=== PATIENT | female | born 1935 | race Caucasian/White ===

== ENCOUNTER 2017-01-16 16:41 | Observation (INO) | payer BC, OTHER ==
[~2017-01-16] VITALS: Ht 154.9 cm; Wt 58.8 kg
[~2017-01-16 16:41] MED LIST: ALBU1AER9 INH; AMB5 PO; AMLO-110 PO; ASPI1TAB83 PO; CHOL100010 PO; FEXO1TAB46 PO; FLUO0.1S12 OPB; FSM70 PO; OMEP20CA9 PO; ZFR4 PO
[2017-01-16] MEDS ORDERED: ASCA500 PO (19:21)
[2017-01-16] MEDS ORDERED: ALBU18002 INH (19:21)
[2017-01-16 19:39] LABS: BASO % 0.5 %; BASO ABS # 0.04 K/uL (0-0.2); COMPLETE YES; EOS % 7.3 %; HEMATOCRIT 39.3 % (37-47); IG% 0.1 %; LYMPH % 30.6 %; LYMPH ABS # 2.51 K/uL (1.2-3.4); MEAN CELL VOLUME 88.5 fL (80-100); MEAN CORPUSCULAR HEMOGLOBIN 29.7 pg (25-34); MEAN CORPUSCULAR HGB CONC 33.6 g/dl (32-36); MEAN PLATELET VOLUME 9.8 fL (7.4-10.4); MONO % 7.9 %; NEUT % 53.6 %; PLATELET COUNT 241 K/uL (130-400); RED BLOOD COUNT 4.44 M/uL (4.2-5.4); WHITE BLOOD COUNT 8.21 K/uL (4.8-10.8)
[2017-01-16 19:52] LABS: INR 0.9 (0.9-1.1); PROTHROMBIN TIME (PATIENT) 9.9 SECONDS (9.0-12.0)
[2017-01-16 19:59] LABS: ALT/SGPT 15 U/L (12-78); BLOOD UREA NITROGEN 18 mg/dl (7-18); CALCIUM 9.2 mg/dl (8.5-10.1); CARBON DIOXIDE 26 mmol/L (21-32); CHLORIDE 107 mmol/L (98-107); CREATININE 0.75 mg/dl (0.60-1.20); GLUCOSE 92 mg/dl (70-99); POTASSIUM 3.3 mmol/L (3.5-5.1); SODIUM 142 mmol/L (136-145)
[2017-01-16 20:02] LABS: ALKALINE PHOSPHATASE 95 U/L (45-117); AST/SGOT 14 U/L (15-37)
[2017-01-16 22:49] LABS: URINE APPEARANCE CLEAR (CLEAR); URINE BILIRUBIN NEG (NEG); URINE COLOR YELLOW; URINE EPITHELIAL CELL AUTO >30 /lpf (0-5); URINE NITRITE NEG (NEG); URINE SPECIFIC GRAVITY 1.018 (1.000-1.030); UROBILINOGEN NEG (NEG)
[2017-01-16 22:50] LABS: MANUAL MICROSCOPIC REQUIRED? NO; REVIEW REQ? NO
[2017-01-16] MEDS ORDERED: ZOLPIDEM TARTRATE 5 MG TAB PO PRN (23:15)
[2017-01-16] MEDS ORDERED: ALBUTEROL HFA 8 GM INHALER INH PRN (23:15)
[2017-01-16] MEDS ORDERED: ACETAMINOPHEN 325 MG TAB PO PRN (23:15)
[2017-01-16 23:18] LABS: MAGNESIUM 2.1 mg/dl (1.8-2.4)
[2017-01-16 23:25] VITALS: O2SAT 96
[2017-01-16 23:45] VITALS: BP 156/81; PULSE 77; TEMP 36.7; Ht 154.9 cm; Wt 58.8 kg
[2017-01-17] MEDS ORDERED: IV FLUIDS COMPLETED PRN (00:15)
--- NOTE | 2017-01-17 00:20 | EMERGENCY ROOM VISIT NOTE ---
History Report prepared by Te: Shabana Li Under the Supervision of: Dr. Ivan Shannon M.D. First contact with patient: 18:44 Chief Complaint: RECTAL BLEEDING Stated Complaint: RECTAL BLEEDING Nursing Triage Summary: Patient c/o rectal bleeding since yesterday afternoon, hx of the same, rectal prolapse. "It's almost like a period, it can saturate a pad." (approx 2 hours) History of Present Illness The patient is a 81 year old female who presents to the Emergency Room with complaints of worsening rectal bleeding that started yesterday afternoon. The patient states that she has been experiencing intermittent light rectal bleeding over the last couple months, but ever since yesterday afternoon it has been heavy. The patient states that the bleeding is so heavy that it could saturate a pad. The patient states that the bleeding is not associated to bowel movements and it seems to occur at any time. She states that she experienced similar symptoms in the past when she was diagnosed with a rectal prolapse. She adds that she could see her rectum had prolapsed earlier today. The patient is also experiencing back pain, urinary symptoms, and some worsening lower extremity edema. Pt denies LOC, headache, fevers, chills, diaphoresis, visual changes, neck pain, chest pain, breathing difficulties, nausea, vomiting, abdominal pain, melena, hematochezia, numbness, weakness, lymphadenopathy, rash , or other complaints. Source of History: patient Onset: yesterday afternoon Position: other (rectum) Quality: other (rectal bleeding) Timing: worsening Associated Symptoms: + back pain, + urinary symptoms Note: worsening lower extremity edema Review of Systems See HPI for pertinent positives and negatives. A total of ten systems were reviewed and were otherwise negative. Past Medical & Surgical Medical Problems: (1) Anemia Nos (2) Asthma, Unspecified (3) Diverticulosis Colon (W/O Ment Of Hemorrhage) (4) Esophageal Reflux (5) Esophageal Stricture (6) Hypertension Nos (7) Rectal bleeding (8) Rectal prolapse Family History Cancer Heart disease Social History Smoking Status: Never Smoker Alcohol Use: none Drug Use: none Marital Status: Housing Status: lives with significant other Occupation Status: retired Current/Historical Medications Scheduled Alendronate Sodium (Alendronate Sodium), 70 MG PO WK Amlodipine (Norvasc), 5 MG PO DAILY Ascorbic Acid (Vitamin C), Unknown Dose PO DAILY Aspirin (Aspirin), PO DAILY Cholecalciferol (Vitamin D), Unknown Dose PO DAILY Fexofenadine Hcl (Kimberlee), 180 MG PO DAILY Fluorometholone (Ophth) (Fluorometholone), 1 DROP OPB MWF Omeprazole (Prilosec), 20 MG PO DAILY Scheduled PRN Albuterol Sulfate (Proair Respiclick), 2 PUFFS INH Q4H PRN for Shortness of Breath Allergies Coded Allergies: Morphine (Verified Allergy, Intermediate, RASH, 01/16/17) Terazosin (Verified Allergy, Mild, RASH, 01/16/17) Physical Exam Vital Signs Date Time Temp Pulse Resp B/P Pulse Ox O2 Delivery O2 Flow Rate FiO2 01/16/17 22:50 82 20 151/77 94 Room Air 01/16/17 20:57 74 20 141/71 93 Room Air 01/16/17 19:31 71 01/16/17 19:20 70 20 130/68 99 Room Air 01/16/17 19:15 96 Room Air 01/16/17 17:09 37.1 79 16 147/76 97 Room Air Physical Exam GENERAL: Awake, alert, well-appearing, in no distress HENT: Normocephalic, atraumatic. Oropharynx unremarkable. EYES: Normal conjunctiva. Sclera non-icteric. NECK: Supple. No nuchal rigidity. FROM. No JVD. RESPIRATORY: Clear to auscultation. CARDIAC: Regular rate, normal rhythm. Extremities warm and well perfused. Pulses equal. ABDOMEN: Soft, non-distended. No tenderness to palpation. No rebound or guarding. No masses. RECTAL: Heme positive. MUSCULOSKELETAL: Chest examination reveals no tenderness. The back is symmetrical on inspection without obvious abnormality. There is no CVA tenderness to palpation. No joint edema. LOWER EXTREMITIES: Calves are equal size bilaterally and non-tender. No edema. No discoloration. NEURO: Normal sensorium. No sensory or motor deficits noted. SKIN: No rash or jaundice noted. Medical Decision & Procedures Laboratory Results 01/16/17 19:20 Red Blood Count 4.44, Mean Corpuscular Volume 88.5, Mean Corpuscular Hemoglobin 29.7, Mean Corpuscular Hemoglobin Concent 33.6, Mean Platelet Volume 9.8, Neutrophils (%) (Auto) 53.6, Lymphocytes (%) (Auto) 30.6, Monocytes (%) (Auto) 7.9, Eosinophils (%) (Auto) 7.3, Basophils (%) (Auto) 0.5, Neutrophils # (Auto) 4.40, Lymphocytes # (Auto) 2.51, Monocytes # (Auto) 0.65, Eosinophils # (Auto) 0.60, Basophils # (Auto) 0.04 01/16/17 19:20 Test 01/16/17 19:20 01/16/17 22:29 White Blood Count 8.21 K/uL (4.8-10.8) Red Blood Count 4.44 M/uL (4.2-5.4) Hemoglobin 13.2 g/dL (12.0-16.0) Hematocrit 39.3 % (37-47) Mean Corpuscular Volume 88.5 fL (80-100) Mean Corpuscular Hemoglobin 29.7 pg (25-34) Mean Corpuscular Hemoglobin Concent 33.6 g/dl (32-36) Platelet Count 241 K/uL (130-400) Mean Platelet Volume 9.8 fL (7.4-10.4) Neutrophils (%) (Auto) 53.6 % Lymphocytes (%) (Auto) 30.6 % Monocytes (%) (Auto) 7.9 % Eosinophils (%) (Auto) 7.3 % Basophils (%) (Auto) 0.5 % Neutrophils # (Auto) 4.40 K/uL (1.4-6.5) Lymphocytes # (Auto) 2.51 K/uL (1.2-3.4) Monocytes # (Auto) 0.65 K/uL (0.11-0.59) Eosinophils # (Auto) 0.60 K/uL (0-0.5) Basophils # (Auto) 0.04 K/uL (0-0.2) RDW Standard Deviation 44.0 fL (36.4-46.3) RDW Coefficient of Variation 13.6 % (11.5-14.5) Immature Granulocyte % (Auto) 0.1 % Immature Granulocyte # (Auto) 0.01 K/uL (0.00-0.02) Prothrombin Time 9.9 SECONDS (9.0-12.0) Prothromb Time International Ratio 0.9 (0.9-1.1) Activated Partial Thromboplast Time 26.8 SECONDS (21.0-31.0) Partial Thromboplastin Ratio 1.0 Anion Gap 9.0 mmol/L (3-11) Est Creatinine Clear Calc Drug Dose 48.5 ml/min Estimated GFR () 86.6 Estimated GFR (Non- 74.8 BUN/Creatinine Ratio 24.0 (10-20) Calcium Level 9.2 mg/dl (8.5-10.1) Magnesium Level 2.1 mg/dl (1.8-2.4) Total Bilirubin 0.2 mg/dl (0.2-1) Direct Bilirubin < 0.1 mg/dl (0-0.2) Aspartate Amino Transf (AST/SGOT) 14 U/L (15-37) Alanine Aminotransferase (ALT/SGPT) 15 U/L (12-78) Alkaline Phosphatase 95 U/L (45-117) Total Protein 7.0 gm/dl (6.4-8.2) Albumin 3.7 gm/dl (3.4-5.0) Lipase 85 U/L (73-393) Urine Color YELLOW Urine Appearance CLEAR (CLEAR) Urine pH 6.0 (4.5-7.5) Urine Specific [place] 1.018 (1.000-1.030) Urine Protein NEG (NEG) Urine Glucose (UA) NEG (NEG) Urine Ketones NEG (NEG) Urine Occult Blood NEG (NEG) Urine Nitrite NEG (NEG) Urine Bilirubin NEG (NEG) Urine Urobilinogen NEG (NEG) Urine Leukocyte Esterase SMALL (NEG) Urine WBC (Auto) 1-5 /hpf (0-5) Urine RBC (Auto) 0-4 /hpf (0-4) Urine Hyaline Casts (Auto) 0 /lpf (0-5) Urine Epithelial Cells (Auto) >30 /lpf (0-5) Urine Bacteria (Auto) NEG (NEG) Laboratory results reviewed by me ECG Indication: back/shoulder pain Rate (beats per minute): 77 Rhythm: normal sinus Findings: no acute ischemic change, no ectopy ED Course 1901: The patient was evaluated in room C4. A complete history and physical exam was performed. 2155: Upon reexamination, the patient was resting comfortably. I discussed the test results and treatment plan with her. The patient will be evaluated for further management. 2211: Discussed the patient's case with Dr. Deyvi KELLOGG. The patient will be evaluated for further treatment and disposition. Medical Decision Triage Nursing notes reviewed. The patient's presentation and history were concerning for GI bleeding. Etiologies such as diverticulosis, AVM, coagulopathy, prolapse,Colitis, inflammatory bowel disease, malignancy,Beatriz-Patricia tear, esophagitis, peptic ulcer disease, variceal bleed, gastritis, epistaxis, fissure, hemorrhoids, as well as others were entertained. The patient was evaluated. She had no evidence of prolapse on examination. She notes that it does come and go. The patient does have heme positive stools. The patient's CBC, chemistry panel, coags, LFTs and lipase were unremarkable. She did describe a significant amount of bleeding from her rectum. No obvious source is seen at this time. Further evaluation and management is appropriate to elucidate the cause and prevent any serious issues. Consultation was made with internal medicine. The patient was evaluated in the Emergency Room for further treatment. The chart was completed utilizing [employer] Speech voice recognition software. Grammatical errors, random word insertions, pronoun errors, and incomplete sentences are an occasional consequence of this system due to software limitations, ambient noise, and hardware issues. Any formal questions or concerns about the content, text, or information contained within the body of this dictation should be directly addressed to the physician for clarification. Consults Time Called: -- Consulting Physician: Dr. Deyvi KELLOGG Returned Call: [phone] Discussed the patient's case with Dr. Deyvi KELLOGG. The patient will be evaluated for further treatment and disposition. Impression Primary Impression: Lower GI bleed Scribe Attestation The scribe's documentation has been prepared under my direction and personally reviewed by me in its entirety. I confirm that the note above accurately reflects all work, treatment, procedures, and medical decision making performed by me. Departure Information Dispostion Being Evaluated By Hospitalist Referrals Kailee Longoria M.D. (PCP) Patient Instructions My [facility]
--- NOTE | 2017-01-17 05:06 | History and Physical ---
History & Physical Date & Time of Service: Jan 17, 2017 at 04:54 Chief Complaint: Rectal Bleeding, Rectal Prolapse Primary Care Physician: Kailee Longoria M.D. History of Present Illness Source: patient The patient is an 81-year-old female who presents to the emergency department with report of intermittent light rectal bleeding over the past few months, that worsens yesterday afternoon and has become have enough to soak a pad per hour. She does have a history of a rectal prolapse, has recently had a bilateral mastectomy, and is due for surgery on January 30 at [place] for gynecologic surgery, rectal prolapse surgery and breast reconstruction. She did have these symptoms in the past, and the bleeding was attributed to rectal prolapse. She does take aspirin daily. Past Medical/Surgical History Medical Problems: (1) Anemia Nos Status: Chronic (2) Asthma, Unspecified Status: Chronic (3) Diverticulosis Colon (W/O Ment Of Hemorrhage) Status: Chronic (4) Esophageal Reflux Status: Chronic (5) Esophageal Stricture Status: Chronic (6) Hypertension Nos Status: Chronic Family History Cancer Heart disease Social History Smoking Status: Never Smoker Smokeless Tobacco Use: No Drug Use: none Marital Status: Housing status: lives with significant other Occupational Status: retired Multi-Drug Resistant Organisms History of MDRO: No Allergies Coded Allergies: Morphine (Verified Allergy, Intermediate, RASH, 01/16/17) Terazosin (Verified Allergy, Mild, RASH, 01/16/17) Home Medications Scheduled Alendronate Sodium (Alendronate Sodium), 70 MG PO WK Amlodipine (Norvasc), 5 MG PO DAILY Ascorbic Acid (Vitamin C), Unknown Dose PO DAILY Aspirin (Aspirin), PO DAILY Cholecalciferol (Vitamin D), Unknown Dose PO DAILY Fexofenadine Hcl (Kimberlee), 180 MG PO DAILY Fluorometholone (Ophth) (Fluorometholone), 1 DROP OPB MWF Omeprazole (Prilosec), 20 MG PO DAILY Scheduled PRN Albuterol Sulfate (Proair Respiclick), 2 PUFFS INH Q4H PRN for Shortness of Breath Review of Systems The patient denies chest pain, palpitations, shortness of breath, cough, lower extremity swelling, vision change, hearing change, sore throat, fevers, chills, sweats, weight change, fatigue, nausea, vomiting, abdominal pain, pelvic pain, blood in urine, dysuria, urinary frequency or urgency, lightheadedness, dizziness, headache, memory loss, rash, imbalance, focal or generalized weakness , numbness or tingling in arms or legs, arthralgias or myalgias, back or neck pain, night sweats, or allergy symptoms. The review of systems is otherwise negative other than for that already noted above, and at least 10 systems have been reviewed. Physical Exam Vital Signs Date Time Temp Pulse Resp B/P Pulse Ox O2 Delivery O2 Flow Rate FiO2 01/16/17 23:45 36.7 77 18 156/81 Room Air 01/16/17 23:25 78 18 151/77 96 01/16/17 22:50 82 20 151/77 94 Room Air 01/16/17 20:57 74 20 141/71 93 Room Air 01/16/17 19:31 71 01/16/17 19:20 70 20 130/68 99 Room Air 01/16/17 19:15 96 Room Air 01/16/17 17:09 37.1 79 16 147/76 97 Room Air The patient is awake, well-developed and adequately nourished, alert and oriented 3, normocephalic and atraumatic, lying in bed and in no acute distress. HEENT--PERRL, EOMI, mucous membranes and oropharynx normal. Neck--supple, no JVD or bruits, thyroid normal, trachea midline, no adenopathy. Heart--normal S1 and S2, no extra beats, no murmurs, rubs or gallops. Lungs--clear bilaterally with good air movement, no respiratory distress, no accessory muscle use. Abdomen--normal bowel sounds and soft, nontender and nondistended, no hernias or masses, no organomegaly. Extremities--no cyanosis, clubbing or edema. There are good distal pulses b/l. Dermatologic--normal skin turgor, normal color, warm and dry, no abnormal lymph nodes, no rash. Neurologic--cranial nerves II through XII grossly intact, motor and sensory examination normal. Rheumatologic--normal range of motion, nontender, muscles and joints. Psychiatric--normal affect. Diagnostics Laboratory Results Results Past 24 Hours Test 01/16/17 19:20 01/16/17 22:29 Range/Units White Blood Count 8.21 4.8-10.8 K/uL Red Blood Count 4.44 4.2-5.4 M/uL Hemoglobin 13.2 12.0-16.0 g/dL Hematocrit 39.3 37-47 % Mean Corpuscular Volume 88.5 80-100 fL Mean Corpuscular Hemoglobin 29.7 25-34 pg Mean Corpuscular Hemoglobin Concent 33.6 32-36 g/dl Platelet Count 241 130-400 K/uL Mean Platelet Volume 9.8 7.4-10.4 fL Neutrophils (%) (Auto) 53.6 % Lymphocytes (%) (Auto) 30.6 % Monocytes (%) (Auto) 7.9 % Eosinophils (%) (Auto) 7.3 % Basophils (%) (Auto) 0.5 % Neutrophils # (Auto) 4.40 1.4-6.5 K/uL Lymphocytes # (Auto) 2.51 1.2-3.4 K/uL Monocytes # (Auto) 0.65 0.11-0.59 K/uL Eosinophils # (Auto) 0.60 0-0.5 K/uL Basophils # (Auto) 0.04 0-0.2 K/uL RDW Standard Deviation 44.0 36.4-46.3 fL RDW Coefficient of Variation 13.6 11.5-14.5 % Immature Granulocyte % (Auto) 0.1 % Immature Granulocyte # (Auto) 0.01 0.00-0.02 K/uL Prothrombin Time 9.9 9.0-12.0 SECONDS Prothromb Time International Ratio 0.9 0.9-1.1 Activated Partial Thromboplast Time 26.8 21.0-31.0 SECONDS Partial Thromboplastin Ratio 1.0 Sodium Level 142 136-145 mmol/L Potassium Level 3.3 3.5-5.1 mmol/L Chloride Level 107 98-107 mmol/L Carbon Dioxide Level 26 21-32 mmol/L Anion Gap 9.0 3-11 mmol/L Blood Urea Nitrogen 18 7-18 mg/dl Creatinine 0.75 0.60-1.20 mg/dl Est Creatinine Clear Calc Drug Dose 48.5 ml/min Estimated GFR () 86.6 Estimated GFR (Non- 74.8 BUN/Creatinine Ratio 24.0 10-20 Random Glucose 92 70-99 mg/dl Calcium Level 9.2 8.5-10.1 mg/dl Magnesium Level 2.1 1.8-2.4 mg/dl Total Bilirubin 0.2 0.2-1 mg/dl Direct Bilirubin < 0.1 0-0.2 mg/dl Aspartate Amino Transf (AST/SGOT) 14 15-37 U/L Alanine Aminotransferase (ALT/SGPT) 15 12-78 U/L Alkaline Phosphatase 95 45-117 U/L Total Protein 7.0 6.4-8.2 gm/dl Albumin 3.7 3.4-5.0 gm/dl Lipase 85 73-393 U/L Urine Color YELLOW Urine Appearance CLEAR CLEAR Urine pH 6.0 4.5-7.5 Urine Specific [place] 1.018 1.000-1.030 Urine Protein NEG NEG Urine Glucose (UA) NEG NEG Urine Ketones NEG NEG Urine Occult Blood NEG NEG Urine Nitrite NEG NEG Urine Bilirubin NEG NEG Urine Urobilinogen NEG NEG Urine Leukocyte Esterase SMALL NEG Urine WBC (Auto) 1-5 0-5 /hpf Urine RBC (Auto) 0-4 0-4 /hpf Urine Hyaline Casts (Auto) 0 0-5 /lpf Urine Epithelial Cells (Auto) >30 0-5 /lpf Urine Bacteria (Auto) NEG NEG EKG EKG shows normal sinus rhythm at 77 bpm, there are no acute ST-T changes. Impression Assessment and Plan Rectal bleeding/rectal prolapse--the patient is due for surgery on January 30, and has been following with surgeons at [place]. Consult Dr. Wallace from gastroenterology, as it is unclear whether this bleeding is related to rectal prolapse, which was not noted to be present during the ED examination, but whether this is another form of colon bleeding. She'll be kept nothing by mouth after midnight until GI assessment was completed. Hemoglobin is normal at this time at 13.2. Follow serial laboratories. We will hold aspirin 81 mg by mouth daily. Hypertension--continue amlodipine 5 mg by mouth daily. GERD--change omeprazole 20 mg by mouth daily to pantoprazole 40 mg IV daily. Asthma--available Ventolin HFA usage puffs 4 times a day when necessary. Hypokalemia--we'll place on IV fluids and repeat laboratories. We will hold alendronate, ascorbic acid, cholecalciferol, fexofenadine. Continue fluorometholone ophthalmic solution 1 drop OPB Monday. Level of Care Med/Surg Advanced Directives Existing Advance Directive: No Existing Living Will: No Existing Power of Project Asst: No Resuscitation Status FULL RESUSCITATION VTE Prophylaxis VTE Risk Assessment Done? Y/N: Yes Risk Level: Moderate Given or contraindicated: SCD's
[2017-01-17 07:44] VITALS: BP 126/73; PULSE 74; TEMP 36.6; O2SAT 91
[2017-01-17] MEDS: FLUOROMETHOLONE~ORDER AWAITING ACTION SCH ×2 (08:00→16:00)
[2017-01-17] MEDS ORDERED: FEXOFENADINE HCL 180 MG TAB PO SCH (09:00)
[2017-01-17] MEDS ORDERED: AMLODIPINE BESYLATE 5 MG TAB PO SCH (09:00)
[2017-01-17 09:33] LABS: BASO % 1.9 %; COMPLETE YES; EOS % 13.9 %; HEMATOCRIT 38.9 % (37-47); LYMPH % 33.7 %; LYMPH ABS # 1.77 K/uL (1.2-3.4); MEAN CORPUSCULAR HEMOGLOBIN 29.2 pg (25-34); MEAN CORPUSCULAR HGB CONC 33.2 g/dl (32-36); MEAN PLATELET VOLUME 9.3 fL (7.4-10.4); MONO % 8.2 %; NEUT % 42.3 %; PLATELET COUNT 222 K/uL (130-400); RED BLOOD COUNT 4.42 M/uL (4.2-5.4); WHITE BLOOD COUNT 5.25 K/uL (4.8-10.8)
[2017-01-17] MEDS ORDERED: PANTOprazole INJ 40 MG in SYRINGE 0 ML IV SCH (11:00)
--- NOTE | 2017-01-17 13:01 | Discharge Instructions ---
Discharge Instructions Date of Service Jan 17, 2017. Admission Reason for Admission: Rectal Bleeding, Rectal Prolapse Discharge Discharge Diagnosis / Problem: Rectal Prolapse Discharge Goals Goal(s): Decrease discomfort, Improve function, Increase independence Activity Recommendations Activity Limitations: as noted below Lifting Limitations: gradually increase as tolerated Exercise/Sports Limitations: gradually increase as tolerated May Resume Sexual Activity: when tolerated Shower/Bathe: no limitations . Instructions / Follow-Up Instructions / Follow-Up Rectal Prolapse with Bleeding: - At this time discontinue your daily aspirin which will likely be held in anticipation of your upcoming surgery. - Your blood counts have remained good during admission - Please keep your appointment for pre-operative clearance on and your scheduled surgery on January 30, 2017 - Please see your family doctor in 7-10 days - they may want to repeat your blood counts to confirm they are stable Diet: - Recommend and easy to digest diet and to keep stool soft for easy bowel movements - Stay hydrated and avoid constipating foods. Getting adequate fiber in your diet will help soften stools Follow-Up: - Please follow-up with your family doctor - Dr. Longoria - on January 25, 2017 at 9: 50 AM Current Hospital Diet Patient's current hospital diet: Clear Liquid Diet Discharge Diet Recommended Diet: Regular Diet Pending Studies Studies pending at discharge: no Medical Emergencies . Who to Call and When: Medical Emergencies: If at any time you feel your situation is an emergency, please call 911 immediately. . Non-Emergent Contact Non-Emergency issues call your: Primary Care Provider Call Non-Emergent contact if: you have a fever, your pain is concerning you, you have any medication questions . . "Provider Documentation" section prepared by Nanette Flowers. VTE Core Measure Inpt VTE Proph given/why not?: SCD's
--- NOTE | 2017-01-17 14:33 | Discharge Summary ---
Discharge Summary Date of Service Jan 17, 2017. (Nanette Flowers PA-C) Discharge Summary Admission Date: Jan 16, 2017 at 23:03 Discharge Date: Jan 17, 2017 Discharge Disposition: Home Principal Diagnosis: Rectal Prolapse with Bleeding Problems/Secondary Diagnoses: 1. Breast CA S/P Mastectomy 2. HTN 3. GERD 4. Asthma Consultations: 1. Gastroenterology (Nanette Flowers PA-C) Medication Reconciliation Continued Medications: Albuterol Sulfate (Proair Respiclick) 108 Mcg/Act Aer 2 PUFFS INH Q4H PRN for Shortness of Breath Alendronate Sodium (Alendronate Sodium) 70 Mg Tab 70 MG PO WK TAKES ON MONDAY Amlodipine (Norvasc) 5 Mg Tab 5 MG PO DAILY, TAB Ascorbic Acid (Vitamin C) Unknown Strength Tab Unknown Dose PO DAILY Cholecalciferol (Vitamin D) Unknown Strength Tab Unknown Dose PO DAILY Fexofenadine Hcl (Kimberlee) 180 Mg Tab 180 MG PO DAILY, TAB Fluorometholone (Ophth) (Fluorometholone) 0.1 % Debbie 1 DROP OPB MWF Omeprazole (Prilosec) 20 Mg Cap 20 MG PO DAILY, CAP Discontinued Medications: Aspirin (Aspirin) 81 Mg Tab PO DAILY Discharge Exam Review of Systems: Constitutional: No chills, No fever Eyes: No worsening of vision ENT: No nasal symptoms, No sore throat, No trouble swallowing Respiratory: No cough, No shortness of breath Cardiovascular: No chest pain Abdomen: No GI bleeding, No constipation, No diarrhea, No nausea, No pain, No vomiting Musculoskeletal: No calf pain, No swelling Genitourinary - Female: No dysuria Integumentary: No rash Physical Exam: General Appearance: WD/WN, no apparent distress, + thin Eyes: sclerae normal ENT: hearing grossly normal Neck: supple, no JVD, trachea midline Respiratory/Chest: lungs clear, normal breath sounds, no respiratory distress, no accessory muscle use Cardiovascular: regular rate, rhythm, no gallop, no murmur Abdomen / GI: normal bowel sounds, non tender, soft Extremities: no calf tenderness, no pedal edema Neurologic/Psychiatric: alert, oriented x 3 Skin: normal color, warm/dry (Nanette Flowers PA-C) Hospital Course ADMISSION: The patient is an 81-year-old female who presents to the emergency department with report of intermittent light rectal bleeding over the past few months, that worsens yesterday afternoon and has become have enough to soak a pad per hour. She does have a history of a rectal prolapse, has recently had a bilateral mastectomy, and is due for surgery on January 30 at [place] for gynecologic surgery, rectal prolapse surgery and breast reconstruction. She did have these symptoms in the past, and the bleeding was attributed to rectal prolapse. She does take aspirin daily. HOSPITAL COURSE: Ms. Goldsmith was admitted for rectal bleeding likely secondary to rectal prolapse. Concerned placed for alternative etiology and gastroenterology was consulted. Patient states she has been dealing with this rectal prolapse for approximately 3 months and normally has scant bleeding. However yesterday she was able to soak one pad with bright red blood which is unusual for her. However, since admission no further rectal bleeding has occurred. Patient experiences rectal prolapse with ambulation but resolution with sitting. She denies pain with this rectal prolapse. Hemoglobin on admission was 13.2 and remained stable with repeat of 12.9. Due to increased rectal bleeding she was instructed to discontinue her ASA at this time. She has preoperative clearance on 01/19/2017 with planned repair of rectal prolapse, gynecological repair, and breast reconstruction on 01/30/2017. PCP follow-up established for 01/25/2017. Recommendations given to consume a diet that is easy to digest and avoid constipation. Patient is afebrile, hemodynamically stable, and optimal for discharge home with outpatient follow-up. DISPOSITION: Routine monitoring with CBC as outpatient Total Time Spent: Greater than 30 minutes This includes examination of the patient, discharge planning, medication reconciliation, and communication with other providers. (Nanette Flowers, PA-C) i personally examined pt and verified all johnson points w A Kristie PAC feeling better wants to go home, has outpt f/u already set up. no further bleeding. no acute blood loss anemia stable for home as above (Jose Muniz D.O.) Discharge Instructions Please refer to the electronic Patient Visit Report (Discharge Instructions) for additional information. (Nanette Flowers, FRAN-C) Additional Copies To Kailee Longoria M.D.
[2017-01-17 15:03] VITALS: BP 127/60; PULSE 67; TEMP 36.7; O2SAT 94
[2017-01-17 15:27] VITALS: BP 127/60; PULSE 67; TEMP 36.7; O2SAT 94
--- NOTE | 2017-01-17 17:22 | GASTROINTESTINAL CONSULTATION ---
DATE OF CONSULTATION: 01/17/2017 GASTROENTEROLOGY CONSULTATION CHIEF COMPLAINT: Rectal bleeding and rectal prolapse. HISTORY OF PRESENT ILLNESS: Mrs. Goldsmith is an 81-year-old white female with a history of bilateral breast cancer with mastectomy and underwent a round of chemotherapy with prolonged hospitalization due to poor tolerance. The patient had presented with several episodes of rectal bleeding over the last couple of months that seemed to intensify over the past 24 hours and had soaked her Depend's undergarment, more thoroughly than it had in past months. This was painless in nature. She did report that she had a colonoscopy done approximately 6-[address] Joyner at [facility] and unfortunately I do not have the report of this procedure, but she tells me that there was nothing abnormal found and no samples were taken. At the present time, the patient has not had any additional bleeding. She does use aspirin on a daily basis but does not use any anticoagulants. PAST MEDICAL HISTORY: Significant for asthma, anemia, colonic diverticulosis, reflux, stricture, hypertension as well as the breast cancer with bilateral mastectomy and plain breast reconstruction in January 30. The patient was also seen by Dr. Wetzel in colorectal surgery from [place] and plans to address the rectocele also in progress for January. SOCIAL HISTORY: The patient denies tobacco or alcohol use. She is , lives with her significant other and is retired. ALLERGIES: SHE IS ALLERGIC TO MORPHINE WHICH PRODUCED HIVES AND TERAZOSIN. HOME MEDICATIONS: Include alendronate, amlodipine, ascorbic acid, aspirin, vitamin D, fexofenadine, fluorometholone ophthalmic, and omeprazole 20 mg daily. REVIEW OF SYSTEMS: Otherwise noncontributory based on 14-point exam except for mentioned above. The patient denies any current odynophagia, dysphagia, hematemesis, coffee-ground emesis. The patient does not have any melena, bright red blood per rectum or significant straining and seems to control her stools reasonably well with prune juice. She denied any chest pain, shortness of breath during these events and had no syncopal or near syncopal episodes, described. FAMILY HISTORY: Noncontributory. There is family history of cancer, though type is not known. There is also heart disease. PHYSICAL EXAMINATION: GENERAL: The patient is awake, alert and oriented x3, at this time resting comfortably in bed. The patient is oriented to person, place and time. ADMISSION VITAL SIGNS: Blood pressure 147/76, heart rate 79, respirations 16, afebrile at 37.1. HEENT: Sclerae are anicteric, conjunctiva moist. Oral mucosa moist. HEART: Normal S1, S2. LUNGS: Clear to auscultation. ABDOMEN: Soft, nontender, nondistended, normal bowel sounds, no rebound or guarding. I do not appreciate hepatosplenomegaly. There are no abdominal bruits. EXTREMITIES: Without clubbing, cyanosis or edema. RECTAL: Inspection of the perianal region reveals a small tag externally, but there is no evidence currently of a prolapsed tissue with the patient does describe can be generally a golf ball sized and is more frequently present than not. At the present time, she said that it has been exposed over the last 12-24 hours. ADMISSION LABORATORY STUDIES: Include white count of 8.2, hemoglobin 13.2, MCV 88, platelets 241,000. INR is 0.9, PTT 26.8. Potassium is slightly low at 3.3, BUN and creatinine are 18 and 0.75. LFTs are normal with total bilirubin 0.2, direct 0.1, AST 14, ALT 15, alkaline phosphatase 95, albumin 3.7, lipase 85. Urinalysis unremarkable. REPEAT LABORATORY STUDIES: Include hemoglobin was 12.9 this morning, white count 5.25, and platelets 222,000. Urinalysis - leukocyte esterase small amounts. There is no blood in the urine. IMPRESSION AND PLAN: The patient with report of rectal prolapse with upcoming surgery. This led to an increased amount of rectal bleeding recently that was painless in nature. The patient did undergo a colonoscopy recently by Dr. Joyner several weeks ago, although I do not have the report of this as the patient describes there were no abnormal findings detected. I believe at this point with her stable hemoglobin and lack of ongoing rectal bleeding, it is reasonable for her to be discharged with continued workup for her eventual surgery to deal with the rectal prolapse as well as any gynecologic and breast reconstruction needed. She should follow her hemoglobins at least once weekly. Prune juice in order to promote a routine bowel movement without straining and to avoid overly loose or formed stools is recommended. All the patient's questions were answered. If she has any questions, she knows to contact the GI office. Thank you for allowing me to participate in this patient's care.
[2017-01-18] MEDS ORDERED: PANTOprazole SOD 40 MG TAB PO SCH (09:00)
== END 2017-01-17 18:30 | disposition home or self-care (01) ==
LOC: ENRESERVDT → ENRESERVTM → C.EDB 16:42 → C.MS2W 23:03
PROVIDERS: ADMIT Hospitalist; ATTEND Family Medicine
DX: K62.5 Hemorrhage of anus and rectum (principal); K62.3 Rectal prolapse; E87.6 Hypokalemia; J45.909 Unspecified asthma, uncomplicated; K57.91 Diverticulosis of intestine, part unspecified, without perforation or abscess with bleeding; I10 Essential (primary) hypertension; K21.9 Gastro-esophageal reflux disease without esophagitis; Z79.82 Long term (current) use of aspirin; Z85.3 Personal history of malignant neoplasm of breast; Z90.13 Acquired absence of bilateral breasts and nipples; Z83.3 Family history of diabetes mellitus

== ENCOUNTER → 2017-10-26 | Outpatient (CLI) | payer BC ==
[~2017-10-26] MED LIST changes: +ALBU18002 INH; -ALBU1AER9 INH; -AMB5 PO; +ASCA500 PO; -ASPI1TAB83 PO; -ZFR4 PO
--- NOTE | 2017-10-26 16:12 | DIAGNOSTIC IMAGING REPORT ---
L KNEE 1 OR 2 VIEWS ROUTINE CLINICAL HISTORY: L KNEE PAIN pain COMPARISON: None. DISCUSSION: Moderate degenerative change patellofemoral and medial joint compartments. Minimal degenerative changes lateral joint compartment. No evidence for fracture or dislocation. No significant joint effusion. There is no evidence for soft tissue swelling. IMPRESSION: Moderate degenerative change primarily of the medial and patellofemoral joint compartments. No acute process. The above report was generated using voice recognition software. It may contain grammatical, syntax or spelling errors. Electronically signed by: David Briscoe M.D. 10/26/2017 4:11 PM Dictated Date/Time: 10/26/2017 4:10 PM
== END | disposition home or self-care (01) ==
LOC: C.RAD1850 15:57
PROVIDERS: ATTEND Student in an Organized Health Care Education/Training Program
DX: M25.562 Pain in left knee (principal); M89.8X6 Other specified disorders of bone, lower leg

== ENCOUNTER → 2017-11-09 | Outpatient (CLI) | payer BC | END | disposition home or self-care (01) | LOC: C.PAPS 15:31 | PROVIDERS: ATTEND Obstetrics & Gynecology | DX: Z01.419 Encounter for gynecological examination (general) (routine) without abnormal findings (principal) ==

== ENCOUNTER 2024-06-09 06:25 | Inpatient (IN) ==
--- OUTSIDE RECORDS SUMMARY | 2024-06-09 06:29 | External Medical Summary | Continuity of Care Document ---
Author Name Unknown Organization [facility] [address] Address [address] [place], [place] [id number] Care Team Providers Care Research Statistician Name Role Phone Kailee Longoria Primary Care Physician [phone] [id number] Date(s): 03/27/24 - 03/27/24 [facility] [address] [facility] [address] [facility] [address] [place], [place] [phone] Encounter Diagnosis Chronic kidney disease, unspecified(Final) - Discharge Disposition: Home or Self Care Attending Physician: MD Longoria Amy L Referring Physician: MD Longoria Amy L Allergies, Adverse Reactions, Alerts Substance Criticality Severity Reaction Reaction Severity Status morphine rash Active Immunizations Given and Recorded Vaccine Date Status Refusal Reason SARS COVID Vaccine Unspecified 12/08/23 Recorded RSV Vaccine Unspecified 12/08/23 Recorded influenza virus vaccine, inactivated 07/18/23 Give n influenza virus vaccine, inactivated 07/04/22 Give n influenza virus vaccine, inactivated 1 07/14/21 Re corded influenza virus vaccine, inactivated 07/08/21 Give n influenza virus vaccine, inactivated 08/10/20 Give n influenza virus vaccine, inactivated 07/05/19 Give n influenza virus vaccine, inactivated 08/03/18 Give n influenza virus vaccine, inactivated 06/27/17 Give n influenza virus vaccine, inactivated 07/21/16 Give n influenza virus vaccine, inactivated 2 09/09/15 Re corded SARS-CoV-2 mRNA (Pfizer 12+) bivalent 3 07/13/22 R ecorded SARS-CoV-2 (COVID-19) mRNA-1273 vaccine 4 01/20/22 Recorded SARS-CoV-2 (COVID-19) mRNA-1273 vaccine 5 08/09/21 Recorded SARS-CoV-2 (COVID-19) mRNA-1273 vaccine 6 12/14/20 Recorded SARS-CoV-2 (COVID-19) mRNA-1273 vaccine 7 11/16/20 Recorded zoster vaccine live 12/12/18 Recorded zoster vaccine, inactivated 8 10/07/18 Recorded pneumococcal 23-valent vaccine 07/16/17 Recorded pneumococcal 13-valent vaccine 03/25/15 Given tetanus/diphtheria/pertuss, acel (Tdap) 9 08/19/14 Recorded influenza virus vaccine, H1N1 10 12/01/09 Recorded pneumococcal 7-valent vaccine 11 08/02/07 Recorded pneumococcal 7-valent vaccine 12 08/02/07 Recorded 1Result Comment: duplicate 2Result Comment: 2018-09-26: Historical information-source unspecified 3Result Comment: 2022-11-24: Historical information-source unspecified 4Result Comment: 2022-11-24: Historical information-source unspecified 5Result Comment: 2021-09-22: Historical information-source unspecified 6Result Comment: 2021-07-19: Historical information-source unspecified 7Result Comment: 2021-07-19: Historical information-source unspecified 8Location History: [facility] 9Result Comment: 2018-09-26: Historical information-source unspecified 10Result Comment: 2021-07-19: Historical information-source unspecified 11Result Comment: Mistaken entry. 12Result Comment: 2021-07-19: Historical information-source unspecified Medications Kimberlee 180 mg oral tablet Start: 01/31/17 2:09:00 PM EDT, 1 tab, PO, Daily Start Date: 01/31/17 Status: Ordered amLODIPine 10 mg oral tablet Start: 11/02/23 6:40:00 PM EST, 1 tab, PO, Daily, Disp# 30 tab, Refills: 6, Pharmacy: [id number] Start Date: 11/02/23 Status: Ordered fluorometholone 0.1% ophthalmic suspension Start: 04/21/14 3:57:00 PM EDT, 1 drop, both eyes, [id number] Start Date: 04/21/14 Status: Ordered omeprazole 40 mg oral delayed release capsule Start: 11/13/23 11:18:00 AM EST, 1 cap, PO, Daily, Disp# 90 cap, Refills: 1, Pharmacy: [id number] Start Date: 11/13/23 Status: Ordered PARoxetine 10 mg oral tablet Start: 03/18/24 9:40:00 AM EDT, 1 tab, PO, Daily, Disp# 90 tab, Refills: 3, Pharmacy: [id number] Start Date: 03/18/24 Status: Ordered Tylenol Extra Strength 500 mg/15 mL oral liquid Start: 02/01/17 2:50:00 PM EDT, 15 mL, PO, q6h, Disp# 240 mL, Refills: 1, PRN: as needed for pain Start Date: 02/01/17 Status: Ordered Viactiv Soft Calcium Chews Start: 07/19/21 1:25:00 PM EDT, 1 shoft chew, PO, Daily Start Date: 07/19/21 Status: Ordered Problem List Condition Confirmation Course Effective Dates Status H ealth Status Informant Abnormal weight loss Confirmed Active Acquired absence of both breasts Confirmed Active Adult idiopathic generalized osteoporosis Confirmed Active Ankle edema Confirmed Active Ankle edema Confirmed Active Asthma Confirmed Active Benign essential HTN Confirmed Active Grief reaction Confirmed Active Medial meniscus tear Confirmed Active CKD (chronic kidney disease) stage 3, GFR 30-59 ml/min Confirmed Active Rhus dermatitis Confirmed Active Rhus dermatitis Confirmed Active Generalized osteoarthritis of multiple sites Confirmed Active Disorder of eye region Confirmed 07/03/02 Active Dizziness Confirmed Active Dysphagia Confirmed Active MENDENHALL (dyspnea on exertion) Confirmed Active MENDENHALL (dyspnea on exertion) Confirmed Active Essential hypertension Confirmed Active Facial laceration Confirmed Active Fatigue Confirmed Active Fatigue Confirmed Active Esophageal reflux Confirmed Active GI bleed Confirmed Active Chronic generalized pain Confirmed Active H/O fracture of rib Confirmed Active History of hypercalcemia Confirmed Active History of breast cancer in female Confirmed Active Status post total knee replacement, left Confirmed Active S/P total knee arthroplasty Confirmed Active IFG (impaired fasting glucose) Confirmed Active Chronic insomnia Confirmed Active Insomnia Confirmed Active Iron deficiency anemia Confirmed Active [place] of both eyes Confirmed Active Localized edema Confirmed Active Breast cancer in female Confirmed Active Menopausal osteoporosis Confirmed Active Anxious depression Confirmed Active Chronic nausea Confirmed Active Chronic nausea Confirmed Active Mild nausea Confirmed Active Left knee DJD Confirmed Active Paresthesia Confirmed Active Raynaud's disease Confirmed Active Rectal prolapse Confirmed Active Right shoulder pain Confirmed Active Major depressive disorder with single episode, in full remission Confirmed Active Insomnia Confirmed Active Strain of rotator cuff Confirmed Active Episode of syncope Confirmed Active Tear of medial meniscus of left knee Confirmed Active De Quervain's tenosynovitis, left Confirmed Active Episodic memory loss Confirmed Active Female cystocele Confirmed Active Vertigo Confirmed Active Procedures Procedure Date Related Diagnosis Body Site Status Chest X-ray 1 07/18/23 Completed Bone density scan 2 12/22/20 Compl eted CXR - Chest X-ray 3 12/02/20 Compl eted Plain X-ray ribs abnormal 4 08/08/19 Completed History of left knee replacement 08/16/18 Completed Total knee arthroplasty 5 07/18/18 Completed MRI of knee 6 04/04/18 Completed Date of last PAP test 7 11/09/17 C ompleted Date of last PAP test 11/09/17 Com pleted X-ray of left knee 8 10/26/17 Comp leted Removal 9 01/30/17 Completed Removal of skin physician asst fro m subcutaneous tissue of breast 01/30/17 Co mpleted Colonoscopy 10, 11, 12 11/10/16 Co mpleted Bone density scan 10/04/16 Complet ed GI Bleeding Scan 13 09/24/16 Compl eted Sigmoidoscopy, flexible; portillo gnostic, including collection of specimen(s) by brushing or washing, when performed (separate procedure) 14, 15 09/22/16 Comp leted Chest x-ray 16 09/20/[address] of abdomen and pelvis 17 09/20/16 Completed Date of last PAP test 18 09/14/16 Completed Mastectomy 19 08/09/16 Completed Mammogram 20 06/30/16 Completed MRI of breast 21 06/30/16 Complete d Multiple ultrasound guided b iopsies left breast 22 06/15/16 Completed Ultrasound guided biopsy, Le ft Breast 23 06/15/16 Completed Unilateral left digital diag nostic mammogram 24 06/15/16 Completed Mammogram 25 06/14/16 Completed Mammogram 26 06/07/16 Completed Mammogram 27 06/04/14 Completed Chest x-ray 28 08/09/13 Completed Ventilation-perfusion scan 29 08/09/13 Completed Stress echocardiography test interpretation 30 07/11/13 Completed History of cornea transplant 07/25/92 Completed History of corneal transplant 10/16/89 Completed Blepharoplasty of both eyelids Completed Rectal prolapse care 31 C ompleted 11. Hyperinflation with probable trace pleural effusions. 2. No airspace consolidation typical for pneumonia. 2AP Spine L1-L4 T Score: -0.5. Femur Neck Left T score: -1.3 Femur Neck Right T score: -1.7 Femur total left: -0.8 Femur total right -1.0. Z score: 0.7 3No acute process. 41. Periosteal reaction along the lateral left sixth rib. The appearance raises concern for an underlying osseous lesion versus a subacute to chronic rib fx. Correlate with a hx of malignancy and timecourse of potential rib trauma as a metastatic lesion is not excluded. 2. No other evidence of acute cardiopulmonary diease. 5[facility] Left knee 61. Marked chondrosis of the medial joint compartment. 2. Medial extrusion of the medial meniscus with asociated degenerative tar. 3. No evidence of cruciate or collateral ligamnet disruption. 4. No evidence of metastatic disease. 5. Small joint effusion and popleteal cyst. 7normall 8Moderate degenerative change primarily of the medial and patellofemoral joint compartments. No acute process. 9bilateral breast implants 10COLONOSCOPY cecal polyp cold bx, polyp 50 cm cold bx, polyp at 40 cm snared, rectal edema/erythema/ersoions proximal to anal verger over 3 cm bx, left colon extensive diverticulosis 113 tubular adenomas, rectal inflammation 12path reviewed and adenomas as above, the rectum path c/w rectal prolapse per path report. 13[facility] Impression: 1. Normal study. No evidence for GI bleeding focus 14[facility] Impression: diverticulosis in the recto-sigmoid colon an din the sigmoid colon. altered vascular congested, erythematous, friable (with contact bleeding) and inflamed mucosa form 3 to 10 cm. proximal to the anus. Biopsied. Bx's for histology and CMV staining. 15Pathology results: Rectal erosion, biopsy: 1) Microscopic findings most consistent with ischemia. See comment. 2) Stain for CMV negative. Comment: The biopsy shows extensive loss of the crypts. The lamina priopria appears somewhat hemorrhagic and there is acute inflammation present, though no cryptitis or crypt abscess formation. A stain for CMV inclusions is negative. The appearance appears mostconsistent with ischemia. Please correlate clinically. This case was reviewed as an intradeptmentalconsultation. 16[facility] Impression: 1. Negative chest 171. No evidence of bowel obstruction. No evidence of free air. 2. No evidence of acute appendicitis. 3. Diverticulosis. No evidence of acute peridiverticular inflammatory change. 4. Cholelithiasis. 18normal 19bilateral 201. there are metallic biopsy marker is within the patient's biopsy proven cancer is in the left 12:00 and 2:00 posterior breast, which are located at least 5cm apart based on MRI. 2. There is another small 3mm enhancing focus with washout kinetics in the 12:00 and 1:00 posteriorleft breast that is also suspicious. If breast conservation therapy is being considered as a treatment ooption, then second look ultrasound and possible core needle biopsy is recommended. 3. No suspicious axillary, internal mammary or subpectoral lymphadenopty bilaterally. 4. No definite MRI evidence of malignancy within the right breast. 5. Multilobulated 4x5cm T2 hyperintense mass in the right breast, that is not fully evaluated basedon this exam given that is is not completely within the field of view. Further chracterization witha right upper quadrant ultrasound is recommended, if no prior ultrasound or CTs are available for comparison. 6. Probable linear atelectasis in the dependednt portion of the visualized right lung. The patient will receive written notification of the results. 21metal bx marker in cancer in L @12;00; 3mm enhancing focus w/washout kinetics 12:00-1:00 post L; multilobulated 4X5cm T2 hyperintense mass in R; linear atelectasis of R lung 22[facility] Impression: Ultrasound guided biopsy 1. Status post ultrasound guided core biopsy in the 12:00 and 2:30 axes of the left breast, with biopsy markers placed at each site 23Please refer to ther eport from left breast ultrasound guided core biopsy performed at the same time for full detail. 24[facility] Impression: Post procedure imaging for marker placement Please refer to the report from left breast ultrasound-guided core biopsy performed at the same time for full detail 251. Ultrasound guided core needle biopsy is recommended for an indeterminate sold 17mm mass in the 12:00 left breast, which correlates as palpated and also correlates with the mammographic asymmetry. 2. Ultrasound guided core needle biopsy is also recommended for a second smaller, 4mm hypoechoic solid mass in the 2:30 left breast. 26The 2cm focal asymmetry with possible associated architectural distortion near the new palpable lump in the upper outer left breast needs additional evaluation. 27WNL/REPEAT 1 YR 28No acute cardiopulmonary findings 29Low porbability of acute pulmonary embolus 30resting echo images: The left ventricle is normal in size and systolic function. There is mild concentric left ventricular hypertrophy. An estimated left ventricuar ejection fraction is 60%. the leftatrial size is normal. the right ventricle is normal in size and fuction. right atrial size is normal. ther aortic root is normal in size. the mitral valve is normal. there is mitral annular calcification noted. a normal appearing tri-leaflet aorti valve is present. Trace aortic valve insufficiency. The pulmonic vlave is not well seen, but is grossly normal. Trace pulmonic valvular regurgitation.The tircuspid vlave is normal. no evidence of a pericardial effusion, mass or throbus is present. No evidence of cardiac mass or throbus is present. Stress echo images: there was improvemtn in left ventricular systolic funciton and a reduction in left ventricular cavity size poss stress. There was normal augmentation of all left ventricular wall segments post exercise. 31repair of 02/17/17 Results Laboratory List Name Date Creatinine Level (CREAT W/GFR (EST.)) 10/08 Most recent to oldest [Reference Range]: 1 eGFR CKD-EPI [>60 mL/min/1.73 m2] 47 mL/ min/1.73 m2 1 *LOW* (03/27/24 11:47 AM) Estimated CrCl 27.47 mL/min (03/27/24 12:43 PM) Cret [0.60-1.00 mg/dL] 1.13 mg/dL *HI* (03/27/24 11:47 AM) 1Result Comment: Testing Performed By: Dept of Pathology [facility], [address] [place] [id number] Social History Social History Type Response Smoking Status Never smoked cigaret beto Sex Female Patient Care team information Care Team Personnel Name: SCOTT Xiong Tara Position: Nurse Pract - Family Med Member Role: Lifetime Relationship Address: Address: [address] [place] [id number] [place] Name: MD Longoria Amy L Position: Physician - Family Med Member Role: Primary Care Provider Address: Address: [address] [place] [id number] [place] Care Team Related Persons Name: MARLENY ELLSWORTH Address: [place] Address: home [address] [phone]
--- OUTSIDE RECORDS SUMMARY | 2024-06-09 06:29 | External Medical Summary | Continuity of Care Document ---
Author Name Unknown Organization [place] [address] [address] Address [address] [facility] [address] [place] [id number] Care Team Providers Care Roll Filler Name Role Phone Kailee Longoria Primary Care Physician [phone] [id number] Date(s): 03/22/24 - 03/22/[address] [place] [address] [facility] [address] [facility], [address], Entrance A [place] [address] [phone] Encounter Diagnosis Body mass index [BMI] 22.0-22.9, adult(Discharge Diagnosis) - 03/22/24 Breast cancer, left(Discharge Diagnosis) - 03/22/24 Discharge Disposition: Home or Self Care Attending Physician: MD Sow Kristine L Referring Physician: MD Longoria Amy L [...] Daily, Disp# 30 tab, Refills: 6, [id number] Start Date: 11/02/23 Status: Ordered fluorometholone 0.1% ophthalmic suspension Start: 04/21/14 3:57:00 PM EDT, 1 drop, both eyes, qMonWedFri Start Date: 04/21/14 Status: Ordered omeprazole 40 mg oral delayed release capsule Start: 11/13/23 11:18:00 AM EST, 1 cap, PO, Daily, Disp# 90 cap, Refills: 1, Pharmacy: [id number] Start Date: 11/13/23 Status: Ordered PARoxetine 10 mg oral tablet Start: 03/18/24 9:40:00 AM EDT, 1 tab, PO, Daily, Disp# 90 tab, Refills: 3, Pharmacy: [id number] Start Date: 03/18/24 Status: Ordered Tylenol Extra Strength 500 mg/15 mL oral liquid Start: 02/01/17 2:50:00 PM EDT, 15 mL, PO, q6h, Disp# 240 mL, Refills: 1, PRN: as needed for pain Start Date: 02/01/17 Status: Ordered Viactiv Soft Calcium Chews Start: 07/19/21 1:25:00 PM EDT, 1 shoft chew, PO, Daily Start Date: 07/19/21 Status: Ordered Mental Status 03/22/24 Barriers to Learning one year None evide nt Mandatory Health Literacy Documentation Yes Health Literacy Communication Barriers N ever Primary Language Libyan Problem List Condition Confirmation Course Effective Dates [...] Female cystocele Confirmed Active Vertigo Confirmed Active Diagnosis Diagnosis Type Effective Dates Health Status Cl inical Service Informant Breast cancer, left Discharge Diagnosis 03/22/24 Body mass index [BMI] 22.0-22.9, adult Discharge Diagnosis 03/22/24 Non-Specified Procedures Procedure Date Related Diagnosis Body Site [...] Removal 9 01/30/17 Completed Removal of skin director digital analytics fro m subcutaneous tissue of breast 01/30/17 [...] other evidence of acute cardiopulmonary diease. 5[facility] Left knee 61. Marked chondrosis of the [...] c/w rectal prolapse per path report. 13[facility] Impression: 1. Normal study. No evidence for GI bleeding focus 14[facility] Impression: diverticulosis in the recto-sigmoid colon an [...] case was reviewed as an intradeptmentalconsultation. 16[facility] Impression: 1. Negative chest 171. No evidence [...] R; linear atelectasis of R lung 22[facility] Impression: Ultrasound guided biopsy 1. Status post ultrasound guided core biopsy in the 12:00 and 2:30 axes of the left breast, with biopsy markers placed at each site 23Please refer to ther eport from left breast ultrasound guided core biopsy performed at the same time for full detail. 24[facility] Impression: Post procedure imaging for marker placement [...] wall segments post exercise. 31repair of 02/17/17 Vital Signs Most recent to oldest [Reference Range]: 1 Height 158 cm (03/22/24 7:53 AM) Patient Weight 56.5 kg (03/22/24 7:53 AM) Body Mass Index 22.63 kg/m2 (03/22/24 7:53 AM) Temperature [36.5-37.9 DegC] 36 DegC *LOW* (03/22/24 7:53 AM) Heart Rate 65 bpm (03/22/24 7:53 AM) Blood Pressure 163/69mmHg 1 (03/22/24 7:53 AM) Cuff Pulse Pressure 94 mmHg (03/22/24 7:53 AM) 1Result Comment: dr sow notified Social History Social History Type Response Smoking Status Never smoked cigaret beto Sex Female Patient Care team information Care Team Personnel Name: SCOTT Xiong Tara Position: Nurse Pract - Family Med Member Role: Lifetime Relationship Address: Address: [address] [place] [address], [place] [address] Name: MD Longoria Amy L Position: Physician - Family Med Member Role: Primary Care Provider Address: Address: [address] [place] [address], [place] [address] Care Team Related Persons Name: MARLENY ELLSWORTH Address: [place] Address: home [address] [place], [place] [id number]
--- OUTSIDE RECORDS SUMMARY | 2024-06-09 06:29 | External Medical Summary | Continuity of Care Document ---
Author Name Unknown Organization [place] [address] [place] [phone] Care Team Providers Care Hot Wound [place] Production Supervisor Name Role Phone Kailee Longoria Kameron Primary Care Physician [phone] [id number] Date(s): 05/10/24 - 05/10/24 [facility] [address] [place] [address], [address] [address] [phone] Encounter Diagnosis Body mass index [BMI] 22.0-22.9, adult(Discharge Diagnosis) - 05/10/24 Osteoporosis(Discharge Diagnosis) - 05/10/24 Discharge Disposition: Home or Self Care Attending Physician: AIRAM Remy Kimberly A Allergies, Adverse Reactions, Alerts Substance Criticality Severity Reaction Reaction Severity Status morphine rash Active Assessment and Plan Extracted from: Title:Office Visit Note Author:AIRAM Remy Kim berly A Date:05/10/24 1.Osteoporosis STATUS:Chronic condition exacerbated/progressive/side effects of treatment Has a history of osteoporosis that was previously treated with Prolia. Unfortunately, it appears that her last Prolia was over 1 year ago. Her DEXA is overdue, with her last in 12/2020. She has been having an increase in some of the smaller joints. Pain is fleeting and does not inhibit her activity. She has not had any recent falls or injuries. T-score was -1.3 on last DEXA scan. DATA:Labs reviewed. GOAL:Maintain stability. PLAN:Cont current monitoring. .DEXA scan ordered today Will order Prolia after test is completed/reviewed Patient is encouraged to stay active but always use great caution not to fall Continue Calcium and Vitamin Time spent on pre-visit plannin min Face to face time spent w/ patient: 16 min Time spent documenting pertinent clinical information into the EMR: 5 min Total time: 24 min Immunizations Given and Recorded Vaccine Date Status [...] Ordered amLODIPine 10 mg oral tablet Start: 05/08/24 7:50:00 AM EDT, 1 tab, PO, Daily, Disp# 30 tab, Refills: 6, Pharmacy: [id number] Start Date: 05/08/24 Status: Ordered fluorometholone 0.1% ophthalmic suspension Start: 04/21/14 3:57:00 PM EDT, 1 drop, both eyes, qMonWedFri Start Date: 04/21/14 Status: Ordered omeprazole 40 mg oral delayed release capsule Start: 11/13/23 11:18:00 AM EST, 1 cap, PO, Daily, Disp# 90 cap, Refills: 1, Pharmacy: [id number] Start Date: 11/13/23 Status: Ordered PARoxetine 10 mg oral tablet Start: 03/18/24 9:40:00 AM EDT, 1 tab, PO, Daily, Disp# 90 tab, Refills: 3, Pharmacy: [id number] Start Date: 03/18/24 Status: Ordered Tylenol Extra Strength 500 mg/15 mL oral liquid Start: 02/01/17 2:50:00 PM EDT, 15 mL, PO, q6h, Disp# 240 mL, Refills: 1, PRN: as needed for pain Start Date: 02/01/17 Status: Ordered Viactiv Soft Calcium Chews Start: 07/19/21 1:25:00 PM EDT, 1 shoft chew, PO, Daily Start Date: 07/19/21 Status: Ordered Mental Status 05/10/24 Barriers to Learning one year None evide nt Mandatory Health Literacy Documentation Yes Health Literacy Communication Barriers R jama Primary Language Irish Problem List Condition Confirmation Course Effective Dates [...] Diagnosis Diagnosis Type Effective Dates Health Status Clinical Service Informant Body mass index [BMI] 22.0-22.9, adult Discharge Diagnosis 05/10/24 Non-Specified Osteoporosis Discharge Diagnosis 05/10/24 Non-Specified Procedures Procedure Date Related Diagnosis Body [...] Removal 9 01/30/17 Completed Removal of skin small electric engine technician fro m subcutaneous tissue of breast 01/30/17 [...] other evidence of acute cardiopulmonary diease. 5[facility] Left knee 61. Marked chondrosis of [...] c/w rectal prolapse per path report. 13[facility] Impression: 1. Normal study. No evidence for GI bleeding focus 14[facility] Impression: diverticulosis in the recto-sigmoid colon an [...] case was reviewed as an intradeptmentalconsultation. 16[facility] Impression: 1. Negative chest 171. No evidence [...] R; linear atelectasis of R lung 22[facility] Impression: Ultrasound guided biopsy 1. Status post ultrasound guided core biopsy in the 12:00 and 2:30 axes of the left breast, with biopsy markers placed at each site 23Please refer to ther eport from left breast ultrasound guided core biopsy performed at the same time for full detail. 24[facility] Impression: Post procedure imaging for marker placement [...] oldest [Reference Range]: 1 Height 158 cm (05/10/24 3:16 PM) Patient Weight 55.3 kg (05/10/24 3:16 PM) Body Mass Index 22.15 kg/m2 (05/10/24 3:16 PM) Heart Rate 61 bpm (05/10/24 3:16 PM) Respiratory Rate 20 br/min (05/10/24 3:16 PM) Blood Pressure 122/68mmHg (05/10/24 3:16 PM) Cuff Pulse Pressure 54 mmHg (05/10/24 3:16 PM) Social History Social History Type Response Smoking Status Never smoked cigaret beto Sex Female Sex Representation Female (finding) [facility] Outpt Note * AIRAM Remy, Sussy Ha: PERFORM Event Display: [facility] Outpt Note Authored Date: [id number] Chief Complaint Bone/joint aches and pain History of Present Illness Patient is a 88yo female who presents today for acute visit. Has a history of osteoporosis that was previously treated with Prolia. Unfortunately, it appears that her last Prolia was over 1 year ago. Her DEXA is overdue, with her last in 12/2020. She has been having an increase in some of the smaller joints. Pain is fleeting and does not inhibit her activity. She has not had any recent falls or injuries. T-score was -1.3 on last DEXA scan. Review of Systems ROS per HPI Physical Exam Vitals & Measurements HR:61(Monitored) RR:20 BP:122/68 SpO2:94% HT:158cm WT:55.300kg(Dosing) WT:55.3kg BMI:22.15 PHQ2 Data(Data Documented on:05/10/2024 15:15) Emotional health assessment NEGATIVE Gen Appearance: Well developed, well nourishedNAD. A&O x 3. HEENT: NCAT. EOMI. Neck supple. No thyromegaly palpable. Lymph: No submandibular, posterior or anterior cervical adenopathy. CV: RRR. No rubs, or gallops. 2+/6 systolic murmur Lungs: CTAB. No wheezing, rales or rhonchi. Chest rises symmetrically. Abdomen: Scaphoid. No rashes.NABS x 4. Soft. Non-tender. No CVA tenderness bilaterally.No masses palpable. Ext: No LE edema. + 2 posterior tibial pulses. Skin: [place]. Supple. Good turgor. Assessment/Plan 1.Osteoporosis STATUS:Chronic condition exacerbated/progressive/side effects of treatment Has a history of osteoporosis that was previously treated with Prolia. Unfortunately, it appears that her last Prolia was over 1 year ago. Her DEXA is overdue, with her last in 12/2020. She has been having an increase in some of the smaller joints. Pain is fleeting and does not inhibit her activity. She has not had any recent falls or injuries. T-score was -1.3 on last DEXA scan. DATA:Labs reviewed. GOAL:Maintain stability. PLAN:Cont current monitoring. 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 Ankle edema Ankle edema Anxious depression Asthma Benign essential HTN Breast cancer in female Chronic generalized pain Chronic insomnia Chronic nausea Chronic nausea CKD (chronic kidney disease) stage 3, GFR 30-59 ml/min De Quervain's tenosynovitis, left Disorder of eye region Dizziness MENDENHALL (dyspnea on exertion) M[place]ALL (dyspnea on exertion) Dysphagia Episode of syncope Episodic memory loss Esophageal reflux Essential hypertension Facial laceration Fatigue Fatigue Female cystocele Generalized osteoarthritis of multiple sites GI bleed Grief reaction H/O fracture of rib History of breast cancer in female History of hypercalcemia IFG (impaired fasting glucose) Insomnia Insomnia Iron deficiency anemia 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 Localized edema Major depressive disorder with single episode, in full remission Medial meniscus tear Menopausal osteoporosis Mild nausea Paresthesia Raynaud's disease Rectal prolapse Rhus dermatitis Rhus dermatitis Right shoulder pain S/P total knee arthroplasty Status post total knee replacement, left Strain of rotator cuff Tear of medial meniscus of left knee Vertigo Resolved Abnormal loss of weight Acute cystitis Acute sinusitis Adult general medical exam Allergic rhinitis Anterior leg pain Arthralgia Bright red rectal bleeding Dysuria Leg swelling LOM (loss of memory) Medicare annual wellness visit, subsequent Medicare annual wellness visit, subsequent Mild nausea Osteoporosis Pre-op exam Preop examination Right foot pain Shortness of breath Wellness examination Procedure/Surgical History Chest X-ray| Service Date: 3Bone density scan| Service Date: 12/22/2020XR - Chest X-ray| Service Date: 1Plain X-ray ribs abnormal| Service Date: 08/08/2019History ofleft knee replacement| Service Date: 2018Total knee arthroplasty| Service Date: 07/18/2018MRI of knee| Service Date: 04/04/2018Date of last PAP test| Service Date: 11/09/2017Date oflast PAP test| Service Date: 11/09/2017X-ray of left knee| Service Date: 10/26/2017Removal| Service Date: 01/30/2017Removal of skin small electric engine technician from subcutaneous tissue of breast| Service Date: 01/30/2017Colonoscopy| Service Date: 11/10/2016Bone density scan| Service Date: 10/04/2016GI Bleeding Scan| Service Date: 09/24/2016Sigmoidoscopy, flexible; diagnostic, including collection of specimen(s) by brushing or washing, when performed (separate procedure)| Service Date: 09/22/2016CT of abdomen and pelvis| Service Date: 09/20/2016Chest x-ray| Service Date: 09/20/2016Date of last PAP test| Service Date: 09/14/2016Mastectomy| Service Date: 08/09/2016MRI of breast| Service Date: 06/30/2016Mammogram| Service Date: 06/30/2016Ultrasound guided biopsy, Left Breast| Service Date: 06/15/2016Unilateral left digital diagnostic mammogram| Service Date: 016Multiple ultrasound guided biopsies left breast| Service Date: 06/15/2016Mammogram| Service Date: 06/14/2016Mammogram| Service Date: 06/07/2016Mammogram| Service Date: 06/04/2014Ventilation-perfusion scan| Service Date: 08/09/2013Chest x-ray| Service Date: 08/09/2013Stress ec hocardiography test interpretation| Service Date: 07/11/2013History of cornea transplant| Service Date: 07/25/1992History of corneal transplant| Service Date: 10/16/1989Rectal prolapse careBlepharoplasty of both eyelids Medications acetaminophen(Tylenol Extra Strength 500 mg/15 mL oral liquid), 500 mg= 15 mL, PO, q6h, PRN, 1 refills amLODIPine(amLODIPine 10 mg oral tablet), 1 tab, PO, Daily fexofenadine(Kimberlee 180 mg oral tablet), 180 mg= 1 tab, PO, Daily fluorometholone ophthalmic(fluorometholone 0.1% ophthalmic suspension), 1 drop, both eyes, qMonWedFri multivitamin with minerals(Viactiv Soft Calcium Chews), 1 shoft chew, PO, Daily omeprazole(omeprazole 40 mg oral delayed release capsule), 40 mg= 1 cap, PO, Daily, 1 refills PARoxetine(PARoxetine 10 mg oral tablet), 1 tab, PO, Daily Allergies morphinerash Social History Smoking Status Never smoked cigarettes Alcohol - Denies Alcohol Use Employment/School Status:Retired 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 No tattoos and has not been incarcerated. Donated blood regularly until mastectomy in 2015. Sexual Sexually active:Yes Current partners:1 Self described orientation:Straight or heterosexual Substance Abuse - Denies Substance Abuse Tobacco - Denies Tobacco Use Use:Never smoker Family History Cancer: Father and PGF. Glioblastoma: Daughter. Heart disease: Mother. Heart failure: Mother. Malignant tumor of lung: Father. Health Status Family Member(s) Immunizations Vaccine Date Status SARS COVID Vaccine Unspecified 12/08/2023 Recorded RSV Vaccine Unspecified 12/08/2023 Recorded influenza virus vaccine, inactivated 07/18/2023 Given SARS-CoV-2 mRNA (Pfizer 12+) bivalent 07/13/2022 Recorded Comments : 2022-11-24: Historical information-source unspecified influenza virus vaccine, inactivated 07/04/2022 Given SARS-CoV-2 (COVID-19) mRNA-1273 vaccine 01/20/2022 Recorded Comments : 2022-11-24: Historical information-source unspecified SARS-CoV-2 (COVID-19) mRNA-1273 vaccine 08/09/2021 Recorded Comments : 2021-09-22: Historical information-source unspecified influenza virus vaccine, inactivated 07/08/2021 Given SARS-CoV-2 (COVID-19) mRNA-1273 vaccine 12/14/2020 Recorded Comments : 2021-07-19: Historical information-source unspecified SARS-CoV-2 (COVID-19) mRNA-1273 vaccine 11/16/2020 Recorded Comments : 2021-07-19: Historical information-source unspecified influenza virus vaccine, inactivated 08/10/2020 Given influenza virus vaccine, inactivated 07/05/2019 Given zoster vaccine live 12/12/2018 Recorded zoster vaccine, inactivated 10/07/2018 Recorded Comments : [facility] influenza virus vaccine, inactivated 08/03/2018 Given pneumococcal 23-valent vaccine 07/16/2017 Recorded influenza virus vaccine, inactivated 06/27/2017 Given influenza virus vaccine, inactivated 07/21/2016 Given influenza virus vaccine, inactivated 09/09/2015 Recorded Comments : 2018-09-26: Historical information-source unspecified pneumococcal 13-valent vaccine 03/25/2015 Given tetanus/diphtheria/pertuss, acel (Tdap) 08/19/2014 Recorded Comments : 2018-09-26: Historical information-source unspecified influenza virus vaccine, H1N1 12/01/2009 Recorded Comments : 2021-07-19: Historical information-source unspecified pneumococcal 7-valent vaccine 08/02/2007 Recorded Comments : 2021-07-19: Historical information-source unspecified Recommendations Health Maintenance Pending(in the next year) OverDue Medicare Annual Wellness Visit due08/09/23and every 1year Due Adult Influenza Vaccine due04/14/24and every 1year Adult Social Determinants of Health Screening due05/10/24Unknown Frequency Shingles Vaccine due05/10/24One-time only Satisfied(in the past 1 year) Satisfied Adult Influenza Vaccine on07/18/23.Satisfied by LEYDA Grant Kim Body Mass Index on05/10/24.Satisfied by FELICITA Jimenez [place] Electronic Signature on File Electronically Reviewed/Signed by: Sussy Remy PA-C Author Signature Dt/Tm:05/10/2024 04:14 PM Department of Family Medicine [facility] Patient Care team information Care Team Personnel Name: SCOTT Xiong Tara Position: Nurse Pract - Family Med Member Role: Lifetime Relationship Address: [address] [place] [address] [place] Name: MD Swati, Kailee Melo Position: Physician - Family Med Member Role: Primary Care Provider Address: [address] [facility] [address] [place] [address] [place] Name: MD Magi, Huong Melo Position: Physician - Surgery Oncology Member Role: Lifetime Relationship Address: [address] [facility] [address] [place] [address] Care Team Related Persons Name: MARLENY ELLSWORTH"
--- OUTSIDE RECORDS SUMMARY | 2024-06-09 06:30 | External Medical Summary | Continuity of Care Document ---
Author Name Unknown Organization [place] [id number] [place] [phone] Care Team Providers Care User Experience Architect Name Role Phone Kailee Longoria Primary Care Physician [phone] Encounter [facility] FINNBR [id number] Date(s): 12/12/23 - 12/12/23 [facility] [address] [address] [phone] Encounter Diagnosis Hypercalcemia(Final) - Chronic kidney disease, unspecified(Final) - Discharge Disposition: Home or Self Care Attending Physician: MD Longoria Amy L Allergies, Adverse Reactions, Alerts Substance Reaction Severity Status morphine rash Active Immunizations [...] Kimberlee 180 mg oral tablet Start: 01/31/17 14:09:00, 1 tab, PO, Daily Start Date: 01/31/17 Status: Ordered amLODIPine 10 mg oral tablet Start: 11/02/23 18:40:00 EST, 1 tab, PO, Daily, Disp# 30 tab, Refills: 6, Pharmacy: [id number] Start Date: 11/02/23 Status: Ordered Feosol 200 mg (65 mg elemental iron) oral tablet Start: 11/23/21 14:48:00 EST Start Date: 11/23/21 Status: Ordered fluorometholone 0.1% ophthalmic suspension Start: 04/21/14 15:57:00, 1 drop, both eyes, qMonWedFri Start Date: 04/21/14 Status: Ordered meclizine 12.5 mg oral tablet Start: 05/25/23 15:26:00 EDT, 1 tab, PO, tid, Disp# 21 tab, PRN: as needed for dizziness, Pharmacy:[id number] Start Date: 05/25/23 Status: Ordered omeprazole 40 mg oral delayed release capsule Start: 11/13/23 11:18:00 EST, 1 cap, PO, Daily, Disp# 90 cap, Refills: 1, Pharmacy: [facility] Start Date: 11/13/23 Status: Ordered ondansetron 4 mg oral tablet, disintegrating Start: 10/04/23 12:12:00 EST, See Instructions, Disp# 90 tab, Refills: 0, DISSOLVE 1 TABLET IN MOUTH ONCE DAILY NEEDED FOR NAUSEA AND VOMITING, Pharmacy: [facility] Start Date: 10/04/23 Status: Ordered PARoxetine 10 mg oral tablet Start: 05/28/23 18:36:00 EDT, See Instructions, Disp# 90 tab, Refills: 3, Take 1 tablet by mouth once daily, Pharmacy: [facility] Start Date: 05/28/23 Status: Ordered Tylenol Extra Strength 500 mg/15 mL oral liquid Start: 02/01/17 14:50:00, 15 mL, PO, q6h, Disp# 240 mL, Refills: 1, PRN: as needed for pain Start Date: 02/01/17 Status: Ordered Viactiv Soft Calcium Chews Start: 07/19/21 13:25:00 EDT, 1 shoft chew, PO, Daily Start Date: 07/19/21 Status: Ordered Problem List Condition Confirmation Course Effective Dates Status H ealth Status Informant Acquired absence of both breasts Confirmed Active [...] fracture of rib Confirmed Active History of breast cancer in [...] Removal 9 01/30/17 Completed Removal of skin rn complex care fro m subcutaneous tissue of breast 01/30/17 Co mpleted Colonoscopy 10, 11, 12 11/10/16 Co mpleted Bone density scan 10/04/16 Complet ed GI Bleeding Scan 13 09/24/16 Compl eted Sigmoidoscopy, flexible; oprtillo gnostic, including collection of specimen(s) by brushing [...] other evidence of acute cardiopulmonary diease. 5[facility] Left knee 61. Marked chondrosis of [...] 3 cm bx, left colon extensive diverticulosis 11path reviewed and adenomas as above, the rectum path c/w rectal prolapse per path report. 123 tubular adenomas, rectal inflammation 13[facility] Impression: 1. Normal study. No evidence for GI bleeding focus 14[facility] Impression: diverticulosis in the recto-sigmoid colon an [...] case was reviewed as an intradeptmentalconsultation. 16[facility] Impression: 1. Negative chest 171. No evidence [...] R; linear atelectasis of R lung 22[facility] Impression: Ultrasound guided biopsy 1. Status post ultrasound guided core biopsy in the 12:00 and 2:30 axes of the left breast, with biopsy markers placed at each site 23Please refer to ther eport from left breast ultrasound guided core biopsy performed at the same time for full detail. 24[facility] Impression: Post procedure imaging for [...] of 02/17/17 Results Laboratory List Name Date Calcium Level (CALCIUM) 12/12/23 Creatinine Level (CREAT W/GFR (EST.)) Parathyroid Hormone, Intact (PTH, INTACT ) 12/12/23 Most recent to oldest [Reference Range]: 1 eGFR CKD-EPI [>60 mL/min/1.73 m2] 41 mL/ min/1.73 m2 *LOW* (12/12/23 3:04 PM) Estimated CrCl 24.84 mL/min (12/12/23 8:19 PM) Ca [8.4-10.2 mg/dL] 10.4 mg/dL *HI* (12/12/23 3:04 PM) Cret [0.60-1.00 mg/dL] 1.25 mg/dL *HI* (12/12/23 3:04 PM) PTH Intact [15.0-65.0 pg/mL] 25.0 pg/mL (12/12/23 3:04 PM) Social History Social History Type Response Smoking Status Never smoked cigaret beto Sex Female Patient Care team information Care Team Personnel Name: SCOTT Xiong Tara Position: Nurse Pract - Family Med Member Role: Lifetime Relationship Address: Address: [address] [place] [id number] [place] Name: MD Swati, Kailee Melo Position: Physician - Family Med Member Role: Primary Care Provider Address: Address: [address] [place] [id number] Care Team Related Persons Name: MARLENY ELLSWORTH Address: [place] Address: home [address] [place], [place] [id number]
--- OUTSIDE RECORDS SUMMARY | 2024-06-09 06:30 | External Medical Summary | Continuity of Care Document ---
Author Name Unknown Organization [facility] Address [address] [place], [place] [id number] Care Team Providers Care Buncher Operator Name Role Phone Kailee Longoria Primary Care Physician [phone] Encounter [facility] [id number] Date(s): 03/13/24 - 03/13/24 [facility] [address] [place] [address] [phone] Encounter Diagnosis Abnormal weight loss(Discharge Diagnosis) - 03/13/24 IFG (impaired fasting glucose)(Discharge Diagnosis) - 03/13/24 Major depressive disorder with single episode, in full remission(Discharge Diagnosis) - 03/13/24 Essential hypertension(Discharge Diagnosis) - 03/13/24 MENDENHALL (dyspnea on exertion)(Discharge Diagnosis) - 03/12/24 History of hypercalcemia(Discharge Diagnosis) - 03/13/24 Chronic kidney disease (CKD)(Discharge Diagnosis) - 03/13/24 Discharge Disposition: Home or Self Care Attending Physician: MD Longoria Amy L Allergies, Adverse Reactions, Alerts Substance Criticality Severity Reaction Reaction Severity Status morphine rash Active Assessment and Plan Extracted from: Title:Office Visit Note Author:MD Longoria Amy L D ate:03/13/24 1.Abnormal weight loss STATUS: Chronic stable. DATA: weightsreviewed. GOAL: avoidfurtherweight loss. PLAN: we discussedthatone of ourgoals inusingPaxil, wastopromoteweightgain. However, on furtherdiscussion, she is clearthatwouldneverwantherweight togo anyhigher than 128, forunclearreasons. Will follow weightwithre-startingpaxil.Cont current monitoring. 2.MENDENHALL (dyspnea on exertion) Resolved. 3.IFG (impaired fasting glucose) Status : new finding, controlled. Data : dietreviewed. Goal : maintain normal blood sugars. Plan : recheck A1C, thoughwouldnot adviseoverlystrictcontrol, duetoweight loss. 4.Major depressive disorder with single episode, in full remission Status : chronic, worse. Data : hx reviewed. Goal : achieve& maintain remission. Plan : discussed rationaleforuseofPaxil &shedoes agreetorestartit.She willrestartatpreviousdose& will recheck in2 months. 5.Essential hypertension Status : chronic, controlled. Data : BP readings reviewed. Goal : maintain normal BP. Plan : continue current BP med. Recheckrenal function. 6.Chronic kidney disease (CKD) STATUS: Chronic, renal function fluctuates somewhat. DATA: hx & labs reviewed. GOAL: Maintain renal stability. PLAN: Cont to encourage drinking fluids, cesia water. Will have her repeat renal function, with drinking water before blood draw. Return [id number] Time:Total time spent with this patient on day of evaluation including chart review, ordering, education and coordination of care elements: 33_ minutes Immunizations Given and Recorded Vaccine Date Status [...] Daily, Disp# 30 tab, Refills: 6, Pharmacy: [id number] Start Date: 11/02/23 Status: Ordered fluorometholone 0.1% ophthalmic suspension Start: 04/21/14 3:57:00 PM EDT, 1 drop, both eyes, qMonWedFri Start Date: 04/21/14 Status: Ordered omeprazole 40 mg oral delayed release capsule Start: 11/13/23 11:18:00 AM EST, 1 cap, PO, Daily, Disp# 90 cap, Refills: 1, Pharmacy: [id number] Start Date: 11/13/23 Status: Ordered PARoxetine 10 mg oral tablet Start: 05/28/23 6:36:00 PM EDT, See Instructions, Disp# 90 tab, Refills: 3, Take 1 tablet by mouth once daily, Pharmacy: [id number] Start Date: 05/28/23 Status: Ordered Tylenol Extra Strength 500 mg/15 mL oral liquid Start: 02/01/17 2:50:00 PM EDT, 15 mL, PO, q6h, Disp# 240 mL, Refills: 1, PRN: as needed for pain Start Date: 02/01/17 Status: Ordered Viactiv Soft Calcium Chews Start: 07/19/21 1:25:00 PM EDT, 1 shoft chew, PO, Daily Start Date: 07/19/21 Status: Ordered Mental Status 03/13/24 Barriers to Learning one year None evide nt Mandatory Health Literacy Documentation Yes Health Literacy Communication Barriers N ever Primary Language Amharic Problem List Condition Confirmation Course Effective Dates [...] Effective Dates Health Status Clinical Service Informant IFG (impaired fasting glucose) Discharge Diagnosis 03/13/24 Non-Specified Major depressive disorder with single episode, in full remission Discharge Diagnosis 03/13/24 Non-Specified Essential hypertension Discharge Diagnosis 03/13/24 Non-Specified MENDENHALL (dyspnea on exertion) Discharge Diagnosis 03/12/24 Non-Specified Abnormal weight loss Discharge Diagnosis 03/13/24 Non-Specified History of hypercalcemia Discharge Diagnosis 03/13/24 Non-Specified Chronic kidney disease (CKD) Discharge Diagnosis 03/13/24 Non-Specified Procedures Procedure Date Related Diagnosis Body [...] Removal 9 01/30/17 Completed Removal of skin automatic clipper fro m subcutaneous tissue of breast 01/30/17 [...] other evidence of acute cardiopulmonary diease. 5[facility] Left knee 61. Marked chondrosis of the [...] c/w rectal prolapse per path report. 13[facility] Impression: 1. Normal study. No evidence for GI bleeding focus 14[facility] Impression: diverticulosis in the recto-sigmoid colon an [...] CMV inclusions is negative. The appearance appears most consistent with ischemia. Please correlate clinically. This case was reviewed as an intradeptmental consultation. 16[facility] Impression: 1. Negative chest 171. No evidence [...] R; linear atelectasis of R lung 22[facility] Impression: Ultrasound guided biopsy 1. Status post ultrasound guided core biopsy in the 12:00 and 2:30 axes of the left breast, with biopsy markers placed at each site 23Please refer to ther eport from left breast ultrasound guided core biopsy performed at the same time for full detail. 24[facility] Impression: Post procedure imaging for marker placement [...] Most recent to oldest [Reference Range]: 1 Patient Weight 55.3 kg (03/13/24 1:49 PM) Heart Rate 70 bpm (03/13/24 1:49 PM) Respiratory Rate 16 br/min (03/13/24 1:49 PM) Blood Pressure 110/60mmHg (03/13/24 1:49 PM) Cuff Pulse Pressure 50 mmHg (03/13/24 1:49 PM) BP Location # 1 Right Arm (03/13/24 1:49 PM) Social History Social History Type Response Smoking Status Never smoked cigaret beto Sex Female FCM Outpt Note * MD Swati, Kailee Melo: PERFORM Event Display: FCM Outpt Note Authored Date: [id number] Chief Complaint follow up, feeling nauseated all the time History of Present Illness * This patient is being followed longitudinally for chronic serious medical problems by Dr. Kailee Longoria. Their most recent visitwith Dr. Longoria:11/13/23 Here for recheckoffollowing concerns : 1) Weight loss - she is nauseated every am,did not realize that she had Zofran, or what it was for. She has very little appetite & then gets full quickly. 2) MENDENHALL - she feels that this is resolved, unless she she goes up several flights of stairs. 3) Fatigue - she is always tired, but often can't get to sleep until 2 or 3 in am. Then she sleeps too late & is tired all day. She quit taking her paxilabout 2 weeks ago & has felt worse since then. 4) Depression - she has felt worse recently. Review of Systems Review of Systems- Constitutional: +fatigue, +weight loss. HEENT: no vision changes, or sinus congestion. Respiratory: no cough, improvedSOB, nowheezing. Cardiac: no chest pain, palpitations or pedal edema. GI: no abdominal pain, + nausea,novomiting or change in bowel habits. : no dysuria. Neurologic: no headaches. Musculoskeletal: No joint pains. Physical Exam Vitals & Measurements HR:70(Monitored) RR:16 BP:110/60 SpO2:96% WT:55.300kg(Dosing) WT:55.3kg PHQ2 Data(Data Documented on:03/13/2024 13:49) Emotional health assessment NEGATIVE PE : Alert, in NAD. HEENT - PERRL. TM's - normal. Nares - clear. Oropharynx - normal. Neck - supple, without thyromegaly or lymphadenopathy. Lungs - clear, with good breath sounds bilaterally. Heart - RRR without murmur. No pedal edema. Abdomen - +BS, soft, NT without HSM or mass. Neuro - alert & oriented, speech & cognition normal. Skin - warm & dry. Psych - affect appropriate. Assessment/Plan 1.Abnormal weight loss STATUS: Chronic stable. DATA: weightsreviewed. GOAL: avoidfurtherweight loss. PLAN: we discussedthatone of ourgoals inusingPaxil, wastopromoteweightgain. However, on furtherdiscussion, she is clearthatwouldneverwantherweight togo anyhigherthan 128, forunclearreasons. Will follow weightwithre-startingpaxil.Cont current monitoring. 2.MENDENHALL (dyspnea on exertion) Resolved. 3.IFG (impaired fasting glucose) Status : new finding, controlled. Data : dietreviewed. Goal : maintain normal blood sugars. Plan : recheck A1C, thoughwouldnot adviseoverlystrictcontrol, duetoweight loss. 4.Major depressive disorder with single episode, in full remission Status : chronic, worse. Data : hx reviewed. Goal : achieve& maintain remission. Plan : discussed rationaleforuseofPaxil &shedoes agreetorestartit.She willrestartatpreviousdose& will recheck in2 months. 5.Essential hypertension Status : chronic, controlled. Data : BP readings reviewed. Goal : maintain normal BP. Plan : continue current BP med. Recheckrenal function. 6.Chronic kidney disease (CKD) STATUS: Chronic, renal function fluctuates somewhat. DATA: hx & labs reviewed. GOAL: Maintain renal stability. PLAN: Cont to encourage drinking fluids, cesia water. Will have her repeat renal function, with drinking water before blood draw. Return [id number] Time:Total time spent with this patient on day of evaluation including chart review, ordering, education and coordination of care elements: 33_ minutes Problem List/Past Medical History Ongoing Abnormal weight [...] examination Procedure/Surgical History Chest X-ray| Service Date: 07/18/2023one density scan| Service Date: 12/22/2020XR - Chest X-ray| Service Date: 1Plain X-ray ribs abnormal| Service Date: 08/08/2019History ofleft knee replacement| Service Date: 2018Total knee arthroplasty| Service Date: 07/18/2018MRI of knee| Service Date: 04/04/2018Date of last PAP test| Service Date: 11/09/2017Date oflast PAP test| Service Date: 11/09/2017X-ray of left knee| Service Date: 10/26/2017Removal| Service Date: 01/30/2017Removal of skin automatic clipper from subcutaneous tissue of breast| Service Date: [...] 1 refills PARoxetine(PARoxetine 10 mg oral tablet), See Instructions Allergies morphinerash Social History Smoking Status Never smoked cigarettes Alcohol - Denies Alcohol Use Employment/School Status:Retired 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 No tattoos and has not been incarcerated. Donated blood regularly until mastectomy in 2016. Sexual Sexually active:Yes Current partners:1 Self described [...] Recorded Comments : 2021-07-19: Historical information-source unspecified Electronic Signature on File Electronically Reviewed/Signed by: Kailee Longoria MD Author Signature Dt/Tm:03/13/2024 08:27 PM [employer] [facility] [address], [address] [place], [place]. [address] [facility] Patient Care team information Care Team Personnel Name: SCOTT Xiong Tara Position: Nurse Pract - Family Med Member Role: Lifetime Relationship Address: Address: [address] [place] [address] [place] Name: MD Longoria Amy L Position: Physician - Family Med Member Role: Primary Care Provider Address: Address: [address] [place] [address], [place] [address] Care Team Related Persons Name: MARLENY ELLSWORTH Address: [place] Address: home [address] [facility], [place] [id number]"
[2024-06-09 06:37] VITALS: TEMP 97.3
--- NOTE | 2024-06-09 07:35 | Emergency Department Note ---
History of Present Illness General Chief complaint: Fall Stated complaint: FALL, HIT HEAD,NAUSEA Time Seen by Provider: 06/09/24 07:20 Source: patient, family ( who is at the bedside), RN notes reviewed and old records reviewed (12/02/22-[employer] office visit for follow-up) Mode of arrival: ambulatory Limitations: no limitations History of Present Illness This patient comes in after having some jaw and neck pain and nausea. She fell on Monday night when she reached over in the kitchen she just says she did not lose consciousness she hit her left face and head on the floor. She says she had a padded stool for she felt fine at the time and again there was no loss of consciousness she tells me. She was fine for couple days until last night still having jaw pain. She has pain in her posterior head/neck. She was nauseated and maybe a little sweaty. No fever she feels a lot better right now she has a slight headache. She denies any numbness or weakness she did have a hard time walking initially from the car as she felt dizzy but denies dizzy now. No chest pain or shortness of breath she has had some epigastric discomfort .she denies that she had any chest or abdominal trauma. she is on no blood thinners. Home Medications Medication Instructions Recorded Confirmed Type denosumab 60 mg/mL subcutaneous 60 mg subcut UD 04/11/19 06/09/24 History syringe (Prolia) fluorometholone 0.1 % eye 1 drp OPB [id number] 04/11/19 06/09/24 History drops,suspension amlodipine 10 mg tablet 10 mg PO QAM 11/25/22 06/09/24 History ondansetron 4 mg disintegrating 4 mg translingual DAILY PRN Nausea 11/25/22 06/09/24 History tablet paroxetine HCl 10 mg tablet 10 mg PO DAILY 11/25/22 06/09/24 History omeprazole 40 mg capsule,delayed 40 mg PO DAILY 06/09/24 06/09/24 History release Allergies Allergy/AdvReac Type Severity Reaction Status Date / Time morphine Allergy Unknown RASH Verified 06/09/24 09:47 terazosin Allergy Verified 06/09/24 09:55 Past Med/Surg History Problem List Elevated troponin (Acute) Non-STEMI (non-ST elevated myocardial infarction) (Acute) Jaw pain (Acute) Headache (Acute) Fall (Acute) Tick bite (Acute) Rectal bleeding Rectal prolapse (Chronic) Encounter for pre-operative examination Hypertension Osteoarthritis GERD (gastroesophageal reflux disease) controlled Cancer L BREAST, DOUBLE MASTECTOMY - CHEMO (2016) Hx of mastectomy BILATERAL Hx of cornea transplant BL Medical History Limb alert care status LUE Osteoporosis Surgical History Hx of colonoscopy History of left knee replacement H/O cataract removal with insertion of prosthetic lens bilateral Family History Other Family history of diabetes mellitus Denies family history of Ovarian cancer Breast cancer Colorectal cancer Social History Smoking Status: Never smoker Second Hand Exposure: Yes ( USED TO SMOKE); Do You Dip or Chew Tobacco: No; Hx Alcohol Use: No Hx Substance Use: No Preferred Language: Hungarian Communication Ability: Effective Visual Impairment: No Limitations Machine Woodworking Sander Required: No Beliefs That Will Affect Care: None Current Living Situation: Spouse Feels Safe at Home: Yes Assistive Devices: Contacts, Denture - Upper and Denture - Lower Immunizations: Past medical historyhypertension. Denies cardiac disease or diabetes or blood thinner use. She had a mastectomy for breast cancer 8 years ago for which has been in remission Social she does not smoke or drink or use drugs. She is followed by Dr. Krause she is and lives with her who is at the bedside Review of Systems A total of 10 systems reviewed and were otherwise negative Physical Exam Vital Signs Vital Signs - 24 hr 06/09/24 06:30 06/09/24 08:14 06/09/24 08:15 Temperature 36.3 C L Temperature Source Temporal Artery Scan Pulse Rate 124 H 64 Pulse Rate [Right Finger] Pulse Rate from SpO2 Sensor Pulse Rhythm Regular Respiratory Rate 16 Respiratory Effort / Characteristics Non-Labored Respiratory Depth Normal Respiratory Pattern Blood Pressure 101/67 Blood Pressure [Right Arm] Blood Pressure Mean 78 Blood Pressure Mean [Right Arm] Pulse Oximetry 95 98 Oxygen Delivery Method Room Air Room Air Oxygen Flow Rate Sepsis Recent Fever Within 48 Hours No Sepsis New/Unexplained Change in Mental Status No Sepsis Action Taken by Nursing No Action Required Oxygen Flow Rate - Titration Pulse Oximetry Post Tiitration 06/09/24 08:22 06/09/24 08:23 06/09/24 09:22 Temperature Temperature Source Pulse Rate 61 Pulse Rate [Right Finger] 69 Pulse Rate from SpO2 Sensor 61 Pulse Rhythm Respiratory Rate 18 15 Respiratory Effort / Characteristics Non-Labored Respiratory Depth Normal Respiratory Pattern Regular Blood Pressure 142/69 H 139/63 Blood Pressure [Right Arm] 142/69 H Blood Pressure Mean 93 93 Blood Pressure Mean [Right Arm] 93 Pulse Oximetry 94 92 Oxygen Delivery Method Room Air Room Air Oxygen Flow Rate Sepsis Recent Fever Within 48 Hours Sepsis New/Unexplained Change in Mental Status Sepsis Action Taken by Nursing Oxygen Flow Rate - Titration Pulse Oximetry Post Tiitration 06/09/24 10:00 06/09/24 10:23 06/09/24 11:45 Temperature Temperature Source Pulse Rate 65 Pulse Rate [Right Finger] 64 63 Pulse Rate from SpO2 Sensor 65 Pulse Rhythm Respiratory Rate 18 23 15 Respiratory Effort / Characteristics Non-Labored Respiratory Depth Normal Respiratory Pattern Blood Pressure Blood Pressure [Right Arm] 141/75 H Blood Pressure Mean Blood Pressure Mean [Right Arm] 97 Pulse Oximetry 95 94 92 Oxygen Delivery Method Room Air Room Air Room Air Oxygen Flow Rate Sepsis Recent Fever Within 48 Hours Sepsis New/Unexplained Change in Mental Status Sepsis Action Taken by Nursing Oxygen Flow Rate - Titration Pulse Oximetry Post Tiitration 06/09/24 11:47 Temperature Temperature Source Pulse Rate Pulse Rate [Right Finger] Pulse Rate from SpO2 Sensor Pulse Rhythm Respiratory Rate Respiratory Effort / Characteristics Respiratory Depth Respiratory Pattern Blood Pressure Blood Pressure [Right Arm] Blood Pressure Mean Blood Pressure Mean [Right Arm] Pulse Oximetry 88 L Oxygen Delivery Method Nasal Cannula Oxygen Flow Rate 0 Sepsis Recent Fever Within 48 Hours Sepsis New/Unexplained Change in Mental Status Sepsis Action Taken by Nursing Oxygen Flow Rate - Titration 2 Pulse Oximetry Post Tiitration 94 General: Well developed well nourished older female who appears in no acute distress, breathing comfortably on room air. Normal speech HEENT: Normal cephalic atraumatic. Pupils are equal round and reactive to light. Sclera anicteric. Extraocular movements are intact. Oropharynx is pink with moist mucous membranes. No swelling of the mouth lips or tongue. She is able to open and close her jaw without difficulty but the TMJ on both sides feels some crepitus. Neck: Supple with a midline trachea. No meningeal signs or stiffness, no JVD or bruits. No Stridor. Chest: Clear to auscultation bilaterally. No wheezes or rhonchi. No increased work of breathing. Heart: Regular rate and rhythm without murmurs or gallops. Abdomen: Soft nontender, nondistended without rebound guarding or rigidity. Extremities: No cyanosis clubbing trace bilateral lower extremity. No calf tenderness or assymetry Spine/Back. Non tender to palpation. No CVA tenderness Skin: Good turgor without rashes. Neurologic exam: Cranial nerves two through 12 are intact. Motor and sensation are intact and symmetrical throughout. Course Administered Medications Discontinued Medications Aspirin (Aspirin 81 Mg Chew) 324 mg PO NOW STA Stop: 06/09/24 09:10 Last Admin: 06/09/24 09:20 Dose: 324 mg Documented By: TAISHA Medical Decision Making Differential Diagnosis Traumatic injuries, head injury, cervical spine injury, facial trauma, acute coronary syndrome, arrhythmia, electrolyte or metabolic abnormality, anemia Medical Records Attestation: I reviewed the patient's medical records. Home Medications Current Medication List: was personally reviewed by me Laboratory Data Attestation: I reviewed the patient's lab results. 06/09/24 08:00 06/09/24 08:00 Lab Results 06/09/24 06/09/24 Range/Units 08:00 09:49 WBC 6.54 (4.8-10.8) K/ul RBC 3.94 L (4.20-5.40) M/uL Hgb 11.7 L (12.0-16.0) g/dl Hct 36.4 L (37.0-47.0) % MCV 92.4 (80.0-100.0) fL MCH 29.7 (25.0-34.0) pg MCHC 32.1 (32.0-36.0) g/dL RDW Std Deviation 44.2 (36.4-46.3) fL RDW Coeff of Manfred 13.1 (11.5-14.5) % Plt Count 234 (130-400) K/uL MPV 10.1 (9.4-12.4) fL Immature Gran % (Auto) 0.5 % Neut % (Auto) 62.5 % Lymph % (Auto) 23.4 % [place] % (Auto) 8.6 % Eos % (Auto) 4.1 % Baso % (Auto) 0.9 % Neut # (Auto) 4.09 (1.40-6.50) K/uL Lymph # (Auto) 1.53 (1.20-3.40) K/uL [place] # (Auto) 0.56 (0.11-0.59) K/uL Eos # (Auto) 0.27 (0.00-0.50) K/uL Baso # (Auto) 0.06 (0.00-0.20) K/uL Immature Gran # (Auto) 0.03 (0.01-0.20) K/uL APTT 26 (21-31) Seconds PTT Ratio 1.0 Sodium 139 (136-145) mmol/L Potassium 4.0 (3.5-5.1) mmol/L Chloride 103 (98-107) mmol/L Carbon Dioxide 27 (21-32) mmol/L Anion Gap 9 (3-11) BUN 29 H (6-23) mg/dl Creatinine 1.41 H (0.6-1.2) mg/dl Est Cr Clr Drug Dosing 20.8 ml/min Est GFR ( Amer) 38.5 ml/min Est GFR (Non-Af Amer) 33.2 ml/min BUN/Creatinine Ratio 20.6 H (10-20) Glucose 96 (70-99(Fasting)) mg/dl Calcium 9.7 (8.6-10.3) mg/dl Total Bilirubin 0.4 (0.2-1.0) mg/dl AST 16 (13-39) U/L ALT 9 (7-52) U/L Alkaline Phosphatase 80 (34-104) U/L Troponin I High Sens 169.1 H* 409.1 H* D (0-14) pg/ml Total Protein 6.8 (6.0-8.3) gm/dl Albumin 4.1 (3.4-5.0) gm/dl Globulin 2.7 (2.5-4.0) gm/dl Albumin/Globulin Ratio 1.5 (0.9-2) Lipase 7 L (11-82) U/L Imaging Data Attestation: I personally reviewed and interpreted this imaging study as follows: My Impression: Chest x-rayno acute infiltrate, failure, pneumothorax seen Head CTno hemorrhage or mass effect seen Radiologist's Impression: Cervical Spine CT 06/09/24 07:[address] DOSE: 1262.87 mGy.cm HISTORY: fall TECHNIQUE: Multiaxial CT images of the cervical spine were performed and reformatted in the sagittal and coronal plane without the use of contrast. A dose lowering technique was utilized adhering to the principles of ALARA. COMPARISON: None. FINDINGS: No fractures. No subluxation. Prevertebral soft tissues and the C1-C2 interval are intact. No pneumothorax. Moderate to severe facet degenerative changes are noted. Mild disc space narrowing at C6-C7. IMPRESSION: No fractures within the cervical spine. ACT 112: Negative or not required by law. Electronically signed by: Julian Santiago M.D. 06/09/2024 9:02 AM Chest X-Ray 06/09/24 07:30 XR chest 1V portable HISTORY: Chest pain, nonspecific COMPARISON: Chest 07/18/2023. FINDINGS: No pneumothorax. No pleural effusions. The heart is mildly enlarged. No focal lung consolidations to suggest a pneumonia. No evidence for pulmonary edema. Surgical clips within the right chest wall again noted. No acute fractures. A few bibasilar linear densities favor subsegmental atelectasis are scarring. IMPRESSION: No acute process. ACT 112: Negative or not required by law. Electronically signed by: Julian Santiago M.D. 06/09/2024 8:[address] 06/09/24 07:[address] DOSE: HISTORY: fall TECHNIQUE: Multiaxial CT images of the maxillofacial region were performed and reformatted in the coronal plane without the use of contrast. A dose lowering technique was utilized adhering to the principles of ALARA. COMPARISON: None. FINDINGS: The visualized cervical spine, skull base, pterygoid plates, nasal bones, lamina papyracea, orbital floors, mandible, and zygomatic arches are intact. No fractures. The orbits are unremarkable. IMPRESSION: No fractures within the maxillofacial region. ACT 112: Negative or not required by law. Electronically signed by: Julian Santiago M.D. 06/09/2024 9:[address] 06/09/24 07:[address] DOSE: HISTORY: fall TECHNIQUE: Multiaxial CT images of the head were performed without the use of intravenous contrast. Automated exposure control was utilized for this study. A dose lowering technique was utilized adhering to the principles of ALARA. Comparison: Head CT 11/25/2022. Findings: The paranasal sinuses and mastoid air cells are clear. The calvarium and skull base are intact. There is no mass, hematoma, midline shift, acute infarct. White matter hypodensity is nonspecific but suggestive of microvascular ischemic change. The ventricles and sulci demonstrate mild age-related involutional changes. Impression: No acute intracranial abnormality. Atrophy and microvascular ischemic changes. ACT 112: Negative or not required by law. Electronically signed by: Julian Santiago M.D. 06/09/2024 8:57 AM ECG Data Attestation: I personally reviewed and interpreted this ECG as follows: Indication: + abdominal pain and + weakness Rate (beats per minute): 60 Rhythm: + normal sinus ECG Intervals/blocks: + Normal QRS and + Normal ND ECG Syl[place]: + Normal ECG ST segments: + Normal ST segments ECG Findings: no PACs or no PVCs Comparison ECG Date: from (11/25/22) Change: the following changes noted (Questionable hyperacute T waves in V2 compared to old. No reciprocal changes.) Additional Comments: EKG #2: Normal sinus rhythm rate of 65 no acute ischemic changes or ectopy. No change compared to EKG #1. T waves in V2 look the same. MDM Narrative This patient comes in described above she fell about 3 days ago. She had no loss of consciousness at the time. She had jaw pain tonight and nausea and a mild headache/neck pain. She is on no blood thinners I did order CAT scans of the head face and neck to evaluate for trauma however given her history and age, I often also concern this could be unrelated to the fall and potentially cardiac disease so I did order cardiac workup as well. She was placed on a monitoring coordinator room B5. IV access was established. EKG and chest x-ray were obtained. She was reassessed frequently. EKG does not show any definite ischemic changes the T wave in V2 may look slightly hyperacute compared to old I did a second EKG while she was in the ER there is no change compared to the first. Her troponin was significantly elevated and is trending upward on a second troponin as well. She denies any chest pain and is asymptomatic at present. She has no evidence to suggest STEMI at this point. CAT scans of her head neck and face were unremarkable. Chest x-ray does not show congestive heart failure, pneumonia, pneumothorax. She was given aspirin 324 mg chewable she will need to be admitted for further treatment and evaluation and cardiac evaluation of concern she has had a non-STEMI at this point. I did consult and discussed the case with the [facility] hospitalist who saw him in the ER for these measures. Continuous monitoring coordinator: Orders placed in EMR for continuous cardiac monitoring call upon my evaluation she was noted to be in normal sinus rhythm rate of 65 Impression & Plan Non-STEMI (non-ST elevated myocardial infarction), Fall, Headache, Jaw pain, Elevated troponin Discharge Plan Visit Data Chief Complaint: Fall Stated Complaint: FALL, HIT HEAD,NAUSEA ED Provider: Hesham Magdaleno Discharge Problem: Non-STEMI (non-ST elevated myocardial infarction), Fall, Headache, Jaw pain, Elevated troponin Patient Disposition: Admitted As Inpatient Discharge Instructions Interventions: ED Discharge Assessment Last Done: 06/09/24 13:26 Discharge Problem: Fall Qualifiers: Encounter type: initial encounter Qualified Code(s): W19.XXXA - Unspecified fall, initial encounter Headache Qualifiers: Headache type: unspecified Headache chronicity pattern: acute headache I ntractability: not intractable Qualified Code(s): R51.9 - Headache, unspecified
--- NOTE | 2024-06-09 08:09 | XRay Report ---
XR chest 1V portable HISTORY: Chest pain, nonspecific COMPARISON: Chest 07/18/2023. FINDINGS: No pneumothorax. No pleural effusions. The heart is mildly enlarged. No focal lung consolid ations to suggest a pneumonia. No evidence for pulmonary edema. Surgical clips within the right chest wall again noted. No acute fractures. A few bibasilar linear densities favor subsegmental atelectasi s are scarring. IMPRESSION: No acute process. ACT 112: Negative or not required by law. Electronically signed by: Julian Santiago M.D. 06/09/2024 8:08 AM
[2024-06-09 08:20] LABS: Basophils # (auto) 0.06 K/uL (0.00-0.20); Basophils % (auto) 0.9 %; Eosinophils # (auto) 0.27 K/uL (0.00-0.50); Eosinophils % (auto) 4.1 %; Hematocrit (blood only) 36.4 % (37.0-47.0); Hemoglobin 11.7 g/dl (12.0-16.0); Immature Granulocytes # (auto) 0.03 K/uL (0.01-0.20); Immature Granulocytes % (auto) 0.5 %; Lymphocytes # (auto) 1.53 K/uL (1.20-3.40); Lymphocytes % (auto) 23.4 %; Mean Corpuscular Hemoglobin 29.7 pg (25.0-34.0); Mean Corpuscular Hgb Conc 32.1 g/dL (32.0-36.0); Mean Corpuscular Volume 92.4 fL (80.0-100.0); Mean Platelet Volume 10.1 fL (9.4-12.4); Monocytes # (auto) 0.56 K/uL (0.11-0.59); Monocytes % (auto) 8.6 %; Neutrophils # (auto) 4.09 K/uL (1.40-6.50); Neutrophils % (auto) 62.5 %; Platelet Count 234 K/uL (130-400); RDW Coefficient of Variation 13.1 % (11.5-14.5); RDW Standard Deviation 44.2 fL (36.4-46.3); Red Blood Count 3.94 M/uL (4.20-5.40); White Blood Count 6.54 K/ul (4.8-10.8)
[2024-06-09 08:33] LABS: Partial Thromboplastin Time 26 Seconds (21-31)
[2024-06-09 08:41] LABS: Albumin Globulin Ratio 1.5 (0.9-2); Albumin Level 4.1 gm/dl (3.4-5.0); BUN Creatinine Ratio 20.6 (10-20); Bilirubin,Total 0.4 mg/dl (0.2-1.0); Calcium 9.7 mg/dl (8.6-10.3); Creatinine Clr Calc Pharmacy 20.8 ml/min; Est GFR (African American) 38.5 ml/min; Est GFR (Non-African American) 33.2 ml/min; Globulin 2.7 gm/dl (2.5-4.0); Total Protein 6.8 gm/dl (6.0-8.3)
[2024-06-09 08:58] LABS: Troponin I High Sensitivity 169.1 pg/ml (0-14)
--- NOTE | 2024-06-09 08:59 | CT Scan Report ---
HEAD CT NONCONTRAST CT DOSE: HISTORY: fall TECHNIQUE: Multiaxial CT images of the head were performed without the use of intravenous contrast. A utomated exposure control was utilized for this study. A dose lowering technique was utilized adheri ng to the principles of ALARA. Comparison: Head CT 11/25/2022. Findings: The paranasal sinuses and mastoid air cells are clear. The calvarium and skull base are int act. There is no mass, hematoma, midline shift, acute infarct. White matter hypodensity is nonspecifi c but suggestive of microvascular ischemic change. The ventricles and sulci demonstrate mild age-rela sadie involutional changes. Impression: No acute intracranial abnormality. Atrophy and microvascular ischemic changes. ACT 112: Negative or not required by law. Electronically signed by: Julian Santiago M.D. 06/09/2024 8:57 AM
--- NOTE | 2024-06-09 09:05 | CT Scan Report ---
CERVICAL SPINE CT CT DOSE: 1262.87 mGy.cm HISTORY: fall TECHNIQUE: Multiaxial CT images of the cervical spine were performed and reformatted in the sagittal and coronal plane without the use of contrast. A dose lowering technique was utilized adhering to th e principles of ALARA. COMPARISON: None. FINDINGS: No fractures. No subluxation. Prevertebral soft tissues and the C1-C2 interval are intact. No pneumothorax. Moderate to severe facet degenerative changes are noted. Mild disc space narrowing a t C6-C7. IMPRESSION: No fractures within the cervical spine. ACT 112: Negative or not required by law. Electronically signed by: Julian Santiago M.D. 06/09/2024 9:02 AM
--- NOTE | 2024-06-09 09:06 | CT Scan Report ---
MAXILLOFACIAL CT CT DOSE: HISTORY: fall TECHNIQUE: Multiaxial CT images of the maxillofacial region were performed and reformatted in the cor onal plane without the use of contrast. A dose lowering technique was utilized adhering to the princ iples of FELICIA. COMPARISON: None. FINDINGS: The visualized cervical spine, skull base, pterygoid plates, nasal bones, lamina papyracea, orbital floors, mandible, and zygomatic arches are intact. No fractures. The orbits are unremarkable . IMPRESSION: No fractures within the maxillofacial region. ACT 112: Negative or not required by law. Electronically signed by: Julian Santiago M.D. 06/09/2024 9:05 AM
[2024-06-09] MEDS: ASPIRIN 81 MG CHEW PO STA (09:20)
--- NOTE | 2024-06-09 10:15 | History & Physical Report ---
Date of Service June 09, 2024 Assessment & Plan (1) Elevated troponin: (2) Jaw pain: (3) Fall: (4) GERALD (acute kidney injury): Plan Patient is a 88 yo F w/ a PMHx of HTN, osteoarthritis, GERD, Hx of breast cancer (s/p double mastectomy), rectal prolapse, who presents today 4 days after a fall with jaw pain, tachycardia, palpitations, and subsequently found to have elevated troponins. 1) Elevated troponins/Jaw pain - HSTrop, 698 <-- 409 <-- 169; Serial HSTrops ordered, starting 13:00, x3, q6hrs - EKG: NSR, normal EKG x 2 (1.5 hrs apart), patient not endorsing chest pain, does endorse b/l jaw pain - consider another EKG, heparin drip if patient begins to feel increased chest pain 2) Hypoxia/Fatigue - O2Sat, 96 on 2L O2, nasal cannula (no O2 requirement at baseline) deconditioning vs. CHF vs. cardiac valvular disease - Last Echo (Nov, 2022): 1) Severely calcified mitral valve annulus extending submitral apparatus w/ mild mitral valve stenosis 2) Mild pulmonary regurgitation 3) Kcqu-ri-rtsofsll tricuspid regurgitation 4) EF > 75%, Grade I diastolic dysfunction of LV 3) Fall/Jaw pain patient fell when reaching to get something out of cupboard, hitting face/left jaw on padded chair, then again on floor on way down; not chronically falling/no recurrent falls cervical facet syndrome vs. progressive valvular disease vs. - CT-Head impression: No acute intracranial abnormality. Atrophy and microvascular ischemic changes - CT-Face impression: No fractures within the maxillofacial region. - Cervical spine CT: Moderate to severe facet degenerative changes are noted. Mild disc space narrowing at C6-C7. No fractures w/in cervical spine. 4) GERALD - Cr, 1.4 (on admission) (baseline, 0.95 - 1.2) - BUN/Cr, 20.6; likely pre-renal Code status: Full code DVT Prophylaxis: SCD's (to the knee) Disposition: Med-Surg Tele FENGI: Reg Diet History of Present Illness Chief Complaint: elevated troponins, jaw pain (w/out CP), palpitations Primary Care Provider: Kailee Longoria MD The patient was reaching up to get something in a cupboard and then fell and hit a padded stool on her way down on her left side and then hit the ground again with her left side. The patient went to bed that night (it was Mon). She was concerned on Monday night because she felt like her pulse was elevated. The patient does not endorse a headache at all, no residual jaw pain, no shortness of breath, no chest pain. Patient says that shes' never really fallen before, no recent Hx of recurrent falls. Although she doesn't remember hitting her l. ankle during the fall she has noticed some pain w/ palpation over the medial malleolus during her hospital stay. Patient has noticed that recently she has needed to use the furniture to help her walk, especially on turns, when walking around the house but hasn't necessarily felt more fatigued than normal, although she does not get regular exercise when with her . Allergies Allergy/AdvReac Type Severity Reaction Status Date / Time morphine Allergy Unknown RASH Verified 06/09/24 09:47 terazosin Allergy Verified 06/09/24 09:55 Home Medications Medication Instructions Recorded Confirmed Type denosumab 60 mg/mL subcutaneous 60 mg subcut UD 04/11/19 06/09/24 History syringe (Prolia) fluorometholone 0.1 % eye 1 drp OPB 3XWK 04/11/19 06/09/24 History drops,suspension amlodipine 10 mg tablet 10 mg PO QAM 11/25/22 06/09/24 History ondansetron 4 mg disintegrating 4 mg translingual DAILY PRN Nausea 11/25/22 06/09/24 History tablet paroxetine HCl 10 mg tablet 10 mg PO DAILY 11/25/22 06/09/24 History omeprazole 40 mg capsule,delayed 40 mg PO DAILY 06/09/24 06/09/24 History release Past Med/Surg History Problem List GERALD (acute kidney injury) Elevated troponin (Acute) Non-STEMI (non-ST elevated myocardial infarction) (Acute) Jaw pain (Acute) Headache (Acute) Fall (Acute) Tick bite (Acute) Rectal bleeding Rectal prolapse (Chronic) Encounter for pre-operative examination Hypertension Osteoarthritis GERD (gastroesophageal reflux disease) controlled Cancer L BREAST, DOUBLE MASTECTOMY - CHEMO (2015) Hx of mastectomy BILATERAL Hx of cornea transplant BL Medical History Limb alert care status LUE Osteoporosis Surgical History Hx of colonoscopy History of left knee replacement H/O cataract removal with insertion of prosthetic lens bilateral Family History Other Family history of diabetes mellitus Denies family history of Ovarian cancer Breast cancer Colorectal cancer Social History Smoking Status: Never smoker Second Hand Exposure: Yes ( USED TO SMOKE); Do You Dip or Chew Tobacco: No; Hx Alcohol Use: No Hx Substance Use: No Preferred Language: [place]an Communication Ability: Effective Visual Impairment: No Limitations Bit Shaver Required: No Beliefs That Will Affect Care: None Current Living Situation: Spouse Feels Safe at Home: Yes Assistive Devices: Contacts, Denture - Upper and Denture - Lower Review of Systems Constitutional: no fever, no body aches and no weakness Eyes: no worsening vision Respiratory: + cough (intermittent productive cough); no chest congestion, no dyspnea and no hemoptysis Cardiovascular: + palpitations (irregular pulse (radial pulse on Sat night)) and + lightheadedness; no chest pain Gastrointestinal: + nausea and + constipation (may some [address] pellets over last 2 wks); no abdominal pain and no vomiting Genitourinary: no dysuria and no urinary frequency Neurologic: + unsteadiness and + dizziness; no tingl ing, no numbness and no headache(s) Physical Exam Constitutional: WD/WN, vitals as above Respiratory: normal respiratory effort, lungs clear to auscultation Cardiovascular: Rate/Rhythm: regular rate and regular rhythm Heart Sounds: + murmur (murmur hear over the left and right sternal border) Vessels: pos terior tibial pulses present and dorsalis pedis pulses present (bilaterally) Extremities: no calf tenderness Musculoskeletal: Ankle: + joint line tenderness (ankle) (medial aspect of l. ankle); ankle normal to inspection Neurologic: dorsiflexion and plantarflexion strength +5/5 both sides, b/l Psychiatric: A+Ox3, euthymic affect Results & Data Results & Data Vital Signs (Past 12 Hours) Vital Signs Temp Pulse Pulse Resp BP BP Pulse Ox 06/09/24 08:23 61 15 142/69 H 92 06/09/24 08:22 69 18 142/69 H 94 06/09/24 08:15 64 06/09/24 08:14 98 06/09/24 06:30 36.3 C L 124 H 16 101/67 95 O2 Del Method 06/09/24 08:23 Room Air 06/09/24 08:22 Room Air 06/09/24 08:15 06/09/24 08:14 Room Air 06/09/24 06:30 Room Air Diagnostic Findings Cervical Spine CT 06/09/24 07:[address] DOSE: 1262.87 mGy.cm HISTORY: Fall TECHNIQUE: Multiaxial CT images of the cervical spine were performed and reformatted in the sagittal and coronal plane without the use of contrast. A dose lowering technique was utilized adhering to the principles of ALARA. COMPARISON: None. FINDINGS: No fractures. No subluxation. Prevertebral soft tissues and the C1-C2 interval are intact. No pneumothorax. Moderate to severe facet degenerative changes are noted. Mild disc space narrowing at C6-C7. IMPRESSION: No fractures within the cervical spine. ACT 112: Negative or not required by law. Electronically signed by: Julian Santiago M.D. 06/09/2024 9:02 AM Chest X-Ray 06/09/24 07:30 XR chest 1V portable HISTORY: Chest pain, nonspecific COMPARISON: Chest 07/18/2023. FINDINGS: No pneumothorax. No pleural effusions. The heart is mildly enlarged. No focal lung consolidations to suggest a pneumonia. No evidence for pulmonary edema. Surgical clips within the right chest wall again noted. No acute fractures. A few bibasilar linear densities favor subsegmental atelectasis are scarring. IMPRESSION: No acute process. ACT 112: Negative or not required by law. Electronically signed by: Julian Santiago M.D. 06/09/2024 8:[address] 06/09/24 07:[address] DOSE: HISTORY: fall TECHNIQUE: Multiaxial CT images of the maxillofacial region were performed and reformatted in the coronal plane without the use of contrast. A dose lowering technique was utilized adhering to the principles of ALARA. COMPARISON: None. FINDINGS: The visualized cervical spine, skull base, pterygoid plates, nasal bones, lamina papyracea, orbital floors, mandible, and zygomatic arches are intact. No fractures. The orbits are unremarkable. IMPRESSION: No fractures within the maxillofacial region. ACT 112: Negative or not required by law. Electronically signed by: Julian Santiago M.D. 06/09/2024 9:[address] 06/09/24 07:[address] DOSE: HISTORY: fall TECHNIQUE: Multiaxial CT images of the head were performed without the use of intravenous contrast. Automated exposure control was utilized for this study. A dose lowering technique was utilized adhering to the principles of ALARA. Comparison: Head CT 11/25/2022. Findings: The paranasal sinuses and mastoid air cells are clear. The calvarium and skull base are intact. There is no mass, hematoma, midline shift, acute infarct. White matter hypodensity is nonspecific but suggestive of microvascular ischemic change. The ventricles and sulci demonstrate mild age-related involutional changes. Impression: No acute intracranial abnormality. Atrophy and microvascular ischemic changes. ACT 112: Negative or not required by law. Electronically signed by: Julian Santiago M.D. 06/09/2024 8:57 AM Supervising Physician Co-Signing Physician Notes I personally examined the patient and verified all johnson points of history and exam, discussed case, and agree with decision making with Dr Gary Feeling okay now. Notes that she did have a little bit of jaw pain that woke her from sleep, followed by some indigestion and some chills. Again feels fine now. No exertional intolerance that she relates, resident physician reviewed office notes she does note fatigue and several office visits. Does not remember ever having a heart cath. Vitals noted, in general she is awake and alert pleasant no distress. HEENT normocephalic atraumatic mucous membranes moist. Breathing unlabored no accessory muscle use good effort. Skin without rashes pallor or icterus. Neuro without focal deficits. EKG without acute changes. Troponins noted. 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 no ongoing symptoms; no acute EKG changes - no need for acute intervention currently. trend troponin, await echo. doubt fall had anything to do with current presentation given troponin trend. asa. consider escalated med management after further w/u. elevated cr - ?recent baseline. could easily be GERALD from dehydration, however. DVT proph - ambulation for now, add pharmacologic if stay becomes prolonged (3) Fall Encounter type: initial encounter Qualified Code(s): W19.XXXA - Unspecified fall, initial encounter
[2024-06-09] MEDS ORDERED: ACETAMINOPHEN 325 MG TAB PO PRN (13:26)
[2024-06-09] MEDS ORDERED: MELATONIN 3 MG TAB PO PRN (13:26)
[2024-06-09] MEDS ORDERED: POLYETHYLENE (MIRALAX) 17 GM PACK PO PRN (13:26)
--- NOTE | 2024-06-09 17:28 | Billing Data ---
Date of Service June 09, 2024 Coding Level of Care Code 54490 INT INP/OBS CARE
[2024-06-10] MEDS: ONDANSETRON 4 MG OD TAB PO PRN (06:16)
[2024-06-10 07:50] LABS: Troponin I High Sensitivity 424.3 pg/ml (0-14)
--- NOTE | 2024-06-10 08:20 | Discharge Summary ---
Date of Service June 10, 2024 Admission HPI Per Admitting Provider The patient was reaching up to get something in a cupboard and then fell and hit a padded stool on her way down on her left side and then hit the ground again with her left side. The patient went to bed that night (it was Mon). She was concerned on Monday night because she felt like her pulse was elevated. The patient does not endorse a headache at all, no residual jaw pain, no shortness of breath, no chest pain. Patient says that shes' never really fallen before, no recent Hx of recurrent falls. Although she doesn't remember hitting her l. ankle during the fall she has noticed some pain w/ palpation over the medial malleolus during her hospital stay. Patient has noticed that recently she has needed to use the furniture to help her walk, especially on turns, when walking around the house but hasn't necessarily felt more fatigued than normal, although she does not get regular exercise when with her . This morning the patient had recurrent nausea but did not vomit. Still doesn't describe any of her pain as chest pain. Admission Exam Per Admitting Provider Constitutional: WD/WN, vitals as above Respiratory: normal respiratory effort, lungs clear to auscultation Cardiovascular: Rate/Rhythm: regular rate and regular rhythm Heart Sounds: + murmur (murmur hear over the left and right sternal border) Vessels: posterior tibial pulses present and dorsalis pedis pulses present (bilaterally) Extremities: no calf tenderness Musculoskeletal: Ankle: + joint line tenderness (ankle) (medial aspect of l. ankle); ankle normal to inspection Neurologic: dorsiflexion and plantarflexion strength +5/5 both sides, b/l Psychiatric: A+Ox3, euthymic affect Principal Diagnosis Elevated troponins, valvular heart disease Discharge Exam Constitutional WD/WN, vitals as above Respiratory normal respiratory effort, lungs clear to auscultation Cardiovascular Rate/Rhythm: regular rate and regular rhythm Heart Sounds: + murmur (murmur hear over the left and right sternal border) Vessels: posterior tibial pulses present and dorsalis pedis pulses present (bilaterally) Extremities: no calf tenderness Musculoskeletal Ankle: + joint line tenderness (ankle) (medial aspect of l. ankle); ankle normal to inspection Psychiatric A+Ox3, euthymic affect Discharge Data Allergies Allergy/AdvReac Type Severity Reaction Status Date / Time morphine Allergy Unknown RASH Verified 06/09/24 09:47 terazosin Allergy Verified 06/09/24 09:55 Ordered Studies 06/09/24 07:30 CT cervical spine wo con Stat CT facial bones wo con Stat CT head/brain wo con Stat Hospital Course (1) Elevated troponin: (2) Jaw pain: (3) Fall: (4) GERALD (acute kidney injury): Plan Patient is a 88 yo F w/ a PMHx of HTN, osteoarthritis, GERD, Hx of breast cancer (s/p double mastectomy), rectal prolapse, who presents today 4 days after a fall with jaw pain, tachycardia, palpitations, and subsequently found to have elevated troponins. 1) Elevated troponins/Jaw pain/Angina/(minor)NSTEMI - HSTrop, 424 <-- 698 <-- 409 <-- 169; Serial HSTrops ordered, downtrended eventually - EKG: NSR, normal EKG x 2 (1.5 hrs apart), patient not endorsing chest pain, does endorse b/l jaw pain - episode concerning for acute coronary syndrome, angina - lipid panel ordered: LDL, 121 TChol, 183 HDL, 52 TG, 50 - patient discharged on: aspirin, 81 mg, PO, daily atorvastatin, 40 mg, PO, QHS lisinopril, 10 mg, PO, daily 2) Hypoxia/Fatigue - O2Sat, 96 on 2L O2, nasal cannula (no O2 requirement at baseline) deconditioning vs. CHF vs. cardiac valvular disease - Last Echo (Nov, 2022): 1) Severely calcified mitral valve annulus extending submitral apparatus w/ mild mitral valve stenosis 2) Mild pulmonary regurgitation 3) Trry-ga-dwtihlca tricuspid regurgitation 4) EF > 75%, Grade I diastolic dysfunction of LV - Repeat Echo (06/10): Similar findings as above w/ EF > 70%, mtwiisxo-uc-jmhrlj mitral annular calcification. 3) Fall/Jaw pain patient fell when reaching to get something out of cupboard, hitting face/left jaw on padded chair, then again on floor on way down; not chronically falling/no recurrent falls cervical facet syndrome vs. progressive valvular disease vs. deconditioning - CT-Head impression: No acute intracranial abnormality. Atrophy and microvascular ischemic changes - CT-Face impression: No fractures within the maxillofacial region. - Cervical spine CT: Moderate to severe facet degenerative changes are noted. Mild disc space narrowing at C6-C7. No fractures w/in cervical spine. 4) GERALD - Cr, 1.4 (on admission) (baseline, 0.95 - 1.2) - BUN/Cr, 20.6; likely pre-renal - F/U w/ BMP as outpatient to monitor resolution of GERALD and Cr after starting lisinopril Total Time Total Time Spent Total Time Spent (In Minutes): <30 Discharge Plan Discharge Items Patient Disposition: Home - Self-Care Reason For Visit: FALL Discharge Diagnosis: NSTEMI, acute coronary syndrome Activity: Resume your previous activity Non-emergency contact: Primary Care Provider Call non-emergency contact if: you have any medication questions and your pain is concerning for you Follow-up/Referrals: Kailee Longoria MD [Primary Care Provider] - Diet: Heart Healthy Addtl Attending Provider Instructions: You were admitted to the hospital for bilateral jaw pain and nausea consistent with acute coronary syndrome. You were treated with aspirin. A discharge summary will be sent to your primary care physician to ensure continuity of care. Please bring this discharge summary with you to your next office appointment so that your provider can review it at that time. Follow-up appointments: We have requested a follow-up appointment with your primary care physician within one week of discharge. Please call their office if you do not hear from them. Keep all your follow-up appointments as already scheduled. If you cannot make an appointment, notify your provider. Medications: Your medication list has been reviewed and reconciled upon discharge to ensure accuracy and continuity of care. An updated list of all your medications is included with your hospital discharge paperwork. Please review this list closely, and make note of any changes. We sent a new medication called atorvastatin to your pharmacy. Take atorvastatin, 40mg/one tablet, daily, regularly. We sent a new medication called aspirin to your pharmacy. Take aspirin, 81 mg/one tablet, daily, regularly. We sent a new medication called lisinopril to your pharmacy. Take lisinopril, 10 mg/one tablet, daily, regularly.. Take your medications as instructed; do not skip a dose of your medicines. Make sure all of your doctors know every medicine you are taking (including ihch-gie-dgvvqff medicines, vitamins, and supplements). Call your primary care provider before taking any new medicines (including mleb-sjr-gzhstyk medicines, vitamins, and supplements), because some of these may interact with your current medications, or may make your symptoms worse. Tell your primary care provider if you cannot afford your medications. CONTACT YOUR PRIMARY CARE PROVIDER if you experience any of the following: chest pain, jaw pain, nausea, vomiting Difficulty following your treatment plan, or difficulty taking medications CALL 911 OR GO TO THE EMERGENCY DEPARTMENT if you experience any of the following: Sudden, severe abdominal pain or nausea/vomiting Severe chest pain, or chest pain that radiates (moves) to your jaw or arm Sudden, severe shortness of breath or difficulty breathing Thank you for allowing us to participate in your care. Pending Studies at Discharge: No Stand-Alone Forms: My [facility] Sold, Smoking Cessation Medications and DC Order Prescriptions: New atorvastatin 40 mg tablet 40 mg PO HS Qty: 30 0RF lisinopril 10 mg tablet 10 mg PO DAILY Qty: 30 0RF aspirin [Adult Low Dose Aspirin] 81 mg tablet,delayed release (DR/EC) 81 mg PO DAILY Qty: 30 0RF Continued fluorometholone 0.1 % Drops,Suspension 1 drp OPB 3XWK Rx Instructions: mon/wed/fri Prolia 60 mg/mL Syringe 60 mg SUBCUT UD Rx Instructions: every 6 months, but pt has forgotten to get it for the past 1.5 years amlodipine 10 mg tablet 10 mg PO QAM paroxetine HCl 10 mg tablet 10 mg PO DAILY ondansetron 4 mg tablet,disintegrating 4 mg translingual DAILY PRN (Reason: Nausea) omeprazole 40 mg capsule,delayed release(DR/EC) 40 mg PO DAILY Discharge Orders: Discharge Order (Routine); Ordered 06/10/24 Ordered By: Eben Gary Admission Data Admit Date/Time: 06/09/24 11:50 Attending Provider: Jose Muniz Admit Provider: Eben Gary Primary Care Provider: Kailee Longoria Other Interventions: Discharge Summary Assessment (RN) Last Done: 06/10/24 17:21 Supervising Physician Co-Signing Physician Notes I personally examined the patient and verified all johnson points of history and exam, discussed case, and agree with decision making with Dr Gary Feeling okay, feels up to going home. Extensive discussion with patient, and then and son arrivedreiterated discussions with themanswered all questions the best my ability and to her satisfaction and then again to hus band/son's satisfaction. Vitals noted, in general she is awake and alert pleasant no distress. HEENT normocephalic atraumatic mucous membranes moist breathing unlabored no accessory muscle use good effort skin without rashes pallor or icterus. jaw pain/nauseaelevated troponintime course and troponin pattern would fit with NSTEMIfortunately overall peak troponin and lack of changes on echoca rdiogram/lack of regional wall motion abnormalities makes it seem like it was extremely small. Extensive discussion with patient and familydiscussed that aggressive care would involve a left heart cath to evaluate coronary anatomy, and then possibly intervention; at the same time given fairly minor symptoms and a very small troponin bump with no wall motion abnormalities, this would imply likely a very small area at riskand given her age and possible CKD, the chances of complications from a heart cath (while still overall fairly small) would be bigger in her than someone younger. Discussed med management and following symptoms. she would prefer this approach, and I wholeheartedly agree. Will initiate aspirin, atorvastatin 40 mg, lisinopril 5 mg (check basic metabolic panel in 1-2 weeks). Follow symptoms If she is feeling fine with no exertional symptoms and no recurrence of jaw pain/nausea, then continue medication management; if she has recurrence of jaw pain/nausea type symptoms, or if she does start to notice easy fatigability/dyspnea on exertion/jaw pain/nausea on exertion/etc.then the risk of undergoing a left heart cath would potentially be more worth her while. if the situation is vague and it is hard to tell if she is having much symptoms, but it is clear that she is not feeling greatthen stress testing to look for a large territory at risk might be reasonable. She expressed a good understanding of this. Safe/stable for home, close and ongoing PCP follow-up. Basic metabolic panel 1-2 weeks. Creatinine of 1.4 currentlyunclear baseline, possibly does have baseline stage III4 CKD, but this will obviously be better discerned by follow-up by her PCP given that most of her labs on record would be in their system.
[2024-06-10] MEDS: PARoxetine HCL 10 MG TAB PO SCH (08:25)
[2024-06-10] MEDS: ASPIRIN 81 MG ECTAB PO SCH (08:25)
[2024-06-10] MEDS: PANTOprazole 40 MG TAB PO SCH (08:25)
[2024-06-10] MEDS: amLODIPine BESYLATE 5 MG TAB PO SCH (08:25)
[2024-06-10 09:09] VITALS: RESP 18
[2024-06-10 09:28] LABS: Chol HDL Ratio 3.5 (0-5)
[2024-06-10 15:39] VITALS: O2SAT 94
--- NOTE | 2024-06-10 15:40 | XCELERA ---
[id number]
[2024-06-10 17:23] VITALS: BP 140/72; PULSE 58
--- NOTE | 2024-06-10 17:50 | Billing Data ---
Date of Service June 10, 2024 Coding Level of Care Code 81580 IN/OBS DISCH 30 MIN/LESS
--- NOTE | 2024-06-12 15:41 | Electrocardiogram Report ---
Test Reason : Blood Pressure : */* mmHG Vent. Rate : 65 BPM Atrial Rate : 65 BPM P-R Int : 168 ms QRS Dur : 80 ms QT Int : 440 ms P-R-T Axes : 59 37 51 degrees QTcB Int : 457 ms Normal sinus rhythm Normal ECG When compared with ECG of 09-Jun-2024 07:43, (unconfirmed) No significant change was found Confirmed by Kay Mckenzie (Paz) on 06/09/2024 7:28:49 PM Referred By: REFERRED SELF Confirmed By: Kay Mckenzie
--- NOTE | 2024-06-12 15:41 | Electrocardiogram Report ---
Test Reason : Blood Pressure : */* mmHG Vent. Rate : 60 BPM Atrial Rate : 60 BPM P-R Int : 180 ms QRS Dur : 80 ms QT Int : 442 ms P-R-T Axes : 54 44 52 degrees QTcB Int : 442 ms Normal sinus rhythm Normal ECG When compared with ECG of 25-Nov-2022 19:08, T wave amplitude has decreased in Anterolateral leads Confirmed by Kay Mckenzie (Paz) on 06/09/2024 7:06:59 PM Referred By: REFERRED SELF Confirmed By: Kay Mckenzie
== END 2024-06-10 17:30 | disposition home or self-care (01) | DRG 281 ==
LOC: ED 06:25 → EDINP 11:50

== ENCOUNTER 2024-08-15 21:05 | Observation (INO) ==
--- NOTE | 2024-08-15 21:08 | Emergency Department Note ---
Impression & Plan Dizziness, GERALD (acute kidney injury), Bradycardia, Pre-syncope, Acute dehydration ED Provider Note NAME: ROSALVA ELLSWORTH AGE: 88 SEX: F : 1935 ARRIVES VIA: Ambulance INFORMANT: Patient, , EMS/nursing report ED PROVIDER(S): Jus Fan MD CHIEF COMPLAINT: Dizziness MEDICAL DECISION MAKING: Patient presents due to concern for presyncopal symptoms. IV was established and blood work was obtained. EKG shows a sinus bradycardia. Patient with a normal white count hemoglobin virtually normal at 11.6 with a normal platelet count. Kidney function with a creatinine 1.97. This has increased. Patient has received a total of 750 upon arrival to the emergency department which was initially started by EMS. Patient did have a full liter given. Given the patient's associated lightheadedness recent beta-laureen administration and GERALD I did speak with the on-call hospitalist service and the patient was admitted to the medicine service. Discussion w/ other healthcare providers: Dr. Garces inpatient medicine service Prior /Outside records reviewed: I reviewed part of a discharge summary from [facility] from June 10, 2024. Patient was admitted at that time due to concern for NSTEMI and GERALD. Also with associated hypoxia. Differential diagnosis: Infection, dehydration, metabolic abnormality, hypo/hyperglycemia, electrolyte imbalance, anemia, UTI, pneumonia, thyroid dysfunction among others were considered. Diagnostics, as interpreted by me: ECG: Sinus bradycardia with PACs, rate of 53, normal QRS duration, normal axis no ST elevations. Cardiac monitoring: An order was placed for continuous cardiac monitoring. The monitor shows a rate of 48 with sinus rhythm. Patient was placed on pulse oximetry Medical decision rules: None Imaging studies: I informally interpreted the patient's chest x-ray does not show obvious pneumonia or pneumothorax with formal report to follow. HPI: Patient presents due to concern for presyncope. The patient states that she was getting lightheaded and dizzy while talking to a neighbor. The patient states that she went and sat down and subsequently called the ambulance. Patient did receive 4 Zofran around as the patient was feeling nauseous. The patient does complain of some dizziness. The patient states that she has had poor p.o. intake not eating as much but has been try to drink. Patient believes that she is lost about 7 or 8 pounds in the last 3 weeks. She also does report that she was started on a beta-laureen yesterday by Dr. Capellan and is taken 2 doses. Patient also did have a recent admission earlier in the month. Patient denies any abdominal pain no nausea vomiting or diarrhea. Patient denies any known sick contacts or recent travel. Patient denies any dark stools or bloody stools. PAST MEDICAL HISTORY: See Below PAST SURGICAL HISTORY: See Below SOCIAL HISTORY: See Below HOME MEDICATIONS: See Below ALLERGIES: See Below VITALS: See Below PHYSICAL EXAMINATION: GENERAL: Fatigable but nontoxic in appearance. EYE EXAM: Normal conjunctiva. PERRL, no anisocoria and EOM's grossly intact w/o pain. OROPHARYNX: Dry mucus membranes, edentulous. NECK: Trachea midline, no stridor. Supple, no nuchal rigidity, no adenopathy, non-tender. No signs of meningismus. FROM of the neck with good chin to chest and neck extension. LUNGS: Clear to auscultation. Normal chest wall mechanics. HEART: NSR, no MRG. ABDOMEN: Abdomen soft, non-tender, no masses, no rebound or guarding. BACK: No CVA TTP. SKIN: No rashes and no bruising. UPPER EXTREMITIES: Upper extremities are grossly normal. LOWER EXTREMITIES: Grossly normal, no edema. NEURO EXAM: A&O x3, cranial nerves II-XII grossly intact, normal speech, moves all 4 extremities. Past Med/Surg History Problem List Acute dehydration (Acute) Pre-syncope (Acute) Bradycardia (Acute) GERALD (acute kidney injury) (Acute) Dizziness (Acute) Abnormal urinalysis CKD stage 3b, GFR 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 Drug reaction Pre-syncope Bradycardia GERALD (acute kidney injury) Elevated troponin (Acute) Non-STEMI (non-ST elevated myocardial infarction) (Acute) Jaw pain (Acute) Headache (Acute) Fall (Acute) Tick bite (Acute) Rectal bleeding Rectal prolapse (Chronic) Encounter for pre-operative examination Hypertension Osteoarthritis GERD (gastroesophageal reflux disease) controlled Cancer L BREAST, DOUBLE MASTECTOMY - CHEMO (2016) Hx of mastectomy BILATERAL Hx of cornea transplant BL Medical History Limb alert care status LUE Osteoporosis Surgical History Hx of colonoscopy History of left knee replacement H/O cataract removal with insertion of prosthetic lens bilateral Family History Other Family history of diabetes mellitus Denies family history of Ovarian cancer Breast cancer Colorectal cancer Social History Smoking Status: Never smoker Second Hand Exposure: No; Do You Dip or Chew Tobacco: No; Hx Alcohol Use: No Hx Substance Use: No Preferred Language: Nepali Communication Ability: Effective Visual Impairment: No Limitations Rat Exterminator Required: No Beliefs That Will Affect Care: None Current Living Situation: Spouse Feels Safe at Home: Yes Assistive Devices: None Allergies Allergies Allergy/AdvReac Type Severity Reaction Status Date / Time morphine Allergy Unknown RASH Verified 06/09/24 09:47 terazosin Allergy Verified 06/09/24 09:55 Home Meds Home Medications Medication Instructions Recorded Confirmed denosumab 60 mg/mL subcutaneous 60 mg subcut .EVERY 6 MONTHS 04/11/19 08/15/24 syringe (Prolia) fluorometholone 0.1 % eye 1 drp OPB [id number] 04/11/19 08/15/24 drops,suspension ondansetron 4 mg disintegrating 4 mg translingual DAILY PRN Nausea 11/25/22 08/15/24 tablet paroxetine HCl 10 mg tablet 10 mg PO DAILY 11/25/22 08/15/24 omeprazole 40 mg capsule,delayed 40 mg PO DAILY 06/09/24 08/15/24 release atorvastatin 40 mg tablet 40 mg PO HS 08/15/24 08/15/24 metoprolol succinate 25 mg 25 mg PO HS 08/15/24 08/15/24 tablet,extended release 24 hr Previous Rx's Medication Instructions Recorded aspirin 81 mg tablet,delayed 81 mg PO DAILY #30 tabs 06/10/24 release (Adult Low Dose Aspirin) lisinopril 10 mg tablet 10 mg PO DAILY #30 tabs 06/10/24 amlodipine 2.5 mg tablet 2.5 mg PO DAILY #30 tabs 08/17/24 Results & Data (ED) Vital Signs Vital Signs - 24 hr 08/15/24 21:10 08/15/24 21:10 08/15/24 21:12 Temperature 36.5 C Temperature Source Oral Pulse Rate 48 L 46 L Pulse Rate [Apical] Pulse Rhythm Regular Pulse Rhythm [Apical] Pulse Strength [Apical] Respiratory Rate 18 Respiratory Effort / Characteristics Non-Labored Respiratory Depth Normal Respiratory Pattern Regular Blood Pressure 127/52 L Blood Pressure [Right Arm] Blood Pressure Mean 77 Blood Pressure Mean [Right Arm] Pulse Oximetry 94 Oxygen Delivery Method Room Air Room Air Sepsis Recent Fever Within 48 Hours No Sepsis New/Unexplained Change in Mental Status N/A Sepsis Action Taken by Nursing No Action Required 08/15/24 21:20 08/15/24 22:00 Temperature Temperature Source Pulse Rate Pulse Rate [Apical] 56 L Pulse Rhythm Pulse Rhythm [Apical] Regular Pulse Strength [Apical] Normal Respiratory Rate 16 Respiratory Effort / Characteristics Non-Labored Respiratory Depth Normal Respiratory Pattern Regular Blood Pressure Blood Pressure [Right Arm] 121/59 L Blood Pressure Mean Blood Pressure Mean [Right Arm] 79 Pulse Oximetry 96 Oxygen Delivery Method Room Air Room Air Sepsis Recent Fever Within 48 Hours Sepsis New/Unexplained Change in Mental Status Sepsis Action Taken by Custodial Medications Current Medication List: was personally reviewed by me Laboratory Data Attestation: I reviewed the patient's lab results. 08/15/24 21:14 08/17/24 07:26 Lab Results 08/15/24 08/15/24 Range/Units 21:14 22:45 WBC 8.52 (4.8-10.8) K/ul RBC 3.86 L (4.20-5.40) M/uL Hgb 11.6 L (12.0-16.0) g/dl Hct 35.2 L (37.0-47.0) % MCV 91.2 (80.0-100.0) fL MCH 30.1 (25.0-34.0) pg MCHC 33.0 (32.0-36.0) g/dL RDW Std Deviation 46.5 H (36.4-46.3) fL RDW Coeff of Manfred 13.8 (11.5-14.5) % Plt Count 224 (130-400) K/uL MPV 11.0 (9.4-12.4) fL Immature Gran % (Auto) 1.4 % Neut % (Auto) 51.2 % Lymph % (Auto) 30.5 % [place] % (Auto) 7.7 % Eos % (Auto) 7.7 % Baso % (Auto) 1.5 % Neut # (Auto) 4.35 (1.40-6.50) K/uL Lymph # (Auto) 2.60 (1.20-3.40) K/uL Charlotte # (Auto) 0.66 H (0.11-0.59) K/uL Eos # (Auto) 0.66 H (0.00-0.50) K/uL Baso # (Auto) 0.13 (0.00-0.20) K/uL Immature Gran # (Auto) 0.12 (0.01-0.20) K/uL Echinocytes 1+ PT Cancelled 10.5 INR Cancelled 1.0 APTT Cancelled 21 PTT Ratio Cancelled 0.8 Sodium 137 (136-145) mmol/L Potassium 4.3 (3.5-5.1) mmol/L Chloride 104 (98-107) mmol/L Carbon Dioxide 24 (21-32) mmol/L Anion Gap 9 (3-11) BUN 31 H (6-23) mg/dl Creatinine 1.97 H (0.6-1.2) mg/dl Est Cr Clr Drug Dosing 14.9 ml/min eGFR 24.02 BUN/Creatinine Ratio 15.7 (10-20) Glucose 120 H (70-99(Fasting)) mg/dl Calcium 9.7 (8.6-10.3) mg/dl Magnesium 1.9 (1.7-2.4) mg/dl Total Bilirubin 0.3 (0.2-1.0) mg/dl AST 19 (13-39) U/L ALT 14 (7-52) U/L Alkaline Phosphatase 89 (34-104) U/L Troponin I High Sens 12.5 (0-14) pg/ml Total Protein 6.8 (6.0-8.3) gm/dl Albumin 4.3 (3.4-5.0) gm/dl Globulin 2.5 (2.5-4.0) gm/dl Albumin/Globulin Ratio 1.7 (0.9-2) TSH 7.164 H (0.300-4.500) uIu/ml Free T4 0.98 (0.61-1.60) ng/dl Administered Medications Discontinued Medications Amlodipine Besylate (Amlodipine Besylate 5 Mg Tab) 5 mg PO DAILY YO Stop: 09/15/24 08:59 Last Admin: 08/16/24 08:27 Dose: 5 mg Documented By: Amlodipine Besylate (Amlodipine Besylate 5 Mg Tab) 2.5 mg PO DAILY YO Stop: 09/16/24 08:59 Last Admin: 08/17/24 08:36 Dose: 2.5 mg Documented By: Aspirin (Aspirin 81 Mg Ectab) 81 mg PO DAILY YO Stop: 09/15/24 08:59 Last Admin: 08/17/24 08:35 Dose: 81 mg Documented By: Admin: 08/16/24 08:27 Dose: 81 mg Documented By: Atorvastatin Calcium (Atorvastatin 40 Mg Tab) 40 mg PO HS YO Stop: 09/15/24 20:59 Last Admin: 08/16/24 20:30 Dose: 40 mg Documented By: GLEN Famotidine (Pepcid 20mg Iv Push) 20 mg in 5 mls @ 2.5 mls/min IV NOW STA Stop: 08/15/24 21:53 Last Admin: 08/15/24 21:55 Dose: 2.5 mls/min Documented By: HB Sodium Chloride (Nss) 250 mls @ 999 mls/hr IV .Q16M ONE Stop: 08/15/24 23:45 Last Infusion: 08/16/24 00:27 Dose: Infused Documented By: Admin: 08/15/24 23:40 Dose: 999 mls/hr Documented By: JASVIR Melatonin (Melatonin 3 Mg Tab) 3 mg PO HS PRN PRN Reason: Insomnia Stop: 09/14/24 23:03 Last Admin: 08/16/24 22:31 Dose: 3 mg Documented By: Admin: 08/16/24 01:43 Dose: 3 mg Documented By: GLEN Miscellaneous (Order Awaiting Action: Fluorometholone 0.1 % Drops,Suspension) 1 each N/A QS [facility] Stop: 09/15/24 07:59 Last Admin: 08/17/24 07:37 Dose: Not Given Documented By: Admin: 08/16/24 23:24 Dose: Not Given Documented By: Admin: 08/16/24 15:28 Dose: Not Given Documented By: Admin: 08/16/24 07:35 Dose: Not Given Documented By: Pantoprazole Sodium (Pantoprazole 40 Mg Tab) 40 mg PO DAILY YO Stop: 09/15/24 08:59 Last Admin: 08/17/24 08:36 Dose: 40 mg Documented By: Admin: 08/16/24 08:27 Dose: 40 mg Documented By: Paroxetine HCl (Paroxetine Hcl 10 Mg Tab) 10 mg PO DAILY YO Stop: 09/15/24 08:59 Last Admin: 08/17/24 08:36 Dose: 10 mg Documented By: Admin: 08/16/24 08:27 Dose: 10 mg Documented By: Imaging Data Radiologist's Impression: Chest X-Ray 08/15/24 22:05 SINGLE VIEW CHEST CLINICAL HISTORY: Dizziness. FINDINGS: An AP, portable, upright chest radiograph is compared to study dated 07/05/2024. A hiatal hernia is noted. The heart is enlarged noting atherosclerotic calcification of the thoracic aorta. The pulmonary vasculature is noncongested. Chronic interstitial thickening is similar to previous. There is mild bibasilar scarring/atelectasis. No airspace consolidation or large pleural effusion is identified. No pneumothorax is seen. The skeletal structures are osteopenic. The bony thorax is grossly intact. Surgical clip is projected over the bilateral chest wall/axillae. IMPRESSION: Cardiomegaly with no active disease in the chest. ACT 112: Negative or not required by law. Electronically signed by: Shawn Barnes M.D. 08/15/2024 10:26 PM Discharge Plan Visit Data Chief Complaint: Syncope Stated Complaint: Syncope, Headache, Dizziness ED Provider: Jus Fan Discharge Problem: Dizziness, GERALD (acute kidney injury), Bradycardia, Pre-syncope, Acute dehydration Patient Disposition: Admitted As Inpatient Discharge Instructions Interventions: ED Discharge Assessment Last Done: 08/16/24 00:38
[2024-08-15 21:52] LABS: Hematocrit (blood only) 35.2 % (37.0-47.0); Hemoglobin 11.6 g/dl (12.0-16.0); Mean Corpuscular Hemoglobin 30.1 pg (25.0-34.0); Mean Corpuscular Volume 91.2 fL (80.0-100.0); RDW Coefficient of Variation 13.8 % (11.5-14.5); RDW Standard Deviation 46.5 fL (36.4-46.3); Red Blood Count 3.86 M/uL (4.20-5.40); White Blood Count 8.52 K/ul (4.8-10.8)
[2024-08-15 21:53] LABS: Albumin Globulin Ratio 1.7 (0.9-2); Albumin Level 4.3 gm/dl (3.4-5.0); BUN Creatinine Ratio 15.7 (10-20); Bilirubin,Total 0.3 mg/dl (0.2-1.0); Calcium 9.7 mg/dl (8.6-10.3); Creatinine Clr Calc Pharmacy 14.9 ml/min; Globulin 2.5 gm/dl (2.5-4.0); Magnesium 1.9 mg/dl (1.7-2.4); Potassium 4.3 mmol/L (3.5-5.1); Total Protein 6.8 gm/dl (6.0-8.3)
[2024-08-15] MEDS: FAMOTIDINE 20MG IV PUSH 20 MG/5 ML SYR IV STA (21:55)
[2024-08-15 22:00] LABS: Troponin I High Sensitivity 12.5 pg/ml (0-14)
[2024-08-15 22:10] LABS: Thyroid Stimulating Hormone 7.164 uIu/ml (0.300-4.500)
--- NOTE | 2024-08-15 22:27 | XRay Report ---
SINGLE VIEW CHEST CLINICAL HISTORY: Dizziness. FINDINGS: An AP, portable, upright chest radiograph is compared to study dated 07/05/2024. A hiatal he rnia is noted. The heart is enlarged noting atherosclerotic calcification of the thoracic aorta. The pulmonary vasculature is noncongested. Chronic interstitial thickening is similar to previous. There is mild bibasilar scarring/atelectasis. No airspace consolidation or large pleural effusion is identi fied. No pneumothorax is seen. The skeletal structures are osteopenic. The bony thorax is grossly int act. Surgical clip is projected over the bilateral chest wall/axillae. IMPRESSION: Cardiomegaly with no active disease in the chest. ACT 112: Negative or not required by law. Electronically signed by: Shawn Barnes M.D. 08/15/2024 10:26 PM
[2024-08-15 22:29] LABS: Basophils # (auto) 0.13 K/uL (0.00-0.20); Basophils % (auto) 1.5 %; Echinocytes 1+; Eosinophils # (auto) 0.66 K/uL (0.00-0.50); Eosinophils % (auto) 7.7 %; Immature Granulocytes # (auto) 0.12 K/uL (0.01-0.20); Immature Granulocytes % (auto) 1.4 %; Lymphocytes % (auto) 30.5 %; Monocytes # (auto) 0.66 K/uL (0.11-0.59); Monocytes % (auto) 7.7 %; Neutrophils # (auto) 4.35 K/uL (1.40-6.50); Neutrophils % (auto) 51.2 %; Platelet Count 224 K/uL (130-400)
[2024-08-15 22:46] LABS: T4 Free Thyroxine 0.98 ng/dl (0.61-1.60)
[2024-08-15] MEDS ORDERED: ACETAMINOPHEN 325 MG TAB PO PRN (23:04)
[2024-08-15] MEDS ORDERED: POLYETHYLENE (MIRALAX) 17 GM PACK PO PRN (23:04)
[2024-08-15] MEDS ORDERED: ONDANSETRON INJ 2 MG/ML 2 ML VIAL IV PRN (23:04)
[2024-08-15 23:30] LABS: Partial Thromboplastin Ratio 0.8; Partial Thromboplastin Time 21 Seconds (21-31); Prothrombin Time 10.5 Seconds (9.0-12.0)
[2024-08-15] MEDS: SODIUM CHLORIDE 0.9% 250 ML IV ONE (23:40)
--- NOTE | 2024-08-15 23:49 | History & Physical Report ---
Date of Service August 15, 2024 Assessment & Plan (1) Pre-syncope: (2) GERALD (acute kidney injury): (3) Bradycardia: (4) Drug reaction: Plan Presyncope Pt report presyncopal event at home after standing for approx 15 minutes. She lowered herself to the floor and denies loss of consciousness or fall. Pt's vitals show relatively stable BP and bradycardia. Pt has symptoms of dehydration vs drug reaction to beta laureen vs UTI - Complete IVF that was started by EMS - Ordered UA, awaiting results - Ordered PT/OT eval for 08/16 GERALD In setting of CKD. Creatinine found to be 1.97, Baseline is 1.2. Pt also admits to limited hydration at home. - Hold lisinopril Bradycardia Pt appears to have baseline HR in the mid to low 60's. Echocardiogram on 06/10 with EF 70% and left atrial dilatation. She started on beta laureen on 08/14 for treatment of NVT found on event monitor with cardiology. - Hold Metoprolol Drug reaction Presyncope and bradycardia possibly due to recently initiation of metoprolol. - Hold metoprolol, consider consult with cardiology if Bradycardia and symptoms continue Other Chronic Conditions: GERD- Continue omeprazole 40mg PO qd HLD- Continue atorvastatin 40 mg PO qhs HTN- amlodipine 10mg PO qd Dispo- PCU Diet: Forced PO liquids DVT prophylaxis: Aspirin 81mg Code: Full History of Present Illness Chief Complaint: Pre syncope Primary Care Provider: Kailee Longoria MD Pt is an 88 yo female with PHM of breast CA, GERD, NSTEMI, HTN, and OA who presented to the ED due to dizziness and presyncope. Pt reports she was standing and talking for about 15 minutes this evening when she became dizzy. She felt as though she would pass out so she sat her self down on the floor. She denies falling. Pt's neighbor reports pt vomited a small amount at that time as well. Pt had been on an event monitor and found to have NVT. She was prescribed metoprolol last week, but started the new prescription on 08/14 She denies having presyncopal symptoms on first day of new medication. She also admits to drinking approx 16 oz of water and 1 cup of decaf coffee today. No other medication changes recently. Pt denies CP or palpitations, SOB. cough, congestion, nausea, diarrhea, dysuria, fever, chills, or headache. Pt received a total on 750mL of IVF with EMS and in ED. Allergies Allergy/AdvReac Type Severity Reaction Status Date / Time morphine Allergy Unknown RASH Verified 06/09/24 09:47 terazosin Allergy Verified 06/09/24 09:55 Home Medications Medication Instructions Recorded Confirmed Type denosumab 60 mg/mL subcutaneous 60 mg subcut .EVERY 6 MONTHS 04/11/19 08/15/24 History syringe (Prolia) fluorometholone 0.1 % eye 1 drp OPB [id number] 04/11/19 08/15/24 History drops,suspension ondansetron 4 mg disintegrating 4 mg translingual DAILY PRN Nausea 11/25/22 08/15/24 History tablet paroxetine HCl 10 mg tablet 10 mg PO DAILY 11/25/22 08/15/24 History omeprazole 40 mg capsule,delayed 40 mg PO DAILY 06/09/24 08/15/24 History release aspirin 81 mg tablet,delayed 81 mg PO DAILY #30 tabs 06/10/24 08/15/24 Rx release (Adult Low Dose Aspirin) lisinopril 10 mg tablet 10 mg PO DAILY #30 tabs 06/10/24 08/15/24 Rx amlodipine 10 mg tablet 10 mg PO DAILY 08/15/24 08/15/24 History atorvastatin 40 mg tablet 40 mg PO HS 08/15/24 08/15/24 History metoprolol succinate 25 mg 25 mg PO HS 08/15/24 08/15/24 History tablet,extended release 24 hr Past Med/Surg History Problem List Drug reaction Pre-syncope Bradycardia GERALD (acute kidney injury) Elevated troponin (Acute) Non-STEMI (non-ST elevated myocardial infarction) (Acute) Jaw pain (Acute) Headache (Acute) Fall (Acute) Tick bite (Acute) Rectal bleeding Rectal prolapse (Chronic) Encounter for pre-operative examination Hypertension Osteoarthritis GERD (gastroesophageal reflux disease) controlled Cancer L BREAST, DOUBLE MASTECTOMY - CHEMO (2015) Hx of mastectomy BILATERAL Hx of cornea transplant BL Medical History Limb alert care status LUE Osteoporosis Surgical History Hx of colonoscopy History of left knee replacement H/O cataract removal with insertion of prosthetic lens bilateral Family History Other Family history of diabetes mellitus Denies family history of Ovarian cancer Breast cancer Colorectal cancer Social History Smoking Status: Never smoker Second Hand Exposure: No; Do You Dip or Chew Tobacco: No; Hx Alcohol Use: No Hx Substance Use: No Preferred Language: Syriac Communication Ability: Effective Visual Impairment: No Limitations Electronics System Mechanic Required: No Beliefs That Will Affect Care: None Current Living Situation: Spouse Other Information That Helps Us Care for You: No Feels Safe at Home: Yes Safety Concerns: Feels Safe At This Time Assistive Devices: Contacts, Denture - Upper and Denture - Lower Review of Systems Review of Systems: As per HPI Physical Exam Constitutional: + thin; no acute distress Eyes: PERRL, conjunctivae normal, anicteric sclerae Neck: trachea midline, no thyromegaly Respiratory: normal respiratory effort, lungs clear to auscultation Cardiovascular: Rate/Rhythm: regular rate, regular rhythm and + bradycardic Heart Sounds: no gallop and no murmur Extremities: + pedal edema (trace) Gastrointestinal (Abdomen): normal bowel sounds, soft, nontender, no hepatosplenomegaly Musculoskeletal: no cyanosis or clubbing, extremities motor strength 5/5 Skin: no rashes, warm and dry Psychiatric: A+Ox3, euthymic affect Results & Data Results & Data Vital Signs (Past 12 Hours) Vital Signs Temp Pulse Pulse Resp BP BP Pulse Ox 08/15/24 22:00 56 L 16 121/59 L 96 08/15/24 21:20 08/15/24 21:12 46 L 08/15/24 21:10 08/15/24 21:10 36.5 C 48 L 18 127/52 L 94 O2 Del Method 08/15/24 22:00 Room Air 08/15/24 21:20 Room Air 08/15/24 21:12 08/15/24 21:10 Room Air 08/15/24 21:10 Room Air Supervising Physician Co-Signing Physician Notes Attending addendum: I have physically seen this patient, have supervised the medical residents activities, and agree with the H&P unless as otherwise noted. Assessment and Plan: Near syncope- Contributing factors including but not limited to: Dehydration, acute kidney injury, bradycardia due to beta-laureen, decreased oral intake in general, and progressive debilitation Sinus bradycardia/hypertension- Heart rate in the ED on monitor dropped to as low as 46, but rebounded to the upper 50s to lower 60s Patient had recently been started on metoprolol succinate 25 mg at bedtime due to heart monitor revealing increased heart rate, and had just taken her second dose before coming to the ED this evening Hold metoprolol for now Echocardiogram on 06/10/2024 with ejection fraction greater than 70% Continue amlodipine, but decrease dosing from 10 to 5 mg daily, until intake returns to normal Acute kidney injury superimposed on CKD/dehydration- Creatinine 1.97 on admission, with base 1.23 Patient admittedly does not like to drink water, drinking an average of 32 ounces a day, however, she only drank 16 ounces today. Complete a full liter normal saline bolus from administration EMS and remainder in the ED Encourage oral intake of fluids Repeat laboratories in the a.m. Resident Activity Tracking Resident Involvement: Resident Care Provided Care Provided: Adult [facility] Medicine
[2024-08-16] MEDS: MELATONIN 3 MG TAB PO PRN (01:43)
--- NOTE | 2024-08-16 06:02 | Billing Data ---
Date of Service August 16, 2024 Coding Level of Care Code 38225 INT INP/OBS CARE
[2024-08-16 06:54] LABS: Potassium 4.4 mmol/L (3.5-5.1)
[2024-08-16 06:58] LABS: BUN Creatinine Ratio 20.3 (10-20); Creatinine Clr Calc Pharmacy 19.4 ml/min
[2024-08-16] MEDS: [UNRECOGNIZED DRUG - OTHER] SCH (07:35)
[2024-08-16] MEDS: amLODIPine BESYLATE 5 MG TAB PO SCH (08:27)
[2024-08-16] MEDS: ASPIRIN 81 MG ECTAB PO SCH (08:27)
[2024-08-16] MEDS: PANTOprazole 40 MG TAB PO SCH (08:27)
[2024-08-16] MEDS: PARoxetine HCL 10 MG TAB PO SCH (08:27)
--- NOTE | 2024-08-16 08:29 | Electrocardiogram Report ---
Test Reason : Blood Pressure : */* mmHG Vent. Rate : 53 BPM Atrial Rate : 53 BPM P-R Int : 200 ms QRS Dur : 80 ms QT Int : 486 ms P-R-T Axes : 72 19 34 degrees QTcB Int : 456 ms Sinus bradycardia with Premature atrial complexes Minimal voltage criteria for LVH, may be normal variant Borderline ECG When compared with ECG of 09-Jun-2024 09:10, Premature atrial complexes are now Present Nonspecific T wave abnormality no longer evident in Lateral leads Confirmed by Eben Coffey ([id number]) on 08/16/2024 8:29:39 AM Referred By: REFERRED SELF Confirmed By: Eben Coffey
[2024-08-16] MEDS ORDERED: amLODIPine BESYLATE 5 MG TAB PO SCH (09:00)
[2024-08-16 09:19] LABS: Appearance Urine Clear (Clear); Bacteria Urine Automated None Seen (None Seen); Bilirubin Urine Negative (Negative); Blood Urine Negative (Negative); Color Urine Yellow; Glucose Urine UA Negative (Negative); Ketones Urine Negative (Negative); Leukocyte Esterase Urine 2+ (Negative); Nitrite Urine Negative (Negative); Protein Urine Negative (Negative); RBC Urine Automated 0-2 /hpf (0-2); Specific Gravity Urine 1.012 (1.000-1.030); Urobilinogen Urine Negative (Negative); pH Urine 5.5 (4.5-7.5)
--- NOTE | 2024-08-16 14:44 | Hospitalist Progress Note ---
Date of Service August 16, 2024 Assessment & Plan (1) Pre-syncope: (2) Bradycardia: (3) CKD stage 3b, GFR 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: (4) GERALD (acute kidney injury): (5) Abnormal urinalysis: (6) Hypertension: Plan Presyncope/ Bradycardia - Patient presyncopal event 08/15, lightheaded, dizzy, nausea - Started on metoprolol succinate 08/14, have discontinued - No dizziness, syncopal symptoms today - HR:48 in ED improved to 63 now off B-laureen - Will likely d/c without B-laureen therapy due to low HR - PT/OT consults completed no additional therapy required prior to d/c CKD3b/GERALD - eGFR: 33.2 - Creatinine improving 1.48 today - Encouraged proper oral hydration - CMP QAM Abnormal Urinalysis - 11-20 urinary WBCs with 2+ leukocyte esterase - Patient asymptomatic, no dysuria, burning, confusion - Urine culture pending Hypertension - BP 115/61 this am - Patient taking amlodipine for BP management, reduced in hospital but pressures remain low - Will reduce dosage of amlodipine from 5mg to 2.5mg Admission and Anticipated Discharge Date Admission Date: August 15, 2024 Supervising Physician Co-Signing Physician Notes Attending attestation Pt seen and examined in concert with Dr. Retana. In agreement with the documented findings as noted in the resident documentation with any exceptions or additions as noted here. No acute complaints at time of evaluation. Celebrating her birthday with her spouse on arrival of medical team. On examination, S1/S2 nl RRR. CTAB. Abd NT/ND BS+ve Bradycardia in the setting of recent NSTEMI - HR low normal range off metoprolol. Following discussion with cardiology, will discontinue metoprolol and monitor. GERALD on CKDIIIb - improving with hydration - trend creatinine daily and avoid nephrotoxic medications Hypertension - on amlodipine 10mg at home, reduced to 5mg here and still b orderline low. Reduce to 2.5mg starting tomorrow and monitor. Abnormal UA - aside from presyncope, patient reports no symptoms at present. Will follow urine culture but no need for empiric therapy unless symptoms arise. Check WBC in AM. Else see resident documentation as noted. Subjective Alem Goldsmith is a 89 y/o F with a past medical hx of NSTEMI, malignant neoplasm of breast s/p double mastectomy, CKD IIIb arriving in the ED due to presyncopal episode. Explains that she was speaking to a friend when she became lightheaded and had to sit down as she felt like she was going to pass out. Patient recently was started on metoprolol succinate 25mg 08/14 and also endorses that she has not been able to drink fluids as consistently as she s hould because she gets full quickly. Patient was educated on appropriate oral hydration and food intake, and will make an effort to stay more consistent with her nutrition. Patient is in no acute distress and denies dizziness, nausea, vomiting, abdominal pain, diarrhea, constipation, chest pain, palpitations, pressure, SOB cough wheeze, fevers or chills. Physical Exam Physical Exam: General: patient resting comfortably, NAD, non-toxic in appearance, answers questions appropriately. Skin: warm, dry, intact HEENT: NC/AT, anicteric sclera, conjunctiva without injection, moist mucus membranes. Heart: +S1/S2, regular, no m/r/g Lungs: equal air entry bilaterally, no rales/rhonchi/wheezes Abd: +BS, soft, NT/ND Ext: warm, no clubbing/cyanosis or edema, Lara's neg. Neuro: nonfocal, speech intact, no facial droop, moving all extremities. Results & Data Results & Data Vital Signs (Past 12 Hours) Vital Signs Temp Pulse Pulse Resp BP Pulse Ox Pulse Ox 08/16/24 11:02 97 08/16/24 10:53 36.8 C 62 18 115/61 94 08/16/24 07:21 56 L 08/16/24 07:03 36.6 C 61 18 129/66 90 08/16/24 03:20 36.9 C 64 16 122/68 91 O2 Del Method O2 Flow Rate 08/16/24 11:02 0 08/16/24 10:53 Room Air 08/16/24 07:21 08/16/24 07:03 Room Air 08/16/24 03:20 Room Air
[2024-08-16] MEDS: ATORVASTATIN 40 MG TAB PO SCH (20:30)
[2024-08-17 07:13] VITALS: RESP 18
[2024-08-17 08:12] LABS: Albumin Globulin Ratio 1.6 (0.9-2); Albumin Level 4.1 gm/dl (3.4-5.0); BUN Creatinine Ratio 20.4 (10-20); Bilirubin,Total 0.5 mg/dl (0.2-1.0); Calcium 9.8 mg/dl (8.6-10.3); Creatinine Clr Calc Pharmacy 27.9 ml/min; Globulin 2.6 gm/dl (2.5-4.0); Potassium 4.1 mmol/L (3.5-5.1); Total Protein 6.7 gm/dl (6.0-8.3)
[2024-08-17] MEDS: amLODIPine BESYLATE 5 MG TAB PO SCH (08:36)
[2024-08-17 11:13] VITALS: BP 150/67; PULSE 62; TEMP 98.1; O2SAT 95
--- NOTE | 2024-08-17 12:26 | Discharge Summary ---
Date of Service August 17, 2024 Admission HPI Per Admitting Provider Pt is an 88 yo female with PHM of breast CA, GERD, NSTEMI, HTN, and OA who presented to the ED due to dizziness and presyncope. Pt reports she was standing and talking for about 15 minutes this evening when she became dizzy. She felt as though she would pass out so she sat her self down on the floor. She denies falling. Pt's neighbor reports pt vomited a small amount at that time as well. Pt had been on an event monitor and found to have NVT. She was prescribed metoprolol last week, but started the new prescription on 08/14 She denies having presyncopal symptoms on first day of new medication. She also admits to drinking approx 16 oz of water and 1 cup of decaf coffee today. No other medication changes recently. Pt denies CP or palpitations, SOB. cough, congestion, nausea, diarrhea, dysuria, fever, chills, or headache. Pt received a total on 750mL of IVF with EMS and in ED. Principal Diagnosis Presyncope Discharge Exam General: patient resting comfortably, NAD, non-toxic in appearance, answers questions appropriately. Skin: warm, dry, intact HEENT: NC/AT, anicteric sclera, conjunctiva without injection, moist mucus membranes. Heart: +S1/S2, regular, no m/r/g Lungs: equal air entry bilaterally, no rales/rhonchi/wheezes Abd: +BS, soft, NT/ND Ext: warm, no clubbing/cyanosis or edema, Lara's neg. Neuro: nonfocal, speech intact, no facial droop, moving all extremities. Discharge Data Allergies Allergy/AdvReac Type Severity Reaction Status Date / Time morphine Allergy Unknown RASH Verified 06/09/24 09:47 terazosin Allergy Verified 06/09/24 09:55 Consultations 08/15/24 22:21 ED Decision to Admit Stat Ordered Studies Laboratory Results WBC 8.52 K/ul (4.8-10.8) 08/15/24 21:14 RBC 3.86 M/uL (4.20-5.40) L 08/15/24 21:14 Hgb 11.6 g/dl (12.0-16.0) L 08/15/24 21:14 Hct 35.2 % (37.0-47.0) L 08/15/24 21:14 MCV 91.2 fL (80.0-100.0) 08/15/24 21:14 MCH 30.1 pg (25.0-34.0) 08/15/24 21:14 MCHC 33.0 g/dL (32.0-36.0) 08/15/24 21:14 RDW Std Deviation 46.5 fL (36.4-46.3) H 08/15/24 21:14 RDW Coeff of Manfred 13.8 % (11.5-14.5) 08/15/24 21:14 Plt Count 224 K/uL (130-400) 08/15/24 21:14 MPV 11.0 fL (9.4-12.4) 08/15/24 21:14 Immature Gran % (Auto) 1.4 % 08/15/24 21:14 Neut % (Auto) 51.2 % 08/15/24 21:14 Lymph % (Auto) 30.5 % 08/15/24 21:14 [place] % (Auto) 7.7 % 08/15/24 21:14 Eos % (Auto) 7.7 % 08/15/24 21:14 Baso % (Auto) 1.5 % 08/15/24 21:14 Neut # (Auto) 4.35 K/uL (1.40-6.50) 08/15/24 21:14 Lymph # (Auto) 2.60 K/uL (1.20-3.40) 08/15/24 21:14 [place] # (Auto) 0.66 K/uL (0.11-0.59) H 08/15/24 21:14 Eos # (Auto) 0.66 K/uL (0.00-0.50) H 08/15/24 21:14 Baso # (Auto) 0.13 K/uL (0.00-0.20) 08/15/24 21:14 Immature Gran # (Auto) 0.12 K/uL (0.01-0.20) 08/15/24 21:14 Echinocytes 1+ 08/15/24 21:14 PT 10.5 Seconds (9.0-12.0) 08/15/24 22:45 INR 1.0 (0.9-1.1) 08/15/24 22:45 APTT 21 Seconds (21-31) 08/15/24 22:45 PTT Ratio 0.8 08/15/24 22:45 Sodium 141 mmol/L (136-145) 08/17/24 07:26 Potassium 4.1 mmol/L (3.5-5.1) 08/17/24 07:26 Chloride 109 mmol/L (98-107) H 08/17/24 07:26 Carbon Dioxide 25 mmol/L (21-32) 08/17/24 07:26 Anion Gap 7 (3-11) 08/17/24 07:26 BUN 21 mg/dl (6-23) 08/17/24 07:26 Creatinine 1.03 mg/dl (0.6-1.2) D 08/17/24 07:26 Est Cr Clr Drug Dosing 27.9 ml/min 08/17/24 07:26 eGFR 51.97 08/17/24 07:26 BUN/Creatinine Ratio 20.4 (10-20) H 08/17/24 07:26 Glucose 92 mg/dl (70-99(Fasting)) 08/17/24 07:26 Calcium 9.8 mg/dl (8.6-10.3) 08/17/24 07:26 Magnesium 1.9 mg/dl (1.7-2.4) 08/15/24 21:14 Total Bilirubin 0.5 mg/dl (0.2-1.0) 08/17/24 07:26 AST 18 U/L (13-39) 08/17/24 07:26 ALT 12 U/L (7-52) 08/17/24 07:26 Alkaline Phosphatase 85 U/L (34-104) 08/17/24 07:26 Troponin I High Sens 12.5 pg/ml (0-14) 08/15/24 21:14 Total Protein 6.7 gm/dl (6.0-8.3) 08/17/24 07:26 Albumin 4.1 gm/dl (3.4-5.0) 08/17/24 07:26 Globulin 2.6 gm/dl (2.5-4.0) 08/17/24 07:26 Albumin/Globulin Ratio 1.6 (0.9-2) 08/17/24 07:26 TSH 7.164 uIu/ml (0.300-4.500) H 08/15/24 21:14 Free T4 0.98 ng/dl (0.61-1.60) 08/15/24 21:14 Urine Color Yellow 08/16/24 09:05 Urine Appearance Clear (Clear) 08/16/24 09:05 Urine pH 5.5 (4.5-7.5) 08/16/24 09:05 Ur Specific [place] 1.012 (1.000-1.030) 08/16/24 09:05 Urine Protein Negative (Negative) 08/16/24 09:05 Urine Glucose (UA) Negative (Negative) 08/16/24 09:05 Urine Ketones Negative (Negative) 08/16/24 09:05 Urine Blood Negative (Negative) 08/16/24 09:05 Urine Nitrite Negative (Negative) 08/16/24 09:05 Urine Bilirubin Negative (Negative) 08/16/24 09:05 Urine Urobilinogen Negative (Negative) 08/16/24 09:05 Ur Leukocyte Esterase 2+ (Negative) H 08/16/24 09:05 Urine WBC (Auto) 11-20 /hpf (0-5) H 08/16/24 09:05 Urine RBC (Auto) 0-2 /hpf (0-2) 08/16/24 09:05 U Hyaline Cast (Auto) 3-5 /lpf (0-2) H 08/16/24 09:05 U Epithel Cells (Auto) 3-5 /hpf (0-2) H 08/16/24 09:05 Urine Bacteria (Auto) None Seen (None Seen) 08/16/24 09:05 Impressions Chest X-Ray 08/15/24 22:05 SINGLE VIEW CHEST CLINICAL HISTORY: Dizziness. FINDINGS: An AP, portable, upright chest radiograph is compared to study dated 07/05/2024. A hiatal hernia is noted. The heart is enlarged noting atherosclerotic calcification of the thoracic aorta. The pulmonary vasculature is noncongested. Chronic interstitial thickening is similar to previous. There is mild bibasilar scarring/atelectasis. No airspace consolidation or large pleural effusion is identified. No pneumothorax is seen. The skeletal structures are osteopenic. The bony thorax is grossly intact. Surgical clip is projected over the bilateral chest wall/axillae. IMPRESSION: Cardiomegaly with no active disease in the chest. ACT 112: Negative or not required by law. Electronically signed by: Shawn Barnes M.D. 08/15/2024 10:26 PM Hospital Course (1) Pre-syncope: (2) Bradycardia: (3) CKD stage 3b, GFR 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: (4) GERALD (acute kidney injury): (5) Abnormal urinalysis: (6) Hypertension: Plan Presyncope/ Bradycardia - Patient presyncopal event 08/15, lightheaded, dizzy, nausea - Started on metoprolol succinate 08/14, have discontinued after discussion with cardiology - No dizziness, syncopal symptoms day of discharge - HR:48 in ED improved to 63 now off B-laureen - PT/OT consults completed no additional therapy required prior to d/c CKD3b/GERALD - Encouraged proper oral hydration - Creatinine wnl limits this AM, GERALD resolved Abnormal Urinalysis - 11-20 urinary WBCs with 2+ leukocyte esterase - Patient asymptomatic, no dysuria, burning, confusion - Urine culture negative, culture results indicated normal kylah bacteria Hypertension - hypotension may have contributed to presyncope - dosage of amlodipine reduced from 10mg to 2.5mg - Pressures have increased to 150/67, however will allow for some permissive HTN and keep dosage the same - Requested that patient take home BP readings and bring to PCP to adjust medication dosage if necessary Total Time Total Time Spent Total Time Spent (In Minutes): See attending attestation Discharge Plan Discharge Items Patient Disposition: Home - Self-Care Reason For Visit: BRADYCARDIA, GERALD Discharge Diagnosis: Presyncope Activity: Per Instructions section Non-emergency contact: Primary Care Provider Call non-emergency contact if: your symptoms worsen and your pain is not controlled Follow-up/Referrals: Kailee Longoria MD [Primary Care Provider] - Diet: Regular Addtl Attending Provider Instructions: You were admitted to the hospital for Presyncope/bradycardia. You were treated with discontinuation of your B-laureen medication, and oral hydration. You quickly improved via these measures, and have not had any symptoms of dizziness, loss of balance, or loss of consciousness while in the hospital. We recommend that you continue improving your fluid intake and try to consume approximately 64 oz of water per day. You endorse that you normally struggle to consume 32 oz daily but we have spoken about methods to increase your hydration including different electrolyte OTC packets to mix within your water to add more flavor so that you may hydrate more consistently. It is also important that you take BP readings at home and bring them in to your physician so that they may adjust your BP medication after your recent hospital stay. You were originally on amlodipine 10mg, but we reduced this to amlodipine 5mg and most recently amlodipine 2.5mg because your blood pressures were initially low in the hospital. Upon discharge your BP is slightly elevated, but within reason as we would like to control your systolic pressures between the 120-140 range. After you see your primary care physician in approximately 1 week with your BP readings, your medication can be adjusted or kept the same depending on the results. A discharge summary will be sent to your primary care physician to ensure continuity of care. Please bring this discharge summary with you to your next office appointment so that your provider can review it at that time. Follow-up appointments: Make a follow-up appointment with your PCP within the next week. It is very important that you follow up with them shortly after discharge from the hospital. Medications: Your medication list has been reviewed and reconciled upon discharge to ensure accuracy and continuity of care. An updated list of all your medications is included with your hospital discharge paperwork. Please review this list closely, and make note of any changes. We sent a medication called Amlodipine to your pharmacy. Take Amlodipine 2.5mg one tablet daily. If you have any issues filling these prescriptions, please call [phone] and ask to leave a message for Dr. Deyvi Retana. Take your medications as instructed; do not skip a dose of your medicines. Make sure all of your doctors know every medicine you are taking (including gait-ddk-murloeo medicines, vitamins, and supplements). Call your primary care provider before taking any new medicines (including hlqx-sen-qrlqlfy medicines, vitamins, and supplements), because some of these may interact with your current medications, or may make your symptoms worse. Tell your primary care provider if you cannot afford your medications. CONTACT YOUR PRIMARY CARE PROVIDER if you experience any of the following: Difficulty following your treatment plan, or difficulty taking medications CALL 911 OR GO TO THE EMERGENCY DEPARTMENT if you experience any of the following: Sudden, severe abdominal pain or nausea/vomiting Severe chest pain, or chest pain that radiates (moves) to your jaw or arm Sudden, severe shortness of breath or difficulty breathing Thank you for allowing us to participate in your care. Pending Studies at Discharge: No Stand-Alone Forms: My [facility] [employer], Smoking Cessation Medications and DC Order Prescriptions: New amlodipine 2.5 mg tablet 2.5 mg PO DAILY Qty: 30 0RF Rx Instructions: Please take 1 amlodipine 2.5 mg tablet per day Continued fluorometholone 0.1 % Drops,Suspension 1 drp OPB [id number] Rx Instructions: mon/mon/fri Prolia 60 mg/mL Syringe 60 mg SUBCUT .EVERY 6 MONTHS Rx Instructions: UNABLE TO VERIFY paroxetine HCl 10 mg tablet 10 mg PO DAILY ondansetron 4 mg tablet,disintegrating 4 mg translingual DAILY PRN (Reason: Nausea) omeprazole 40 mg capsule,delayed release(DR/EC) 40 mg PO DAILY lisinopril 10 mg tablet 10 mg PO DAILY Qty: 30 0RF aspirin [Adult Low Dose Aspirin] 81 mg tablet,delayed release (DR/EC) 81 mg PO DAILY Qty: 30 0RF atorvastatin 40 mg tablet 40 mg PO HS metoprolol succinate 25 mg tablet extended release 24 hr 25 mg PO HS Discontinued amlodipine 10 mg tablet 10 mg PO DAILY Discharge Orders: Discharge Order (Routine); Ordered 08/17/24 Ordered By: Deyvi Tucker/Other Patient Handouts: Healthy Kidneys, Dizziness Fainting Causes, Understanding Bradycardia Admission Data Admit Date/Time: 08/15/24 23:07 Attending Provider: bEen Alvarez Admit Provider: Racquel Alvarado Primary Care Provider: Kailee Longoria Other Providers: Hola Carnes Other Interventions: Discharge Summary Assessment (RN) Last Done: 08/17/24 13:12 Supervising Physician Co-Signing Physician Notes Attending attestation Pt seen and examined in concert with Dr. Retana. In agreement with the documented findings as noted in the resident documentation with any exceptions or additions as noted here. No acute complaints at time of evaluation. Presyncope has resolved with mild independent activity as well as while working with PT in hospital. On examination, S1/S2 nl RRR. CTAB. Abd NT/ND BS+ve Bradycardia in the setting of recent NSTEMI - HR low normal range off metoprolol. Following discussion with cardiology, will discontinue metoprolol and monitor as outpatient. Hypertension - amlodipine reduced to 2.5mg. BP has been 140s-150s/70s since, without return of sx. Encouraged home BP monitoring and follow up with PCP for consideration of escalation to 5mg vs. addition of low dose additional agent based on non-hospitalized measures. Abnormal UA - Asymptomatic, urine cultures negative GERALD on CKDIIIb - resolved following hydration Else see resident documentation as noted. Total attending physician time spent with this patient's care on the day of discharge: 36 minutes. Resident Activity Tracking Resident Involvement: Resident Care Provided Care Provided: Adult Hospital Medicine
== END 2024-08-17 14:12 | disposition home or self-care (01) ==
LOC: 2S 21:05 → ED 21:05 → SUATTDRO 23:07 → 2S 08-16 00:38

== ENCOUNTER 2025-02-23 12:30 | Inpatient (IN) ==
[2025-02-23 13:24] LABS: Basophils # (auto) 0.08 K/uL (0.00-0.20); Eosinophils # (auto) 0.47 K/uL (0.00-0.50); Hematocrit (blood only) 35.5 % (37.0-47.0); Hemoglobin 11.8 g/dl (12.0-16.0); Immature Granulocytes # (auto) 0.06 K/uL (0.01-0.20); Immature Granulocytes % (auto) 0.8 %; Lymphocytes # (auto) 1.04 K/uL (1.20-3.40); Lymphocytes % (auto) 13.2 %; Mean Corpuscular Hgb Conc 33.2 g/dL (32.0-36.0); Mean Corpuscular Volume 90.3 fL (80.0-100.0); Mean Platelet Volume 10.1 fL (9.4-12.4); Monocytes # (auto) 0.44 K/uL (0.11-0.59); Monocytes % (auto) 5.6 %; Neutrophils # (auto) 5.76 K/uL (1.40-6.50); Neutrophils % (auto) 73.4 %; Platelet Count 217 K/uL (130-400); RDW Standard Deviation 46.7 fL (36.4-46.3); Red Blood Count 3.93 M/uL (4.20-5.40); White Blood Count 7.85 K/ul (4.8-10.8)
[2025-02-23 13:40] LABS: Albumin Globulin Ratio 1.8 (0.9-2); Albumin Level 4.4 gm/dl (3.4-5.0); BUN Creatinine Ratio 12.4 (10-20); Bilirubin,Total 0.5 mg/dl (0.2-1.0); Calcium 9.5 mg/dl (8.6-10.3); Creatinine Clr Calc Pharmacy 18.8 ml/min; Globulin 2.4 gm/dl (2.5-4.0); Potassium 4.9 mmol/L (3.5-5.1); Total Protein 6.8 gm/dl (6.0-8.3)
[2025-02-23 13:46] LABS: Troponin I High Sensitivity 9.8 pg/ml (0-14)
[2025-02-23 13:49] LABS: Partial Thromboplastin Time 27 Seconds (21-31); Prothrombin Time 10.6 Seconds (9.0-12.0)
--- NOTE | 2025-02-23 14:02 | XRay Report ---
XR forearm RT 2V, XR wrist RT min 3V routine CLINICAL HISTORY: fall, pain COMPARISON: None FINDINGS: There is an acute nondisplaced fracture at the midshaft of the ulna. No other acute fractu re or dislocation seen at the right forearm or right wrist. There are moderate degenerative changes a t the right wrist. IMPRESSION: Acute fracture midshaft right ulna. ACT 112: Negative or not required by law. Electronically signed by: Darrion Jolly M.D. 02/23/2025 2:00 PM
--- NOTE | 2025-02-23 14:02 | XRay Report ---
XR hip RT 2V w pelvis CLINICAL HISTORY: fall, pain COMPARISON: None FINDINGS: There are degenerative changes at the hips, moderate on the right and severe on the left. There are acute minimally displaced fractures at the right pubis extending into the medial aspect of the right superior and inferior pubic rami. No other acute fracture or dislocation seen. IMPRESSION: Acute fractures at the right pubis and adjacent rami. ACT 112: Negative or not required by law. Electronically signed by: Darrion Jolly M.D. 02/23/2025 2:01 PM
--- NOTE | 2025-02-23 14:04 | XRay Report ---
XR chest 1V portable CLINICAL HISTORY: fall COMPARISON STUDY: 08/15/2024 FINDINGS: There is a likely small hiatal hernia. There is mild cardiomegaly without pulmonary vascula r congestion. Skinfold artifact overlies the left chest. No effusion, consolidation, or pneumothorax seen. IMPRESSION: No acute findings seen. ACT 112: Negative or not required by law. Electronically signed by: Darrion Jolly M.D. 02/23/2025 2:02 PM
--- NOTE | 2025-02-23 14:35 | CT Scan Report ---
EXAM: CT head without contrast PROVIDED HISTORY: Patient fell this a.m. hitting head and right side. No loss of consciousness. COMPARISON: 06/09/2024 TECHNIQUE: Axial CT imaging of the head was performed without the use of IV contrast. Images are presented in axial, sagittal, and coronal reformats. FINDINGS: Diffuse atrophy and moderate symmetric lucencies again seen in the deep white matter tracks, similar to the previous study. No mass, hemorrhage or edema is seen. No midline shift or extra-axial blood/fluid collection is noted. Mastoid and visualized sinuses remain well aerated. No acute abnormality of the bony calvarium is noted. IMPRESSION: 1. Negative for acute intracranial process. 2. 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 Electronically signed by Darrion Liang 02-23-2025 2:35 PM
--- NOTE | 2025-02-23 14:41 | CT Scan Report ---
EXAM: CT cervical spine without contrast PROVIDED HISTORY: Fell this morning hitting head and right side.. COMPARISON: 06/09/2024 TECHNIQUE: Helical CT imaging of the cervical spine was acquired without the use of IV contrast. Images are presented in axial, sagittal, and coronal reformats. FINDINGS: No acute fracture, dislocation or destructive bony process is evident at this time. Moderate degenerative facet arthropathy present from the C3 through the C7 levels with some mild bony neural foraminal encroachments. Desiccation mild diffuse bulging of the C5-6 and C6-7 intervertebral discs are present. There are fairly extensive cervical carotid artery calcifications are present. IMPRESSION: 1. Negative for acute bony trauma. 2. Moderate degenerative spondylosis throughout the mid and lower cervical spine with disc narrowing of the C5-6 and C6-7. Electronically signed by Darrion Liang 02-23-2025 2:41 PM
--- NOTE | 2025-02-23 14:52 | CT Scan Report ---
EXAM: CT chest diagnostic without contrast PROVIDED HISTORY: Patient fell. Hitting head and right side COMPARISON: None TECHNIQUE: Helical CT imaging of the chest was performed without IV contrast. Images are presented in axial, sagittal, and coronal reformats. Axial MIP reconstructions are also provided. FINDINGS: LUNGS:No focal consolidation. There is a groundglass 4 mm nodule centrally in the right middle lobe (axial image #31 of series 3).. No pneumothorax or pleural effusion. Central tracheobronchial tree is patent. HEART/MEDIASTINUM:The heart is normal in size without pericardial effusion. The thoracic aorta and main pulmonary artery are normal in caliber. Extensive atherosclerotic vascular calcifications are present. Thoracic esophagus is unremarkable. Included thyroid gland is unremarkable. No enlarged axillary lymph nodes. UPPER ABDOMEN/SOFT TISSUES: Moderately large hiatal hernia is present.. Soft tissues of the chest wall are unremarkable. BONES:Old right rib fractures identified. No definite acute fracture noted. Moderate degenerative changes in the thoracic spine. IMPRESSION: 1. Negative for acute traumatic abnormality. 2. Extensive calcific atherosclerotic calcifications. 3. 4 mm groundglass nodule in the right middle lobe. Follow-up as per Fleischner Society guidelines Electronically signed by Darrion Liang 02-23-2025 2:52 PM
--- NOTE | 2025-02-23 15:01 | CT Scan Report ---
Exam: CT abdomen/pelvis without contrast. COMPARISON: 09/20/2016. HISTORY: Patient fell. Pain on right side. TECHNIQUE: Standard departmental protocols were used. FINDINGS: Lower Thorax: Large hiatal hernia. Hepatobiliary: Unremarkable on unenhanced images all the sensitivity limited due to lack of contrast. Pancreas: Unremarkable Spleen: Unremarkable Adrenals: Unremarkable Kidneys/Ureters/Bladder: Unremarkable on unenhanced only images. Pelvic Organs: Moderately distended urinary bladder. Calcified uterine fibroids in the nonenlarged uterus Peritoneum/Retroperitoneum: Unremarkable Lymph nodes: Unremarkable Vessels: 3.1 cm infrarenal abdominal aortic aneurysm. GI tract: Increased colon. Diverticulosis. Bones and soft tissue: Negative for acute bony trauma. DJD. IMPRESSION: 1. Negative for acute traumatic abnormality. 2. Large hiatal hernia. 3. Calcified uterine fibroid. 4. Diverticulosis. 5. 3.1 cm abdominal aortic aneurysm. 6. Moderately distended urinary bladder. . Electronically signed by Darrion Liang 02-23-2025 3:01 PM
--- NOTE | 2025-02-23 15:34 | Emergency Department Note ---
Impression & Plan Fall, Closed pelvic ring fracture, Fracture of right ulna ED Provider Note Provider: Michel Crowley MD CHIEF COMPLAINT: Fall, pain HISTORY OF PRESENT ILLNESS: Patient is a 89-year-old female history of cardiac disease and GERD who felt lightheaded in the kitchen this morning fell. Hit her head on the chair and landed on her right arm and hip in the chair. Denies headache or loss of consciousness. No blood thinner use reported. Reports significant pain in the right hip region as well as pain in the right arm. Denies headache or dizziness. Denies chest pain or shortness of breath. Denies other abdominal pain or nauseousness pain around the right hip and flank region. Denies injury to the lower extremities otherwise. No numbness or tingling reported. Denies history of lightheadedness or faintness. Denies of palpitations to her recollection. Pain in the right hip does radiate to the groin some. Unable to ambulate due to pain here. PAST MEDICAL HISTORY: As noted above MEDICATIONS: Reviewed home medications SOCIAL HISTORY: PHYSICAL EXAM: GENERAL: alert and oriented in no acute distress on stretcher Head: normocephalic and atraumatic EYES: No injection, discharge or icterus. PERRL, EOMI. NECK: Trachea midline. Supple without midline cervical tenderness ENT: Mucous membranes pink and moist. Pharynx without erythema or exudate. LUNGS: Airway patent. No retractions. Breath sounds clear with good air entry bilaterally. HEART: Regular bradycardic rate and rhythm. No chest wall tenderness ABDOMEN: Soft and non-tender, without guarding or rebound. Stable pelvis with some pain in the right inguinal and hip region. SKIN: Acyanotic, warm, dry, without rashes EXTREMITIES: Without swelling, tenderness or deformity with pain and approximately 2 x 4 cm hematoma the mid right forearm. Good range of motion of the right hand, fingers, elbow, and and shoulder with soft compartments noted. NEUROLOGICAL: No focal deficits. No aphasia. No facial droop or slurred speech. Normal strength and tone in the extremities. Sensation to gross touch normal. EK bpm sinus bradycardia occasional PVC. QTc 453. No clear acute ST segment elevation or depression. CONTINUOUS CARDIAC MONITORING: was ordered and showed a heart rate of 50s bpm in sinus bradycardia GCS 15. Patient's laboratory studies and imaging reviewed. Differential includes Fracture, dislocation, contusion, intra-abdominal, pneumothorax, intrathoracic, intracranial, neurologic, compartment syndrome, rhabdomyolysis, as well as other pathologies. IMPRESSION/MEDICAL DECISION MAKING: Primary and secondary survey completed. Airway breathing intact. No cervical spine tenderness. Evidence of tenderness and some hematoma to the right forearm as well as some pain in the right hip and pelvic region. No anticoagulant usage. X-rays obtained show evidence of a mid ulnar fracture without significant displacement as well as evidence of a right pelvic fracture. No other significant trauma reported on CT scans by radiologist report. Basic blood work obtained here and EKG obtained without evidence of significant anemia, leukocytosis, electrolyte abnormality, and stable CKD. Troponin and CK normal. No evidence concerning for compartment syndrome. Patient given some fentanyl for pain. Updated patient at bedside findings. Discussed with her staying for further pain control. Do not believe the patient is unstable or requiring surgery for the pelvic fracture at this time and will bring in for further care. Did discuss with radiology who initially did not comment on the pelvic fracture on CT scan. Negative cervical spine scan for cervical clearance at 2:49 PM. Discussed with the hospitalist team. Splint of the posterior right arm placed and given her restriction to the left arm due to prior mastectomy and the IV placement of the right arm will only utilize a posterior splint at this time leaving the AC open for the IV usage. Again no evidence of compartment syndrome. No large open wounds and no evidence of open fracture. DIAGNOSIS: Fall, right ulnar fracture, right inferior and superior rami pelvic fracture, episode of lightheadedness DISPOSITION: Hospitalist will evaluate Patient was agreeable with this plan. PROCEDURE: splint placement Indications for procedure: Mid ulnar fracture Description of the procedure: Long posterior orthoglass splint was placed on the patient's right upper extremity. Neurovascular status was intact after placement of the splint. IV site was left exposed for use. PATIENT CONDITION AFTER PROCEDURE: good Past Med/Surg History Problem List Fracture of right ulna (Acute) Closed pelvic ring fracture (Acute) Acute dehydration (Acute) Pre-syncope (Acute) Bradycardia (Acute) GERALD (acute kidney injury) (Acute) Dizziness (Acute) Pre-syncope Bradycardia Elevated troponin (Acute) Non-STEMI (non-ST elevated myocardial infarction) (Acute) Jaw pain (Acute) Headache (Acute) Fall (Acute) Tick bite (Acute) Rectal bleeding Rectal prolapse (Chronic) Encounter for pre-operative examination Osteoarthritis GERD (gastroesophageal reflux disease) controlled Cancer L BREAST, DOUBLE MASTECTOMY - CHEMO (2015) Hx of mastectomy BILATERAL Hx of cornea transplant BL Medical History Abnormal urinalysis CKD stage 3b, GFR 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 Drug reaction GERALD (acute kidney injury) Hypertension Limb alert care status Osteoporosis Surgical History Hx of colonoscopy History of left knee replacement H/O cataract removal with insertion of prosthetic lens Family History Other Family history of diabetes mellitus Denies family history of Ovarian cancer Breast cancer Colorectal cancer Social History Smoking Status: Never smoker Second Hand Exposure: No; Do You Dip or Chew Tobacco: No; Hx Alcohol Use: No Hx Substance Use: No Preferred Language: Yakut Communication Ability: Effective Visual Impairment: No Limitations Licensed Veterinary Technician Required: No Beliefs That Will Affect Care: None Current Living Situation: Spouse Feels Safe at Home: Yes Assistive Devices: None Allergies Allergies Allergy/AdvReac Type Severity Reaction Status Date / Time morphine Allergy Unknown RASH Verified 01/16/25 11:32 terazosin Allergy Verified 01/16/25 11:32 Home Meds Home Medications Medication Instructions Recorded Confirmed denosumab 60 mg/mL subcutaneous 60 mg subcut .EVERY 6 MONTHS 04/11/19 01/16/25 syringe (Prolia) fluorometholone 0.1 % eye 1 drp OPB 3XWK 04/11/19 02/23/25 drops,suspension ondansetron 4 mg disintegrating 4 mg translingual DAILY PRN Nausea 11/25/22 02/23/25 tablet paroxetine HCl 10 mg tablet 10 mg PO DAILY 11/25/22 02/23/25 omeprazole 40 mg capsule,delayed 40 mg PO DAILY 06/09/24 02/23/25 release atorvastatin 40 mg tablet 40 mg PO HS 08/15/24 02/23/25 amlodipine 10 mg tablet 10 mg PO DAILY 01/16/25 02/23/25 cyanocobalamin (vitamin B-12) 2,000 mcg PO DAILY 02/23/25 02/23/25 1,000 mcg tablet metoprolol succinate 25 mg 25 mg PO HS 02/23/25 02/23/25 tablet,extended release 24 hr Previous Rx's Medication Instructions Recorded aspirin 81 mg tablet,delayed 81 mg PO DAILY #30 tabs 06/10/24 release (Adult Low Dose Aspirin) lisinopril 10 mg tablet 10 mg PO DAILY #30 tabs 06/10/24 Results & Data (ED) Vital Signs Vital Signs - 24 hr 02/23/25 12:20 02/23/25 12:50 02/23/25 12:53 Temperature 37.0 C Temperature Source Oral Pulse Rate 54 L 56 L Pulse Rate [Left] 56 L Pulse Rate from SpO2 Sensor Respiratory Rate 20 20 Blood Pressure 128/87 Blood Pressure [Left Arm] 130/72 Blood Pressure Mean 100 Blood Pressure Mean [Left Arm] 91 Pulse Oximetry 96 96 Oxygen Delivery Method Room Air Room Air Oxygen Flow Rate Sepsis Recent Fever Within 48 Hours No Sepsis New/Unexplained Change in Mental Status N/A Sepsis Action Taken by Nursing No Action Required 02/23/25 13:00 02/23/25 13:06 02/23/25 13:15 Temperature Temperature Source Pulse Rate 51 L 54 L Pulse Rate [Left] Pulse Rate from SpO2 Sensor 50 L 54 L Respiratory Rate 19 23 Blood Pressure Blood Pressure [Left Arm] Blood Pressure Mean Blood Pressure Mean [Left Arm] Pulse Oximetry 96 94 93 Oxygen Delivery Method Room Air Oxygen Flow Rate Sepsis Recent Fever Within 48 Hours Sepsis New/Unexplained Change in Mental Status Sepsis Action Taken by Nursing 02/23/25 13:30 02/23/25 13:51 02/23/25 14:21 Temperature Temperature Source Pulse Rate 57 L 52 L 52 L Pulse Rate [Left] Pulse Rate from SpO2 Sensor 48 L 51 L 54 L Respiratory Rate 30 H 16 16 Blood Pressure Blood Pressure [Left Arm] Blood Pressure Mean Blood Pressure Mean [Left Arm] Pulse Oximetry 93 91 93 Oxygen Delivery Method Oxygen Flow Rate Sepsis Recent Fever Within 48 Hours Sepsis New/Unexplained Change in Mental Status Sepsis Action Taken by Nursing 02/23/25 14:21 02/23/25 14:21 02/23/25 14:30 Temperature Temperature Source Pulse Rate Pulse Rate [Left] Pulse Rate from SpO2 Sensor Respiratory Rate Blood Pressure 155/63 H 155/63 H 144/71 H Blood Pressure [Left Arm] Blood Pressure Mean 85 85 106 Blood Pressure Mean [Left Arm] Pulse Oximetry Oxygen Delivery Method Oxygen Flow Rate Sepsis Recent Fever Within 48 Hours Sepsis New/Unexplained Change in Mental Status Sepsis Action Taken by Nursing 02/23/25 14:30 02/23/25 14:33 02/23/25 15:00 Temperature Temperature Source Pulse Rate 50 L Pulse Rate [Left] Pulse Rate from SpO2 Sensor 51 L Respiratory Rate 14 Blood Pressure 144/71 H 121/72 Blood Pressure [Left Arm] Blood Pressure Mean 106 89 Blood Pressure Mean [Left Arm] Pulse Oximetry 97 Oxygen Delivery Method Oxygen Flow Rate Sepsis Recent Fever Within 48 Hours Sepsis New/Unexplained Change in Mental Status Sepsis Action Taken by Nursing 02/23/25 15:00 02/23/25 15:24 02/23/25 15:30 Temperature Temperature Source Pulse Rate 54 L Pulse Rate [Left] Pulse Rate from SpO2 Sensor 54 L Respiratory Rate 19 Blood Pressure 121/72 151/75 H Blood Pressure [Left Arm] Blood Pressure Mean 89 107 Blood Pressure Mean [Left Arm] Pulse Oximetry 98 Oxygen Delivery Method Oxygen Flow Rate Sepsis Recent Fever Within 48 Hours Sepsis New/Unexplained Change in Mental Status Sepsis Action Taken by Nursing 02/23/25 15:30 02/23/25 15:30 02/23/25 15:37 Temperature Temperature Source Pulse Rate 53 L Pulse Rate [Left] 57 L Pulse Rate from SpO2 Sensor 52 L Respiratory Rate 15 20 Blood Pressure 151/75 H Blood Pressure [Left Arm] 151/75 H Blood Pressure Mean 107 Blood Pressure Mean [Left Arm] 100 Pulse Oximetry 98 95 Oxygen Delivery Method Nasal Cannula Oxygen Flow Rate 2 Sepsis Recent Fever Within 48 Hours Sepsis New/Unexplained Change in Mental Status Sepsis Action Taken by Nursing 02/23/25 15:37 02/23/25 15:37 02/23/25 15:48 Temperature 36.9 C Temperature Source Pulse Rate 55 L 55 L Pulse Rate [Left] Pulse Rate from SpO2 Sensor Respiratory Rate 20 17 Blood Pressure 151/75 H Blood Pressure [Left Arm] Blood Pressure Mean Blood Pressure Mean [Left Arm] Pulse Oximetry 96 Oxygen Delivery Method Room Air Room Air Oxygen Flow Rate 0 96 Sepsis Recent Fever Within 48 Hours Sepsis New/Unexplained Change in Mental Status Sepsis Action Taken by Nursing 02/23/25 15:51 02/23/25 16:00 Temperature Temperature Source Pulse Rate 56 L 56 L Pulse Rate [Left] Pulse Rate from SpO2 Sensor 53 L Respiratory Rate 19 14 Blood Pressure Blood Pressure [Left Arm] Blood Pressure Mean Blood Pressure Mean [Left Arm] Pulse Oximetry 95 Oxygen Delivery Method Oxygen Flow Rate Sepsis Recent Fever Within 48 Hours Sepsis New/Unexplained Change in Mental Status Sepsis Action Taken by Nursing Laboratory Data 02/23/25 12:57 02/23/25 12:57 Lab Results 02/23/25 Range/Units 12:57 WBC 7.85 (4.8-10.8) K/ul RBC 3.93 L (4.20-5.40) M/uL Hgb 11.8 L (12.0-16.0) g/dl Hct 35.5 L (37.0-47.0) % MCV 90.3 (80.0-100.0) fL MCH 30.0 (25.0-34.0) pg MCHC 33.2 (32.0-36.0) g/dL RDW Std Deviation 46.7 H (36.4-46.3) fL RDW Coeff of Manfred 14.0 (11.5-14.5) % Plt Count 217 (130-400) K/uL MPV 10.1 (9.4-12.4) fL Immature Gran % (Auto) 0.8 % Neut % (Auto) 73.4 % Lymph % (Auto) 13.2 % [place] % (Auto) 5.6 % Eos % (Auto) 6.0 % Baso % (Auto) 1.0 % Neut # (Auto) 5.76 (1.40-6.50) K/uL Lymph # (Auto) 1.04 L (1.20-3.40) K/uL [place] # (Auto) 0.44 (0.11-0.59) K/uL Eos # (Auto) 0.47 (0.00-0.50) K/uL Baso # (Auto) 0.08 (0.00-0.20) K/uL Immature Gran # (Auto) 0.06 (0.01-0.20) K/uL PT 10.6 (9.0-12.0) Seconds INR 1.0 (0.9-1.1) APTT 27 (21-31) Seconds PTT Ratio 1.0 Sodium 132 L (136-145) mmol/L Potassium 4.9 (3.5-5.1) mmol/L Chloride 99 (98-107) mmol/L Carbon Dioxide 29 (21-32) mmol/L Anion Gap 4 (3-11) BUN 19 (6-23) mg/dl Creatinine 1.53 H (0.6-1.2) mg/dl Est Cr Clr Drug Dosing 18.8 ml/min eGFR 32.33 BUN/Creatinine Ratio 12.4 (10-20) Glucose 107 H (70-99(Fasting)) mg/dl Calcium 9.5 (8.6-10.3) mg/dl Magnesium 2.0 (1.7-2.4) mg/dl Total Bilirubin 0.5 (0.2-1.0) mg/dl AST 23 (13-39) U/L ALT 17 (7-52) U/L Alkaline Phosphatase 59 (34-104) U/L Total Creatine Kinase 102 (26-192) U/L Troponin I High Sens 9.8 (0-14) pg/ml Total Protein 6.8 (6.0-8.3) gm/dl Albumin 4.4 (3.4-5.0) gm/dl Globulin 2.4 L (2.5-4.0) gm/dl Albumin/Globulin Ratio 1.8 (0.9-2) Administered Medications Discontinued Medications Fentanyl Citrate (Fentanyl Citrate Pf 100 Mcg/2 Ml Vial) 25 mcg IV NOW STA Stop: 02/23/25 13:13 Last Admin: 02/23/25 13:22 Dose: 25 mcg Documented By: ROGERS Fentanyl Citrate (Fentanyl Citrate Pf 100 Mcg/2 Ml Vial) 25 mcg IV NOW STA Stop: 02/23/25 15:32 Last Admin: 02/23/25 15:38 Dose: 25 mcg Documented By: ASW Imaging Data Radiologist's Impression: Chest X-Ray 02/23/25 13:00 XR chest 1V portable CLINICAL HISTORY: fall COMPARISON STUDY: 08/15/2024 FINDINGS: There is a likely small hiatal hernia. There is mild cardiomegaly without pulmonary vascular congestion. [place] artifact overlies the left chest. No effusion, consolidation, or pneumothorax seen. IMPRESSION: No acute findings seen. ACT 112: Negative or not required by law. Electronically signed by: Darrion Jolly M.D. 02/23/2025 2:02 PM Forearm X-Ray 02/23/25 13:00 XR forearm RT 2V, XR wrist RT min 3V routine CLINICAL HISTORY: fall, pain COMPARISON: None FINDINGS: There is an acute nondisplaced fracture at the midshaft of the ulna. No other acute fracture or dislocation seen at the right forearm or right wrist. There are moderate degenerative changes at the right wrist. IMPRESSION: Acute fracture midshaft right ulna. ACT 112: Negative or not required by law. Electronically signed by: Darrion Jolly M.D. 02/23/2025 2:00 PM Hip/Pelvis X-Ray 02/23/25 13:00 XR hip RT 2V w pelvis CLINICAL HISTORY: fall, pain COMPARISON: None FINDINGS: There are degenerative changes at the hips, moderate on the right and severe on the left. There are acute minimally displaced fractures at the right pubis extending into the medial aspect of the right superior and inferior pubic rami. No other acute fracture or dislocation seen. IMPRESSION: Acute fractures at the right pubis and adjacent rami. ACT 112: Negative or not required by law. Electronically signed by: Darrion Jolly M.D. 02/23/2025 2:01 PM Abdomen/Pelvis CT 02/23/25 13:11 Exam: CT abdomen/pelvis without contrast. COMPARISON: 09/20/2016. HISTORY: Patient fell. Pain on right side. TECHNIQUE: Standard departmental protocols were used. FINDINGS: Lower Thorax: Large hiatal hernia. Hepatobiliary: Unremarkable on unenhanced images all the sensitivity limited due to lack of contrast. Pancreas: Unremarkable Spleen: Unremarkable Adrenals: Unremarkable Kidneys/Ureters/Bladder: Unremarkable on unenhanced only images. Pelvic Organs: Moderately distended urinary bladder. Calcified uterine fibroids in the nonenlarged uterus Peritoneum/Retroperitoneum: Unremarkable Lymph nodes: Unremarkable Vessels: 3.1 cm infrarenal abdominal aortic aneurysm. GI tract: Increased colon. Diverticulosis. Bones and soft tissue: Negative for acute bony trauma. DJD. IMPRESSION: 1. Negative for acute traumatic abnormality. 2. Large hiatal hernia. 3. Calcified uterine fibroid. 4. Diverticulosis. 5. 3.1 cm abdominal aortic aneurysm. 6. Moderately distended urinary bladder. . Electronically signed by Darrion Liang 02-23-2025 3:[address] 02/23/25 13:11 EXAM: CT cervical spine without contrast PROVIDED HISTORY: Fell this morning hitting head and right side.. COMPARISON: 06/09/2024 TECHNIQUE: Helical CT imaging of the cervical spine was acquired without the use of IV contrast. Images are presented in axial, sagittal, and coronal reformats. FINDINGS: No acute fracture, dislocation or destructive bony process is evident at this time. Moderate degenerative facet arthropathy present from the C3 through the C7 levels with some mild bony neural foraminal encroachments. Desiccation mild diffuse bulging of the C5-6 and C6-7 intervertebral discs are present. There are fairly extensive cervical carotid artery calcifications are present. IMPRESSION: 1. Negative for acute bony trauma. 2. Moderate degenerative spondylosis throughout the mid and lower cervical spine with disc narrowing of the C5-6 and C6-7. Electronically signed by Darrion Liang 02-23-2025 2:[address] 02/23/25 13:11 EXAM: CT chest diagnostic without contrast PROVIDED HISTORY: Patient fell. Hitting head and right side COMPARISON: None TECHNIQUE: Helical CT imaging of the chest was performed without IV contrast. Images are presented in axial, sagittal, and coronal reformats. Axial MIP reconstructions are also provided. FINDINGS: LUNGS:No focal consolidation. There is a groundglass 4 mm nodule centrally in the right middle lobe (axial image #31 of series 3).. No pneumothorax or pleural effusion. Central tracheobronchial tree is patent. HEART/MEDIASTINUM:The heart is normal in size without pericardial effusion. The thoracic aorta and main pulmonary artery are normal in caliber. Extensive atherosclerotic vascular calcifications are present. Thoracic esophagus is unremarkable. Included thyroid gland is unremarkable. No enlarged axillary lymph nodes. UPPER ABDOMEN/SOFT TISSUES: Moderately large hiatal hernia is present.. Soft tissues of the chest wall are unremarkable. BONES:Old right rib fractures identified. No definite acute fracture noted. Moderate degenerative changes in the thoracic spine. IMPRESSION: 1. Negative for acute traumatic abnormality. 2. Extensive calcific atherosclerotic calcifications. 3. 4 mm groundglass nodule in the right middle lobe. Follow-up as per Fleischner Society guidelines Electronically signed by Darrion Liang 02-23-2025 2:[address] 02/23/25 13:11 EXAM: CT head without contrast PROVIDED HISTORY: Patient fell this a.m. hitting head and right side. No loss of consciousness. COMPARISON: 06/09/2024 TECHNIQUE: Axial CT imaging of the head was performed without the use of IV contrast. Images are presented in axial, sagittal, and coronal reformats. FINDINGS: Diffuse atrophy and moderate symmetric lucencies again seen in the deep white matter tracks, similar to the previous study. No mass, hemorrhage or edema is seen. No midline shift or extra-axial blood/fluid collection is noted. Mastoid and visualized sinuses remain well aerated. No acute abnormality of the bony calvarium is noted. IMPRESSION: 1. Negative for acute intracranial process. 2. 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 Electronically signed by Darrion Liang 02-23-2025 2:35 PM Wrist X-Ray 02/23/25 13:11 XR forearm RT 2V, XR wrist RT min 3V routine CLINICAL HISTORY: fall, pain COMPARISON: None FINDINGS: There is an acute nondisplaced fracture at the midshaft of the ulna. No other acute fracture or dislocation seen at the right forearm or right wrist. There are moderate degenerative changes at the right wrist. IMPRESSION: Acute fracture midshaft right ulna. ACT 112: Negative or not required by law. Electronically signed by: Darrion Jolly M.D. 02/23/2025 2:00 PM Discharge Plan Visit Data Chief Complaint: Trauma Stated Complaint: FALL, HIP PAIN ED Provider: Michel Crowley Discharge Problem: Fall, Closed pelvic ring fracture, Fracture of right ulna Patient Disposition: Being Evaluated by Hospitalist Condition: Fair Forms Stand Alone Forms: My [facility] Prescriptions Prescriptions: No Action amlodipine 10 mg tablet 10 mg PO DAILY fluorometholone 0.1 % Drops,Suspension 1 drp OPB 3XWK Rx Instructions: mon/wed/fri Prolia 60 mg/mL Syringe 60 mg SUBCUT .EVERY 6 MONTHS Rx Instructions: UNABLE TO VERIFY paroxetine HCl 10 mg tablet 10 mg PO DAILY ondansetron 4 mg tablet,disintegrating 4 mg translingual DAILY PRN (Reason: Nausea) omeprazole 40 mg capsule,delayed release(DR/EC) 40 mg PO DAILY lisinopril 10 mg tablet 10 mg PO DAILY Qty: 30 0RF aspirin [Adult Low Dose Aspirin] 81 mg tablet,delayed release (DR/EC) 81 mg PO DAILY Qty: 30 0RF atorvastatin 40 mg tablet 40 mg PO HS cyanocobalamin (vitamin B-12) 1,000 mcg tablet 2,000 mcg PO DAILY metoprolol succinate 25 mg tablet extended release 24 hr 25 mg PO HS Referrals Referrals: Kailee Longoria MD [Primary Care Provider] - Discharge Problem: Fall Qualifiers: Encounter type: initial encounter Qualified Code(s): W19.XXXA - Unspecified fall, initial encounter Closed pelvic ring fracture Qualifiers: Encounter type: initial encounter Qualified Code(s): S32.810A - Multiple fractures of pelvis with stable disruption of pelvic ring, initial encounter for closed fracture Fracture of right ulna Qualifiers: Encounter type: initial encounter Ulna location: shaft Fracture type: closed
--- NOTE | 2025-02-23 17:19 | History & Physical Report ---
Date of Service February 23, 2025 Assessment & Plan (1) Fracture of right ulna: (2) Closed pelvic ring fracture: (3) Pre-syncope: Plan 89-year-old female with a history of dehydration leading to syncope in the past presented with dizziness, no loss of consciousness, fall and was found to have right ulnar fracture and right pelvis fracture. 1. Right ulnar fracture Arm in a cast Consult orthopedics 2. Right pelvis fracture Likely nonoperative Consult orthopedics Will consult PT/OT after orthopedics evaluation 3. Dizziness/presyncope The patient did not lost consciousness She woke up feeling dizzy and it was postural when she stood up from sitting position. The second spell was when she turned her head in a compact space, lost her balance and fell. Her story is suggestive of vasovagal rather than vertigo Check orthostatic vital signs May consider ordering an echocardiogram The patient has a history of syncope due to dehydration when she was admitted last August She is on 2 blood pressure medications at home. Will hold amlodipine but continue metoprolol. Monitor on telemetry 4. Benign essential hypertension The patient is on 2 blood pressure medications at home. Will hold the amlodipine but continue metoprolol 4. GERD/history of rectal bleeding Continue PPI 6. Obstructive sleep apnea Patient does not use CPAP at home Watch for hypoxia at night Full code DVT prophylaxis: Lovenox History of Present Illness Chief Complaint: Fall Primary Care Provider: Kailee Longoria MD This is an 89-year-old female with a history of syncope in August due to dehydration, benign essential hypertension on 3 medications, history of breast cancer, GERD, obstructive sleep apnea (does not use CPAP), CKD stage III, presented with dizziness followed by a fall. She did not pass out this time. She fell on a chair. Her called the ambulance that brought her to the emergency room. She was multiple imaging done that showed a right ulnar fracture and a right pubic ramus fracture. She is being admitted for medical management, pain control and physical therapy. On further questioning about the dizziness, she revealed that this morning when she woke up from bed, she felt dizzy standing up from a sitting position. She was thinking of taking her "dizziness" medicine and thus came down to the kitchen cabinet. When she turned in the small space between the microwave and the sink, she felt dizzy again and fell. This time she did not pass out but she fell on a chair. She describes her dizziness as a feeling of wooziness like her eyes are going to close. She does not describe it as feeling like the room is spinning or the floor is moving. Patient complains of a little bit of pain in her groin only when she moves. Her right arm pain has resolved since they put it in a cast. When she is on bedrest, she is not in any pain. She says that she does not think she is a llergic to morphine. Allergies Allergy/AdvReac Type Severity Reaction Status Date / Time morphine Allergy Unknown RASH Verified 01/16/25 11:32 terazosin Allergy Verified 01/16/25 11:32 Home Medications Medication Instructions Recorded Confirmed Type denosumab 60 mg/mL subcutaneous 60 mg subcut .EVERY 6 MONTHS 04/11/19 01/16/25 History syringe (Prolia) fluorometholone 0.1 % eye 1 drp OPB [id number] 04/11/19 02/23/25 History drops,suspension ondansetron 4 mg disintegrating 4 mg translingual DAILY PRN Nausea 11/25/22 02/23/25 History tablet paroxetine HCl 10 mg tablet 10 mg PO DAILY 11/25/22 02/23/25 History omeprazole 40 mg capsule,delayed 40 mg PO DAILY 06/09/24 02/23/25 History release aspirin 81 mg tablet,delayed 81 mg PO DAILY #30 tabs 06/10/24 01/16/25 Rx release (Adult Low Dose Aspirin) lisinopril 10 mg tablet 10 mg PO DAILY #30 tabs 06/10/24 02/23/25 Rx atorvastatin 40 mg tablet 40 mg PO HS 08/15/24 02/23/25 History amlodipine 10 mg tablet 10 mg PO DAILY 01/16/25 02/23/25 History cyanocobalamin (vitamin B-12) 2,000 mcg PO DAILY 02/23/25 02/23/25 History 1,000 mcg tablet metoprolol succinate 25 mg 25 mg PO HS 02/23/25 02/23/25 History tablet,extended release 24 hr Past Med/Surg History Problem List Fracture of right ulna (Acute) Closed pelvic ring fracture (Acute) Acute dehydration (Acute) Pre-syncope (Acute) Bradycardia (Acute) GERALD (acute kidney injury) (Acute) Dizziness (Acute) Pre-syncope Bradycardia Elevated troponin (Acute) Non-STEMI (non-ST elevated myocardial infarction) (Acute) Jaw pain (Acute) Headache (Acute) Fall (Acute) Tick bite (Acute) Rectal bleeding Rectal prolapse (Chronic) Encounter for pre-operative examination Osteoarthritis GERD (gastroesophageal reflux disease) controlled Cancer L BREAST, DOUBLE MASTECTOMY - CHEMO (2016) Hx of mastectomy BILATERAL Hx of cornea transplant BL Medical History Abnormal urinalysis CKD stage 3b, GFR 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 Drug reaction GERALD (acute kidney injury) Hypertension Limb alert care status LUE Osteoporosis Surgical History Hx of colonoscopy History of left knee replacement H/O cataract removal with insertion of prosthetic lens bilateral Family History Other Family history of diabetes mellitus Denies family history of Ovarian cancer Breast cancer Colorectal cancer Social History Smoking Status: Never smoker Second Hand Exposure: No; Do You Dip or Chew Tobacco: No; Hx Alcohol Use: No Hx Substance Use: No Preferred Language: Salvadorean Communication Ability: Effective Visual Impairment: No Limitations Air Pumper Required: No Beliefs That Will Affect Care: None Current Living Situation: Spouse Feels Safe at Home: Yes Assistive Devices: None Review of Systems Review of Systems: All systems reviewed & are unremarkable except as noted in Subjective Physical Exam Physical Exam: General appearance: Awake, conversant, able to answer questions appropriately. AOx3. Pupils: Equally reactive to light and accommodation Neck: No masses, no thyromegaly Respiration: Clear to auscultation bilaterally. Normal effort Cardiovascular: S1-S2/regular rate and rhythm. No murmur, rubs or gallop. No edema. Abdomen: Soft, nontender, nondistended. No hepatosplenomegaly Musculoskeletal: No clubbing, no cyanosis. Right arm in cast Skin: No rashes, no nodules Neuro exam: Cranial nerves intact, sensation grossly intact Psychiatric: Patient has good judgment and insight. AOx3. Mood and affect appear normal Lymphatics: No cervical or axillary lymphadenopathy noted Results & Data Results & Data Vital Signs (Past 12 Hours) Vital Signs Temp Pulse Pulse Resp BP BP Pulse Ox 02/23/25 17:10 57 L 02/23/25 17:00 56 L 20 165/70 H 98 02/23/25 16:37 66 20 149/68 H 96 02/23/25 16:00 56 L 14 95 02/23/25 15:51 56 L 19 02/23/25 15:48 55 L 17 02/23/25 15:37 02/23/25 15:37 36.9 C 55 L 20 151/75 H 96 02/23/25 15:37 57 L 20 151/75 H 95 02/23/25 15:30 53 L 15 98 02/23/25 15:30 151/75 H 02/23/25 15:30 151/75 H 02/23/25 15:24 54 L 19 98 02/23/25 15:00 121/72 02/23/25 15:00 121/72 02/23/25 14:33 50 L 14 97 02/23/25 14:30 144/71 H 02/23/25 14:30 144/71 H 02/23/25 14:21 155/63 H 02/23/25 14:21 155/63 H 02/23/25 14:21 52 L 16 93 02/23/25 13:51 52 L 16 91 02/23/25 13:30 57 L 30 H 93 02/23/25 13:15 54 L 23 93 02/23/25 13:06 51 L 19 94 02/23/25 13:00 96 02/23/25 12:53 56 L 02/23/25 12:50 56 L 20 130/72 96 02/23/25 12:20 37.0 C 54 L 20 128/87 96 O2 Del Method O2 Flow Rate 02/23/25 17:10 02/23/25 17:00 Nasal Cannula 2 02/23/25 16:37 Room Air 02/23/25 16:00 02/23/25 15:51 02/23/25 15:48 02/23/25 15:37 Room Air 96 02/23/25 15:37 Room Air 0 02/23/25 15:37 Nasal Cannula 2 02/23/25 15:30 02/23/25 15:30 02/23/25 15:30 02/23/25 15:24 02/23/25 15:00 02/23/25 15:00 02/23/25 14:33 02/23/25 14:30 02/23/25 14:30 02/23/25 14:21 02/23/25 14:21 02/23/25 14:21 02/23/25 13:51 02/23/25 13:30 02/23/25 13:15 02/23/25 13:06 02/23/25 13:00 Room Air 02/23/25 12:53 02/23/25 12:50 Room Air 02/23/25 12:20 Room Air Laboratory Results Abnormal lab results 02/23/25 Range/Units 12:57 RBC 3.93 L (4.20-5.40) M/uL Hgb 11.8 L (12.0-16.0) g/dl Hct 35.5 L (37.0-47.0) % RDW Std Deviation 46.7 H (36.4-46.3) fL Lymph # (Auto) 1.04 L (1.20-3.40) K/uL Sodium 132 L (136-145) mmol/L Creatinine 1.53 H (0.6-1.2) mg/dl Glucose 107 H (70-99(Fasting)) mg/dl Globulin 2.4 L (2.5-4.0) gm/dl Diagnostic Findings Chest X-Ray 02/23/25 13:00 XR chest 1V portable CLINICAL HISTORY: fall COMPARISON STUDY: 08/15/2024 FINDINGS: There is a likely small hiatal hernia. There is mild cardiomegaly without pulmonary vascular congestion. Skinfold artifact overlies the left chest. No effusion, consolidation, or pneumothorax seen. IMPRESSION: No acute findings seen. ACT 112: Negative or not required by law. Electronically signed by: Darrion Jolly M.D. 02/23/2025 2:02 PM Forearm X-Ray 02/23/25 13:00 XR forearm RT 2V, XR wrist RT min 3V routine CLINICAL HISTORY: fall, pain COMPARISON: None FINDINGS: There is an acute nondisplaced fracture at the midshaft of the ulna. No other acute fracture or dislocation seen at the right forearm or right wrist. There are moderate degenerative changes at the right wrist. IMPRESSION: Acute fracture midshaft right ulna. ACT 112: Negative or not required by law. Electronically signed by: Darrion Jolly M.D. 02/23/2025 2:00 PM Hip/Pelvis X-Ray 02/23/25 13:00 XR hip RT 2V w pelvis CLINICAL HISTORY: fall, pain COMPARISON: None FINDINGS: There are degenerative changes at the hips, moderate on the right and severe on the left. There are acute minimally displaced fractures at the right pubis extending into the medial aspect of the right superior and inferior pubic rami. No other acute fracture or dislocation seen. IMPRESSION: Acute fractures at the right pubis and adjacent rami. ACT 112: Negative or not required by law. Electronically signed by: Darrion Jolly M.D. 02/23/2025 2:01 PM Abdomen/Pelvis CT 02/23/25 13:11 Exam: CT abdomen/pelvis without contrast. COMPARISON: 09/20/2016. HISTORY: Patient fell. Pain on right side. TECHNIQUE: Standard departmental protocols were used. FINDINGS: Lower Thorax: Large hiatal hernia. Hepatobiliary: Unremarkable on unenhanced images all the sensitivity limited due to lack of contrast. Pancreas: Unremarkable Spleen: Unremarkable Adrenals: Unremarkable Kidneys/Ureters/Bladder: Unremarkable on unenhanced only images. Pelvic Organs: Moderately distended urinary bladder. Calcified uterine fibroids in the nonenlarged uterus Peritoneum/Retroperitoneum: Unremarkable Lymph nodes: Unremarkable Vessels: 3.1 cm infrarenal abdominal aortic aneurysm. GI tract: Increased colon. Diverticulosis. Bones and soft tissue: Negative for acute bony trauma. DJD. IMPRESSION: 1. Negative for acute traumatic abnormality. 2. Large hiatal hernia. 3. Calcified uterine fibroid. 4. Diverticulosis. 5. 3.1 cm abdominal aortic aneurysm. 6. Moderately distended urinary bladder. . Electronically signed by Darrion Liang 02-23-2025 3:[address] 02/23/25 13:11 EXAM: CT cervical spine without contrast PROVIDED HISTORY: Fell this morning hitting head and right side.. COMPARISON: 06/09/2024 TECHNIQUE: Helical CT imaging of the cervical spine was acquired without the use of IV contrast. Images are presented in axial, sagittal, and coronal reformats. FINDINGS: No acute fracture, dislocation or destructive bony process is evident at this time. Moderate degenerative facet arthropathy present from the C3 through the C7 levels with some mild bony neural foraminal encroachments. Desiccation mild diffuse bulging of the C5-6 and C6-7 intervertebral discs are present. There are fairly extensive cervical carotid artery calcifications are present. IMPRESSION: 1. Negative for acute bony trauma. 2. Moderate degenerative spondylosis throughout the mid and lower cervical spine with disc narrowing of the C5-6 and C6-7. Electronically signed by Darrion Liang 02-23-2025 2:[address] 02/23/25 13:11 EXAM: CT chest diagnostic without contrast PROVIDED HISTORY: Patient fell. Hitting head and right side COMPARISON: None TECHNIQUE: Helical CT imaging of the chest was performed without IV contrast. Images are presented in axial, sagittal, and coronal reformats. Axial MIP reconstructions are also provided. FINDINGS: LUNGS:No focal consolidation. There is a groundglass 4 mm nodule centrally in the right middle lobe (axial image #31 of series 3).. No pneumothorax or pleural effusion. Central tracheobronchial tree is patent. HEART/MEDIASTINUM:The heart is normal in size without pericardial effusion. The thoracic aorta and main pulmonary artery are normal in caliber. Extensive atherosclerotic vascular calcifications are present. Thoracic esophagus is unremarkable. Included thyroid gland is unremarkable. No enlarged axillary lymph nodes. UPPER ABDOMEN/SOFT TISSUES: Moderately large hiatal hernia is present.. Soft tissues of the chest wall are unremarkable. BONES:Old right rib fractures identified. No definite acute fracture noted. Moderate degenerative changes in the thoracic spine. IMPRESSION: 1. Negative for acute traumatic abnormality. 2. Extensive calcific atherosclerotic calcifications. 3. 4 mm groundglass nodule in the right middle lobe. Follow-up as per Fleischner Society guidelines Electronically signed by Darrion Liang 02-23-2025 2:[address] 02/23/25 13:11 EXAM: CT head without contrast PROVIDED HISTORY: Patient fell this a.m. hitting head and right side. No loss of consciousness. COMPARISON: 06/09/2024 TECHNIQUE: Axial CT imaging of the head was performed without the use of IV contrast. Images are presented in axial, sagittal, and coronal reformats. FINDINGS: Diffuse atrophy and moderate symmetric lucencies again seen in the deep white matter tracks, similar to the previous study. No mass, hemorrhage or edema is seen. No midline shift or extra-axial blood/fluid collection is noted. Mastoid and visualized sinuses remain well aerated. No acute abnormality of the bony calvarium is noted. IMPRESSION: 1. Negative for acute intracranial process. 2. 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 Electronically signed by Darrion Liang 02-23-2025 2:35 PM Wrist X-Ray 02/23/25 13:11 XR forearm RT 2V, XR wrist RT min 3V routine CLINICAL HISTORY: fall, pain COMPARISON: None FINDINGS: There is an acute nondisplaced fracture at the midshaft of the ulna. No other acute fracture or dislocation seen at the right forearm or right wrist. There are moderate degenerative changes at the right wrist. IMPRESSION: Acute fracture midshaft right ulna. ACT 112: Negative or not required by law. Electronically signed by: Darrion Jolly M.D. 02/23/2025 2:00 PM Code Status & VTE Plan VTE Prophylaxis Plan VTE Prophylaxis will be ordered: Yes PG Care Time/CCT Total # of Minutes Spent Total Time Spent with Patient: Total time spent is greater than 50% in coordination of care (as documented) at patient's floor/unit and/or counseling patient: Coding Level of Care Code 66185 INT INP/OBS CARE 2/55MIN Diagnoses Fracture of right ulna S52.201A Encounter type: initial encounter Fracture type: closed Ulna location: shaft Closed pelvic ring fracture S32.810A Encounter type: initial encounter Pre-syncope R55 (1) Fracture of right ulna Encounter type: initial encounter Fracture type: closed Ulna location: shaft (2) Closed pelvic ring fracture Encounter type: initial encounter Qualified Code(s): S32.810A - Multiple fractures of pelvis with stable disruption of pelvic ring, initial encounter for closed fracture
[2025-02-24 00:05] LABS: Appearance Urine Clear (Clear); Bacteria Urine Automated 1+ (None Seen); Bilirubin Urine Negative (Negative); Blood Urine Negative (Negative); Cast Urine Automated 0-2 /lpf (0-2); Color Urine Yellow; Glucose Urine UA Negative (Negative); Ketones Urine Trace (Negative); Leukocyte Esterase Urine 2+ (Negative); Nitrite Urine Negative (Negative); Protein Urine Trace (Negative); RBC Urine Automated 0-2 /hpf (0-2); Urobilinogen Urine Negative (Negative); WBC Urine Automated 0-5 /hpf (0-5); pH Urine 8.5 (4.5-7.5)
--- NOTE | 2025-02-24 07:49 | Hospitalist Progress Note ---
Date of Service February 24, 2025 Assessment & Plan (1) Fracture of right ulna: (2) Closed pelvic ring fracture: (3) Pre-syncope: Plan 89-year-old female with a history of dehydration leading to syncope in the past. presented with dizziness, no loss of consciousness, fall and was found to have right ulnar fracture and right pelvis fracture. had abnormal ua on intake awaiting urine culture Right ulnar fracture/Right pelvis fracture Arm in a cast Consult orthopedics Likely nonoperative Will consult PT/OT after orthopedics evaluation discussed disposition to rehab pt is agreeable Dizziness/presyncope The patient did not lost consciousness She woke up feeling dizzy and it was postural when she stood up from sitting position. The second spell was when she turned her head in a compact space, lost her balance and fell. Her story is suggestive of vasovagal rather than vertigo Check orthostatic vital signs May consider ordering an echocardiogram, echo 06/08 without sig valvular heart disease The patient has a history of syncope due to dehydration when she was admitted last August She is on 2 blood pressure medications at home. Will hold amlodipine but continue metoprolol. Monitor on telemetry Benign essential hypertension The patient is on 2 blood pressure medications at home. Will hold the amlodipine but continue metoprolol Obstructive sleep apnea Patient does not use CPAP at home Watch for hypoxia at night Full code DVT prophylaxis: Lovenox Admission and Anticipated Discharge Date Admission Date: February 23, 2025 Subjective pt has right forearm pain and right pelvis pain, difficult to have self care, at home is 89yo Physical Exam Physical Exam: Pleasant, thin female, painful to move in bed lungs are diminished at bases but clear Results & Data Results & Data Vital Signs (Past 12 Hours) Vital Signs Temp Pulse Pulse Resp BP BP Pulse Ox 02/24/25 07:39 99.0 F 64 16 169/64 H 93 02/24/25 03:42 98.6 F 62 18 126/62 93 02/24/25 00:11 99.3 F 70 18 132/65 92 02/23/25 23:23 62 02/23/25 21:33 02/23/25 20:27 58 L 18 147/66 H 90 O2 Del Method 02/24/25 07:39 Room Air 02/24/25 03:42 Room Air 02/24/25 00:11 Room Air 02/23/25 23:23 02/23/25 21:33 Room Air 02/23/25 20:27 Room Air PG Care Time/CCT Total # of Minutes Spent Total Time Spent with Patient: Total time spent is greater than 50% in coordination of care (as documented) at patient's floor/unit and/or counseling patient: Coding Level of Care Code 36145 SUB INP/OBS CARE 3/50MIN Diagnoses Fracture of right ulna S52.201A Encounter type: initial encounter Fracture type: closed Ulna location: shaft Closed pelvic ring fracture S32.810A Encounter type: initial encounter Pre-syncope R55 (1) Fracture of right ulna Encounter type: initial encounter Fracture type: closed Ulna location: shaft (2) Closed pelvic ring fracture Encounter type: initial encounter Qualified Code(s): S32.810A - Multiple fractures of pelvis with stable disruption of pelvic ring, initial encounter for closed fracture
--- NOTE | 2025-02-24 11:27 | Orthopedic Consultation ---
Date of Service February 24, 2025 Assessment & Plan (1) Fracture of right ulna: No surgery indicated. Con't to treat w/ splint. Transition to long arm cast in 1 to 2 weeks. However, may consider remaining in splint alone depending on how the fracture site appears on future radiographs. (2) Closed pelvic ring fracture: No surgery indicated. WBAT. Mobilize w/ PT/OT. Wheelchair if unable to ambulate; may attempt platform walker if therapy feels she is eventually able to do that. Soft donut cushion if needed. Pain control. Patient can expect to have pain for up to 6 weeks. DVT prophylaxis per primary service; currently on Lovenox. History of Present Illness Reason for Consultation: right ulnar Fx, pelvis Fx Requesting Physician: . Attending Physician: Titi Andrews MD ED provider note 02/23/2025: Patient is a 89-year-old female history of cardiac disease and GERD who felt lightheaded in the kitchen this morning fell. Hit her head on the chair and landed on her right arm and hip in the chair. Denies headache or loss of consciousness. No blood thinner use reported. Reports significant pain in the right hip region as well as pain in the right arm. Denies headache or dizziness. Denies chest pain or shortness of breath. Denies other abdominal pain or nauseousness pain around the right hip and flank region. Denies injury to the lower extremities otherwise. No numbness or tingling reported. Denies history of lightheadedness or faintness. Denies of palpitations to her recollection. Pain in the right hip does radiate to the groin some. Unable to ambulate due to pain here. IMPRESSION/MEDICAL DECISION MAKING: Primary and secondary survey completed. Airway breathing intact. No cervical spine tenderness. Evidence of tenderness and some hematoma to the right forearm as well as some pain in the right hip and pelvic region. No anticoagulant us age. X-rays obtained show evidence of a mid ulnar fracture without significant displacement as well as evidence of a right pelvic fracture. No other significant trauma reported on CT scans by radiologist report. Basic blood work obtained here and EKG obtained without evidence of significant anemia, leukocytosis, electrolyte abnormality, and stable CKD. Troponin and CK normal. No evidence concerning for compartment syndrome. Patient given some fentanyl for pain. Updated patient at bedside findings. Discussed with her staying for further pain control. Do not believe the patient is unstable or requiring surgery for the pelvic fracture at this time and will bring in for further care. Did discuss with radiology who initially did not comment on the pelvic fracture on CT scan. Negative cervical spine scan for cervical clearance at 2:49 PM. Discussed with the hospitalist team. Splint of the posterior right arm placed and given her restriction to the left arm due to prior mastectomy and the IV placement of the right arm will only utilize a posterior splint at this time leaving the AC open for the IV usage. Again no evidence of compartment syndrome. No large open wounds and no evidence of open fracture. DIAGNOSIS: Fall, right ulnar fracture, right inferior and superior rami pelvic fracture, episode of lightheadedness DISPOSITION: Hospitalist will evaluate Patient was agreeable with this plan. PROCEDURE: splint placement Indications for procedure: Mid ulnar fracture Description of the procedure: Long posterior orthoglass splint was placed on the patient's right upper extremity. Neurovascular status was intact after placement of the splint. IV site was left exposed for use. PATIENT CONDITION AFTER PROCEDURE: good Hospitalist note 02/23/2025: This is an 89-year-old female with a history of syncope in August due to dehydration, benign essential hypertension on 3 medications, history of breast cancer, GERD, obstructive sleep apnea (does not use CPAP), CKD stage III, presented with dizziness followed by a fall. She did not pass out this time. She fell on a chair. Her called the ambulance that brought her to the emergency room. She was multiple imaging done that showed a right ulnar fracture and a right pubic ramus fracture. She is being admitted for medical management, pain control and physical therapy. On further questioning about the dizziness, she revealed that this morning when she woke up from bed, she felt dizzy standing up from a sitting position. She was thinking of taking her "dizziness" medicine and thus came down to the kitchen cabinet. When she turned in the small space between the microwave and the sink, she felt dizzy again and fell. This time she did not pass out but she fell on a chair. She describes her dizziness as a feeling of wooziness like her eyes are going to close. She does not describe it as feeling like the room is spinning or the floor is moving. Patient complains of a little bit of pain in her groin only when she moves. Her right arm pain has resolved since they put it in a cast. When she is on bedrest, she is not in any pain. She says that she does not think she is a llergic to morphine. 1. Right ulnar fracture Arm in a cast Consult orthopedics 2. Right pelvis fracture Likely nonoperative Consult orthopedics Will consult PT/OT after orthopedics evaluation Today, the patient remains in a posterior long-arm splint on the right. This is well-fitting and the patient has no complaints. She says that her arm pain is really not what is bothering her, but rather her pain in the pelvis. Patient states that anytime the nurses try to move her at all she immediately starts to feel pretty severe pain in the pelvis. She has not yet been out of bed or into the bedside chair at all. Therapy has not come by at all at this point. If she is laying flat on her back and is not moving around, her pain is tolerable, and she really has minimal to no pain when resting like that. Allergies Allergy/AdvReac Type Severity Reaction Status Date / Time morphine Allergy Unknown RASH Verified 01/16/25 11:32 terazosin Allergy Verified 01/16/25 11:32 Home Medications Medication Instructions Recorded Confirmed Type denosumab 60 mg/mL subcutaneous 60 mg subcut .EVERY 6 MONTHS 04/11/19 01/16/25 History syringe (Prolia) fluorometholone 0.1 % eye 1 drp OPB [id number] 04/11/19 02/23/25 History drops,suspension ondansetron 4 mg disintegrating 4 mg translingual DAILY PRN Nausea 11/25/22 02/23/25 History tablet paroxetine HCl 10 mg tablet 10 mg PO DAILY 11/25/22 02/23/25 History omeprazole 40 mg capsule,delayed 40 mg PO DAILY 06/09/24 02/23/25 History release aspirin 81 mg tablet,delayed 81 mg PO DAILY #30 tabs 06/10/24 01/16/25 Rx release (Adult Low Dose Aspirin) lisinopril 10 mg tablet 10 mg PO DAILY #30 tabs 06/10/24 02/23/25 Rx atorvastatin 40 mg tablet 40 mg PO HS 08/15/24 02/23/25 History amlodipine 10 mg tablet 10 mg PO DAILY 01/16/25 02/23/25 History cyanocobalamin (vitamin B-12) 2,000 mcg PO DAILY 02/23/25 02/23/25 History 1,000 mcg tablet metoprolol succinate 25 mg 25 mg PO HS 02/23/25 02/23/25 History tablet,extended release 24 hr Past Med/Surg History Problem List Fracture of right ulna (Acute) Closed pelvic ring fracture (Acute) Acute dehydration (Acute) Pre-syncope (Acute) Bradycardia (Acute) GERALD (acute kidney injury) (Acute) Dizziness (Acute) Pre-syncope Bradycardia Elevated troponin (Acute) Non-STEMI (non-ST elevated myocardial infarction) (Acute) Jaw pain (Acute) Headache (Acute) Fall (Acute) Tick bite (Acute) Rectal bleeding Rectal prolapse (Chronic) Encounter for pre-operative examination Osteoarthritis GERD (gastroesophageal reflux disease) controlled Cancer L BREAST, DOUBLE MASTECTOMY - CHEMO (2015) Hx of mastectomy BILATERAL Hx of cornea transplant BL Medical History Abnormal urinalysis CKD stage 3b, GFR 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 Drug reaction GERALD (acute kidney injury) Hypertension Limb alert care status LUE Osteoporosis Surgical History Hx of colonoscopy History of left knee replacement H/O cataract removal with insertion of prosthetic lens bilateral Family History Other Family history of diabetes mellitus Denies family history of Ovarian cancer Breast cancer Colorectal cancer Social History Smoking Status: Never smoker Second Hand Exposure: No; Do You Dip or Chew Tobacco: No; Hx Alcohol Use: No Hx Substance Use: No Preferred Language: Ukrainian Communication Ability: Effective Visual Impairment: No Limitations Oncology Admin Required: No Beliefs That Will Affect Care: None Current Living Situation: Spouse Feels Safe at Home: Yes Assistive Devices: Wheelchair Review of Systems All systems reviewed & are unremarkable except as noted in HPI & below. Physical Exam GENERAL: AA&Ox3, Lying in bed, NAD. Pleasant, affect is calm. Lying in bed flat and appears relatively comfortable. RESPIRATORY: Normal respiratory effort with no signs of distress. CHEST/AXILLA: Chest movement symmetrical. No deformities noted. CARDIOVASCULAR: No edema noted. SKIN: [place], warm and dry. MS/EXTREMITY: Posterior long-arm splint intact to right upper extremity. Median/Ulnar/Radial nerve distributions intact to sensory/motor. Radial pulse intact, 2+. + Wiggles toes. NVI distally BLEs. Calves soft/NT. DP/PT pulses intact. Results & Data Results & Data Laboratory Results Laboratory Results - last 48 hr 02/23/25 02/23/25 12:57 23:39 WBC 7.85 RBC 3.93 L Hgb 11.8 L Hct 35.5 L MCV 90.3 MCH 30.0 MCHC 33.2 RDW Std Deviation 46.7 H RDW Coeff of Manfred 14.0 Plt Count 217 MPV 10.1 Immature Gran % (Auto) 0.8 Neut % (Auto) 73.4 Lymph % (Auto) 13.2 Mcdonough % (Auto) 5.6 Eos % (Auto) 6.0 Baso % (Auto) 1.0 Neut # (Auto) 5.76 Lymph # (Auto) 1.04 L Mcdonough # (Auto) 0.44 Eos # (Auto) 0.47 Baso # (Auto) 0.08 Immature Gran # (Auto) 0.06 PT 10.6 INR 1.0 APTT 27 PTT Ratio 1.0 Sodium 132 L Potassium 4.9 Chloride 99 Carbon Dioxide 29 Anion Gap 4 BUN 19 Creatinine 1.53 H Est Cr Clr Drug Dosing 18.8 eGFR 32.33 BUN/Creatinine Ratio 12.4 Glucose 107 H Calcium 9.5 Magnesium 2.0 Total Bilirubin 0.5 AST 23 ALT 17 Alkaline Phosphatase 59 Total Creatine Kinase 102 Troponin I High Sens 9.8 Total Protein 6.8 Albumin 4.4 Globulin 2.4 L Albumin/Globulin Ratio 1.8 Urine Color Yellow Urine Appearance Clear Urine pH 8.5 H Ur Specific Onyx 1.010 Urine Protein Trace H Urine Glucose (UA) Negative Urine Ketones Trace H Urine Blood Negative Urine Nitrite Negative Urine Bilirubin Negative Urine Urobilinogen Negative Ur Leukocyte Esterase 2+ H Urine WBC (Auto) 0-5 Urine RBC (Auto) 0-2 U Hyaline Cast (Auto) 0-2 U Epithel Cells (Auto) 6-10 H Urine Bacteria (Auto) 1+ H Diagnostic Findings . Forearm X-Ray 02/23/25 13:00 XR forearm RT 2V, XR wrist RT min 3V routine CLINICAL HISTORY: fall, pain COMPARISON: None FINDINGS: There is an acute nondisplaced fracture at the midshaft of the ulna. No other acute fracture or dislocation seen at the right forearm or right wrist. There are moderate degenerative changes at the right wrist. IMPRESSION: Acute fracture midshaft right ulna. ACT 112: Negative or not required by law. Electronically signed by: Darrion Jolly M.D. 02/23/2025 2:00 PM Hip/Pelvis X-Ray 02/23/25 13:00 XR hip RT 2V w pelvis CLINICAL HISTORY: fall, pain COMPARISON: None FINDINGS: There are degenerative changes at the hips, moderate on the right and severe on the left. There are acute minimally displaced fractures at the right pubis extending into the medial aspect of the right superior and inferior pubic rami. No other acute fracture or dislocation seen. IMPRESSION: Acute fractures at the right pubis and adjacent rami. ACT 112: Negative or not required by law. Electronically signed by: Darrion Jolly M.D. 02/23/2025 2:01 PM Wrist X-Ray 02/23/25 13:11 XR forearm RT 2V, XR wrist RT min 3V routine CLINICAL HISTORY: fall, pain COMPARISON: None FINDINGS: There is an acute nondisplaced fracture at the midshaft of the ulna. No other acute fracture or dislocation seen at the right forearm or right wrist. There are moderate degenerative changes at the right wrist. IMPRESSION: Acute fracture midshaft right ulna. ACT 112: Negative or not required by law. Electronically signed by: Darrion Jolly M.D. 02/23/2025 2:00 PM PG Care Time/CCT Total # of Minutes Spent Total Time Spent with Patient: Total time spent is greater than 50% in coordination of care (as documented) at patient's floor/unit and/or counseling patient: [place] [address] IN/OBS CONSULT LVL 5,80M Patient Type New History Expanded Problem Focused Exam Expanded Problem Focused Medical Decision Making Moderate Complexity Diagnoses Fracture of right ulna S52.201A Encounter type: initial encounter Fracture type: closed Ulna location: shaft Closed pelvic ring fracture S32.810A Encounter type: initial encounter Additional Codes Fx Elbow/Forearm - Ulnar shaft (alone): Ulnar shaft (alone) ([id number]) (1) Fracture of right ulna Encounter type: initial encounter Fracture type: closed Ulna location: shaft (2) Closed pelvic ring fracture Encounter type: initial encounter Qualified Code(s): S32.810A - Multiple fractures of pelvis with stable disruption of pelvic ring, initial encounter for closed fracture
--- NOTE | 2025-02-24 12:36 | Electrocardiogram Report ---
Test Reason : Blood Pressure : */* mmHG Vent. Rate : 57 BPM Atrial Rate : 57 BPM P-R Int : 182 ms QRS Dur : 86 ms QT Int : 466 ms P-R-T Axes : 58 50 42 degrees QTcB Int : 453 ms Sinus bradycardia with occasional Premature ventricular complexes and Premature atrial complexes Otherwise normal ECG When compared with ECG of 15-Aug-2024 21:11, Premature ventricular complexes are now Present T wave amplitude has decreased in Lateral leads Confirmed by Sherman Burton ([id number]) on 02/24/2025 12:36:02 PM Referred By: Confirmed By: Sherman Burton
--- NOTE | 2025-02-25 16:13 | Hospitalist Progress Note ---
Date of Service February 25, 2025 Assessment & Plan (1) Fracture of right ulna: (2) Closed pelvic ring fracture: (3) Pre-syncope: Plan 89-year-old female with a history of dehydration leading to syncope in the past. presented with dizziness, no loss of consciousness, fall and was found to have right ulnar fracture and right pelvis fracture. had abnormal ua on intake awaiting urine culture Right ulnar fracture/Right pelvis fracture Arm in a cast Consult orthopedics nonoperative PT/OT recommends disposition to rehab, pt is agreeable Dizziness/presyncope no events here at hospital The patient did not lost consciousness She woke up feeling dizzy and it was postural when she stood up from sitting position. The second spell was when she turned her head in a compact space, lost her balance and fell. Her story is suggestive of vasovagal rather than vertigo Check orthostatic vital signs hold amlodipine but continue metoprolol. Monitor on telemetry slight bradycardia, reduce metoprolol dose Benign essential hypertension The patient is on 2 blood pressure medications at home. Will hold the amlodipine but continue metoprolol Obstructive sleep apnea Patient does not use CPAP at home Watch for hypoxia at night Full code DVT prophylaxis: Lovenox Admission and Anticipated Discharge Date Admission Date: February 23, 2025 Subjective pt is doing well therapy recommends inpatient rehab attempted to call with no answer of phone Physical Exam Physical Exam: Pleasant, thin female, painful to move in bed lungs are diminished at bases but clear Results & Data Results & Data Vital Signs (Past 12 Hours) Vital Signs Temp Pulse Pulse Resp BP Pulse Ox O2 Del Method 02/25/25 11:55 97.9 F 64 18 186/71 H 95 Room Air 02/25/25 08:21 92 Nasal Cannula 02/25/25 08:20 88 L Room Air 02/25/25 08:07 98.1 F 63 18 109/64 88 L Room Air 02/25/25 07:00 60 O2 Flow Rate 02/25/25 11:55 02/25/25 08:21 2 02/25/25 08:20 02/25/25 08:07 02/25/25 07:00 PG Care Time/CCT Total # of Minutes Spent Total Time Spent with Patient: Total time spent is greater than 50% in coordination of care (as documented) at patient's floor/unit and/or counseling patient: Coding Level of Care Code 57268 SUB INP/OBS CARE 35MIN Diagnoses Fracture of right ulna S52.201A Encounter type: initial encounter Fracture type: closed Ulna location: shaft Closed pelvic ring fracture S32.810A Encounter type: initial encounter Pre-syncope R55 (1) Fracture of right ulna Encounter type: initial encounter Fracture type: closed Ulna location: shaft (2) Closed pelvic ring fracture Encounter type: initial encounter Qualified Code(s): S32.810A - Multiple fractures of pelvis with stable disruption of pelvic ring, initial encounter for closed fracture
--- NOTE | 2025-02-26 15:25 | Hospitalist Progress Note ---
Date of Service February 26, 2025 Assessment & Plan (1) Fracture of right ulna: (2) Closed pelvic ring fracture: (3) Pre-syncope: Plan 89-year-old female with a history of dehydration leading to syncope in the past. presented with dizziness, no loss of consciousness, fall and was found to have right ulnar fracture and right pelvis fracture. had abnormal ua on intake awaiting urine culture Right ulnar fracture/Right pelvis fracture Arm in a cast Consult orthopedics nonoperative PT/OT recommends disposition to rehab, pt is agreeable Dizziness/presyncope no events here at hospital The patient did not lost consciousness She woke up feeling dizzy and it was postural when she stood up from sitting position. The second spell was when she turned her head in a compact space, lost her balance and fell. Her story is suggestive of vasovagal rather than vertigo Check orthostatic vital signs hold amlodipine but continue metoprolol. Monitor on telemetry slight bradycardia, reduce metoprolol dose Benign essential hypertension The patient is on 2 blood pressure medications at home. Will hold the amlodipine but continue metoprolol Obstructive sleep apnea Patient does not use CPAP at home Watch for hypoxia at night Full code DVT prophylaxis: Lovenox Admission and Anticipated Discharge Date Admission Date: February 23, 2025 Subjective pt is doing well therapy recommends inpatient rehab, likely will need snf attempted to call with no answer of phone Physical Exam 2 Physical Exam: Pleasant, thin female, painful to move in bed, mostly pelvic/hip pain lungs are diminished at bases but clear Results & Data Results & Data Vital Signs (Past 12 Hours) Vital Signs Temp Pulse Pulse Resp BP BP Pulse Ox 02/26/25 15:15 97.7 F 65 20 131/75 91 02/26/25 14:36 02/26/25 11:27 98.1 F 62 20 160/82 H 94 02/26/25 07:36 98.1 F 63 20 138/81 92 02/26/25 06:41 62 02/26/25 04:01 99.5 F 70 18 175/71 H 94 O2 Del Method 02/26/25 15:15 Room Air 02/26/25 14:36 Room Air 02/26/25 11:27 Room Air 02/26/25 07:36 Room Air 02/26/25 06:41 02/26/25 04:01 Room Air PG Care Time/CCT Total # of Minutes Spent Total Time Spent with Patient: Total time spent is greater than 50% in coordination of care (as documented) at patient's floor/unit and/or counseling patient: Coding Level of Care Code 56564 SUB INP/OBS CARE 2/35MIN Diagnoses Fracture of right ulna S52.201A Encounter type: initial encounter Fracture type: closed Ulna location: shaft Closed pelvic ring fracture S32.810A Encounter type: initial encounter Pre-syncope R55 (1) Fracture of right ulna Encounter type: initial encounter Fracture type: closed Ulna location: shaft (2) Closed pelvic ring fracture Encounter type: initial encounter Qualified Code(s): S32.810A - Multiple fractures of pelvis with stable disruption of pelvic ring, initial encounter for closed fracture
--- NOTE | 2025-02-27 16:08 | Hospitalist Progress Note ---
Date of Service February 27, 2025 Assessment & Plan (1) Fracture of right ulna: (2) Closed pelvic ring fracture: (3) Pre-syncope: Plan 89-year-old female with a history of dehydration leading to syncope in the past. presented with dizziness, no loss of consciousness, fall and was found to have right ulnar fracture and right pelvis fracture. had abnormal ua on intake awaiting urine culture Right ulnar fracture/Right pelvis fracture Arm in a cast Consult orthopedics nonoperative PT/OT recommends disposition to rehab, pt is agreeable Dizziness/presyncope no events here at hospital The patient did not lost consciousness She woke up feeling dizzy and it was postural when she stood up from sitting position. The second spell was when she turned her head in a compact space, lost her balance and fell. Her story is suggestive of vasovagal rather than vertigo amlodipine but hold metoprolol as slower heart rate Benign essential hypertension The patient is on 2 blood pressure medications at home. see if single amlodipine can control Obstructive sleep apnea Patient does not use CPAP at home Watch for hypoxia at night Full code DVT prophylaxis: Lovenox Admission and Anticipated Discharge Date Admission Date: February 23, 2025 Subjective pt is doing well therapy recommends inpatient rehab, likely will need snf no clear reason for long leg splint will remove as is uncomfortable Physical Exam Physical Exam: Pleasant, thin female, painful to move in bed, mostly pelvic/hip pain lungs are diminished at bases but clear Results & Data Results & Data Vital Signs (Past 12 Hours) Vital Signs Temp Pulse Pulse Resp BP Pulse Ox O2 Del Method 02/27/25 15:14 61 02/27/25 14:57 98.2 F 64 17 189/84 H 92 Room Air 02/27/25 11:12 97.9 F 57 L 17 171/78 H 93 Room Air 02/27/25 07:48 97.5 F L 55 L 17 152/80 H 90 Room Air 02/27/25 07:02 52 L PG Care Time/CCT Total # of Minutes Spent Total Time Spent with Patient: Total time spent is greater than 50% in coordination of care (as documented) at patient's floor/unit and/or counseling patient: Coding Level of Care Code 53648 SUB INP/OBS CARE 2/35MIN Diagnoses Fracture of right ulna S52.201A Encounter type: initial encounter Fracture type: closed Ulna location: shaft Closed pelvic ring fracture S32.810A Encounter type: initial encounter Pre-syncope R55 (1) Fracture of right ulna Encounter type: initial encounter Fracture type: closed Ulna location: shaft (2) Closed pelvic ring fracture Encounter type: initial encounter Qualified Code(s): S32.810A - Multiple fractures of pelvis with stable disruption of pelvic ring, initial encounter for closed fracture
--- NOTE | 2025-02-28 09:59 | Hospitalist Progress Note ---
Date of Service February 28, 2025 Assessment & Plan (1) Fracture of right ulna: Plan: Arm in a cast (2) Closed pelvic ring fracture: Plan: Consult orthopedics nonoperative PT/OT recommends disposition to rehab, awaiting placement (3) Pre-syncope: Plan: -marino vasovagal Plan 89-year-old female with a history of dehydration leading to syncope in the past. presented with dizziness, no loss of consciousness, fall and was found to have right ulnar fracture and right pelvis fracture. had abnormal ua on intake awaiting urine culture Admission and Anticipated Discharge Date Admission Date: February 23, 2025 Subjective No events overnight, pt awaiting placement. Review of Systems Review of Systems: CONST: Negative for fever, body aches and chills. HENT: Negative for neck pain/stiffness, headache, congestion, sore throat, swelling. EYES: Negative for discharge/pain or vision changes. RESP: Negative for cough/hemoptysis and shortness of breath. CV: Negative chest pain, difficulty breathing, palpitations. ABD: Negative pain, nausea, vomiting. : Negative increase frequency, dysuria, blood in urine or stool. MUSC: Negative for muscle aches, edema. SKIN: Negative rash, lesions/sores. NEURO: Negative headache, dizziness, weakness. Physical Exam Physical Exam: GENERAL APPEARANCE NAD, activity normal for age, well developed/ well nourished, no cyanosis, pallor, or diaphoresis. EYES lids/conjunctiva normal. EARS/NOSE/THROAT Mucous membranes moist, nares normal, lips/teeth normal uvula midline without oral pharyngeal erythema, exudate or swelling TMs normal bilaterally. No lymphangitis/lymphedema. HEAD/NECK normocephalic atraumatic, no facial trauma, neck is supple. RESPIRATORY respiratory effort normal, speaks in full sentences, no tripod position, no accessory muscle use. Lungs clear to auscultation without rhonchi, wheezes, rales CARDIAC Regular rate and rhythm, no edema. ABDOMINAL Soft, ND/NT. No evidence of fluid wave. No pulsatile masses on exam, rebound tenderness, Marie sign or pain over Mcburney's point. MUSCLES/EXTREMITIES No abnormal range of motion, no swelling. SKIN Warm, pink and dry. No rashes, dermatoses, petechiae or lesions. NEUROLOGICAL Speech is clear and appropriate. Normal level of consciousness. Gait and coordination are normal. 5/5 strength in all extremities. PSYCH Normal mood and affect. Judgement/competence is appropriate Results & Data Results & Data Vital Signs (Past 12 Hours) Vital Signs Temp Pulse Resp BP BP Pulse Ox O2 Del Method 02/28/25 08:02 Room Air 02/28/25 07:32 36.8 C 69 20 141/83 H 93 Room Air 02/28/25 00:10 36.7 C 85 20 134/62 95 Room Air PG Care Time/CCT Total # of Minutes Spent Total Time Spent with Patient: Total time spent is greater than 50% in coordination of care (as documented) at patient's floor/unit and/or counseling patient: Coding Level of Care Code 04561 SUB INP/OBS CARE 2/35MIN Diagnoses Fracture of right ulna S52.201A Encounter type: initial encounter Fracture type: closed Ulna location: shaft Closed pelvic ring fracture S32.810A Encounter type: initial encounter Pre-syncope R55 (1) Fracture of right ulna Encounter type: initial encounter Fracture type: closed Ulna location: shaft (2) Closed pelvic ring fracture Encounter type: initial encounter Qualified Code(s): S32.810A - Multiple fractures of pelvis with stable disruption of pelvic ring, initial encounter for closed fracture
[2025-03-01 06:23] LABS: Hematocrit (blood only) 29.1 % (37.0-47.0); Hemoglobin 9.7 g/dl (12.0-16.0); Mean Corpuscular Hemoglobin 30.1 pg (25.0-34.0); Mean Corpuscular Hgb Conc 33.3 g/dL (32.0-36.0); Mean Corpuscular Volume 90.4 fL (80.0-100.0); Mean Platelet Volume 10.2 fL (9.4-12.4); Platelet Count 205 K/uL (130-400); RDW Coefficient of Variation 14.6 % (11.5-14.5); RDW Standard Deviation 48.3 fL (36.4-46.3); Red Blood Count 3.22 M/uL (4.20-5.40); White Blood Count 7.84 K/ul (4.8-10.8)
[2025-03-01 06:40] LABS: Calcium 8.7 mg/dl (8.6-10.3); Potassium 4.5 mmol/L (3.5-5.1)
[2025-03-01 06:46] LABS: BUN Creatinine Ratio 20.2 (10-20); Creatinine Clr Calc Pharmacy 24.2 ml/min
--- NOTE | 2025-03-01 10:01 | Hospitalist Progress Note ---
Date of Service March 01, 2025 Assessment & Plan (1) Fracture of right ulna: Plan: Arm in a cast (2) Closed pelvic ring fracture: Plan: Consult orthopedics nonoperative PT/OT recommends disposition to rehab, awaiting placement (3) Pre-syncope: Plan: -marino vasovagal Plan 89-year-old female with a history of dehydration leading to syncope in the past. presented with dizziness, no loss of consciousness, fall and was found to have right ulnar fracture and right pelvis fracture. had abnormal ua on intake awaiting urine culture Admission and Anticipated Discharge Date Admission Date: February 23, 2025 Subjective No events overnight. Pt resting comfortably in bed. Review of Systems Review of Systems: CONST: Negative for fever, body aches and chills. HENT: Negative for neck pain/stiffness, headache, congestion, sore throat, swelling. EYES: Negative for discharge/pain or vision changes. RESP: Negative for cough/hemoptysis and shortness of breath. CV: Negative chest pain, difficulty breathing, palpitations. ABD: Negative pain, nausea, vomiting. : Negative increase frequency, dysuria, blood in urine or stool. MUSC: Negative for muscle aches, edema. SKIN: Negative rash, lesions/sores. NEURO: Negative headache, dizziness, weakness. Physical Exam Physical Exam: GENERAL APPEARANCE NAD, activity normal for age, well developed/ well nourished, no cyanosis, pallor, or diaphoresis. EYES lids/conjunctiva normal. EARS/NOSE/THROAT Mucous membranes moist, nares normal, lips/teeth normal uvula midline without oral pharyngeal erythema, exu date or swelling TMs normal bilaterally. No lymphangitis/lymphedema. HEAD/NECK normocephalic atraumatic, no facial trauma, neck is supple. RESPIRATORY respiratory effort normal, speaks in full sentences, no tripod position, no accessory muscle use. Lungs clear to auscultation without rhonchi, wheezes, rales CARDIAC Regular rate and rhythm, no edema. ABDOMINAL Soft, ND/NT. No evidence of fluid wave. No pulsatile masses on exam, rebound tenderness, Marie sign or pain over Mcburney's point. MUSCLES/EXTREMITIES No abnormal range of motion, no swelling. SKIN Warm, pink and dry. No rashes, dermatoses, petechiae or lesions. NEUROLOGICAL Speech is clear and appropriate. Normal level of consciousness. Gait and coordination are normal. 5/5 strength in all extremities. PSYCH Normal mood and affect. Judgement/competence is appropriate Results & Data Results & Data Vital Signs (Past 12 Hours) Vital Signs Temp Pulse Resp BP BP Pulse Ox O2 Del Method 03/01/25 08:49 Room Air 03/01/25 07:29 36.7 C 67 20 156/84 H 95 Room Air 03/01/25 00:19 66 156/84 H 02/28/25 22:47 37.1 C 70 16 184/81 H 95 Room Air PG Care Time/CCT Total # of Minutes Spent Total Time Spent with Patient: Total time spent is greater than 50% in coordination of care (as documented) at patient's floor/unit and/or counseling patient: Coding Level of Care Code 34426 SUB INP/OBS CARE 2/35MIN Diagnoses Fracture of right ulna S52.201A Encounter type: initial encounter Fracture type: closed Ulna location: shaft Closed pelvic ring fracture S32.810A Encounter type: initial encounter Pre-syncope R55 (1) Fracture of right ulna Encounter type: initial encounter Fracture type: closed Ulna location: shaft (2) Closed pelvic ring fracture Encounter type: initial encounter Qualified Code(s): S32.810A - Multiple fractures of pelvis with stable disruption of pelvic ring, initial encounter for closed fracture
--- NOTE | 2025-03-02 10:33 | Hospitalist Progress Note ---
Date of Service March 02, 2025 Assessment & Plan (1) Fracture of right ulna: Plan: Arm in a cast (2) Closed pelvic ring fracture: Plan: Consult orthopedics nonoperative PT/OT recommends disposition to rehab, awaiting placement (3) Pre-syncope: Plan: -marino vasovagal Plan 89-year-old female with a history of dehydration leading to syncope in the past. presented with dizziness, no loss of consciousness, fall and was found to have right ulnar fracture and right pelvis fracture. had abnormal ua on intake awaiting urine culture Admission and Anticipated Discharge Date Admission Date: February 23, 2025 Subjective No events overnight Review of Systems Review of Systems: CONST: Negative for fever, body aches and chills. HENT: Negative for neck pain/stiffness, headache, congestion, sore throat, swelling. EYES: Negative for discharge/pain or vision changes. RESP: Negative for cough/hemoptysis and shortness of breath. CV: Negative chest pain, difficulty breathing, palpitations. ABD: Negative pain, nausea, vomiting. : Negative increase frequency, dysuria, blood in urine or stool. MUSC: Negative for muscle aches, edema. SKIN: Negative rash, lesions/sores. NEURO: Negative headache, dizziness, weakness. Physical Exam Physical Exam: GENERAL APPEARANCE NAD, activity normal for age, well developed/ well nourished, no cyanosis, pallor, or diaphoresis. EYES lids/conjunctiva normal. EARS/NOSE/THROAT Mucous membranes moist, nares normal, lips/teeth normal uvula midline without oral pharyngeal erythema, exudate or swelling TMs normal bilaterally. No lymphangitis/lymphedema. HEAD/NECK normocephalic atraumatic, no facial trauma, neck is supple. RESPIRATORY respiratory effort normal, speaks in full sentences, no tripod position, no accessory muscle use. Lungs clear to auscultation without rhonchi, wheezes, rales CARDIAC Regular rate and rhythm, no edema. ABDOMINAL Soft, ND/NT. No evidence of fluid wave. No pulsatile masses on exam, r ebound tenderness, Marie sign or pain over Mcburney's point. MUSCLES/EXTREMITIES No abnormal range of motion, no swelling. SKIN Warm, pink and dry. No rashes, dermatoses, petechiae or lesions. NEUROLOGICAL Speech is clear and appropriate. Normal level of consciousness. Gait and coordination are normal. 5/5 strength in all extremities. PSYCH Normal mood and affect. Judgement/competence is appropriate Results & Data Results & Data Vital Signs (Past 12 Hours) Vital Signs Temp Pulse Resp BP Pulse Ox O2 Del Method 03/02/25 09:25 Room Air 03/02/25 08:55 36.7 C 79 16 154/84 H 92 Room Air 03/01/25 23:05 Room Air PG Care Time/CCT Total # of Minutes Spent Total Time Spent with Patient: Total time spent is greater than 50% in coordination of care (as documented) at patient's floor/unit and/or counseling patient: Coding Level of Care Code 93722 SUB INP/OBS CARE 2/35MIN Diagnoses Fracture of right ulna S52.201A Encounter type: initial encounter Fracture type: closed Ulna location: shaft Closed pelvic ring fracture S32.810A Encounter type: initial encounter Pre-syncope R55 (1) Fracture of right ulna Encounter type: initial encounter Fracture type: closed Ulna location: shaft (2) Closed pelvic ring fracture Encounter type: initial encounter Qualified Code(s): S32.810A - Multiple fractures of pelvis with stable disruption of pelvic ring, initial encounter for closed fracture
--- NOTE | 2025-03-03 08:08 | Orthopedic Progress Note ---
Date of Service March 03, 2025 Assessment & Plan (1) Fracture of right ulna: Patient is 8 days out from a fall resulting in a right midshaft ulnar fracture. Fracture has maintained alignment over the last 8 days. She is currently in a posterior long-arm splint. We are going to keep her in that. I would like her to see outpatient orthopedics in 1 week. Hoping that this can transition to something else other than the posterior splint when she comes back. We are not going to change her to anything today as her IV needs to be accessible. She is unable to use her left upper extremity or any other aspects of her body or her right arm for an IV site. She is likely going to rehab today. Follow-up as an outpatient in 7 to 10 days. (2) Closed pelvic ring fracture: Beth Ferrara is an 89-year-old female who sustained a fall on 02/23/2025. She reported the emergency department at that time and was admitted due to pain with ambulation, right hip and right groin pain as well as right arm pain. She was found to have a right midshaft ulna fracture as well as a right pubic ramus fracture. She was seen for an orthopedic consultation on 02/24/2025. Recommended continuing Ortho-Glass long-arm splint with x-rays at 1 week out. Possible transition to long-arm cast or stay in splint based on radiographs. Patient states that she is doing well. In regards to her right arm, she states that she does not have much pain. She is resting in her posterior long-arm splint. She does have limb restrictions in the left upper extremity, therefore her IV is actually in the right antecubital fossa. She is unable to have an IV anywhere else. Does also state that she has some right pelvic pain. Per nursing staff, she has not been up and ambulating well. Her pain is under control. They state is difficult to get [facility] She states she is a difficult two-person lift. Patient states she does have some discomfort in her groin. Denies any numbness or tingling in the bilateral lower extremities. No other questions or concerns today. Review of Systems All systems reviewed & are unremarkable except as noted in HPI & below. Physical Exam General: Alert and oriented. No acute distress. Right arm: I did remove the Eliazar wrap's, splint. Skin check satisfactory. No skin tears, open wounds. No swelling of the right upper extremity. She is wearing a ring on her right hand. Does have some tenderness to the mid ulna. Her IV is in the right antecubital fossa. Because of this, I rewrapped her arm with Webril. I placed an ABD pad under the elbow. Splint was placed and a new Eliazar wrap's were placed. She remains neurovascularly intact in the right upper extremity. Results & Data Results & Data Laboratory Results . Diagnostic Findings I did obtain three-view images of the right wrist today as well as 2 view images of the right forearm. Continues to be a midshaft ulna fracture that has not shifted since imaging 1 week ago. Fracture has maintained alignment. After my evaluation of the patient, I did also order updated images of the right hip and pelvis. I was unable to view these at the time of the visit as they were just ordered. PG Care Time/CCT Total # of Minutes Spent Total Time Spent with Patient: Total time spent is greater than 50% in coordination of care (as documented) at patient's floor/unit and/or counseling patient: Coding Level of Care Code 33868 SUB INP/OBS CARE MIN Diagnoses Fracture of right ulna S52.201A Encounter type: initial encounter Fracture type: closed Ulna location: shaft Closed pelvic ring fracture S32.810A Encounter type: initial encounter (1) Fracture of right ulna Encounter type: initial encounter Fracture type: closed Ulna location: shaft (2) Closed pelvic ring fracture Encounter type: initial encounter Qualified Code(s): S32.810A - Multiple fractures of pelvis with stable disruption of pelvic ring, initial encounter for closed fracture
--- NOTE | 2025-03-03 08:13 | XRay Report ---
EXAM: XR wrist RT min 3V routine CLINICAL HISTORY: right ulna fracture TECHNIQUE: X-ray images of the right wrist were obtained in anteroposterior (AP), lateral, and oblique projections. COMPARISON: 02/23/2025 12:22:47 WEATHERIZATION ADMINISTRATOR FINDINGS: Bone Structure: Bone structure is normal and aligned. No evidence of fracture or dislocation. No osseous lesions or abnormalities identified. Joint Spaces: Joint spaces are normal. No evidence of joint effusion or subluxation. Soft Tissues: Soft tissues appear normal and unremarkable. No soft tissue swelling, calcifications, or foreign bodies noted. Additional Findings: No signs of osteoarthritis, bone spurs, lytic or sclerotic lesions. IMPRESSION: Normal X-ray of the right wrist. No evidence of acute fracture, dislocation, or significant soft tissue abnormalities. Disclaimer: A subtle bone abnormality or fracture may not be readily apparent on X-rays, thus clinical correlation and further imaging including follow-up CT, MRI, or follow-up X-rays are advised as needed. Electronically signed by Chito Valerio 03-03-2025 08:13 AM
--- NOTE | 2025-03-03 08:14 | XRay Report ---
EXAM: XR forearm RT 2V CLINICAL HISTORY: right midshaft ulna fracture TECHNIQUE: X-ray images of the right forearm were obtained in anteroposterior (AP) and lateral projections. COMPARISON: 02/23/2025 12:22:47 ORTHOPAEDIC DOCTOR FINDINGS: Bone Structure: Linear minimally displaced fracture is noted involving mid diaphysis of ulna Rest of the bones under vision appears unremarkable. Joint Spaces: Elbow and wrist joint spaces are normal. No evidence of joint effusion or subluxation. Soft Tissues: Soft tissues appear normal and unremarkable. No soft tissue swelling, calcifications, or foreign bodies noted. Additional Findings: No signs of osteoarthritis, periosteal reaction, or other abnormalities. IMPRESSION: Linear minimally displaced fracture is noted involving mid diaphysis of ulna-stable. No other new interval abnormality since prior study. Electronically signed by Chito Valerio 03-03-2025 08:14 AM
--- NOTE | 2025-03-03 09:02 | Hospitalist Progress Note ---
Date of Service March 03, 2025 Assessment & Plan (1) Fracture of right ulna: Plan: Arm in a cast (2) Closed pelvic ring fracture: Plan: Consult orthopedics nonoperative PT/OT recommends disposition to rehab, awaiting placement (3) Pre-syncope: Plan: -marino vasovagal Plan 89-year-old female with a history of dehydration leading to syncope in the past. presented with dizziness, no loss of consciousness, fall and was found to have right ulnar fracture and right pelvis fracture. had abnormal ua on intake awaiting urine culture Admission and Anticipated Discharge Date Admission Date: February 23, 2025 Subjective No events overnight Review of Systems Review of Systems: CONST: Negative for fever, body aches and chills. HENT: Negative for neck pain/stiffness, headache, congestion, sore throat, swelling. EYES: Negative for discharge/pain or vision changes. RESP: Negative for cough/hemoptysis and shortness of breath. CV: Negative chest pain, difficulty breathing, palpitations. ABD: Negative pain, nausea, vomiting. : Negative increase frequency, dysuria, blood in urine or stool. MUSC: Negative for muscle aches, edema. SKIN: Negative rash, lesions/sores. NEURO: Negative headache, dizziness, weakness. Physical Exam Physical Exam: GENERAL APPEARANCE NAD, activity normal for age, well developed/ well nourished, no cyanosis, pallor, or diaphoresis. EYES lids/conjunctiva normal. EARS/NOSE/THROAT Mucous membranes moist, nares normal, lips/teeth normal uvula midline without oral pharyngeal erythema, exudate or swelling TMs normal bilaterally. No lymphangitis/lymphedema. HEAD/NECK normocephalic atraumatic, no facial trauma, neck is supple. RESPIRATORY respiratory effort normal, speaks in full sentences, no tripod position, no accessory muscle use. Lungs clear to auscultation without rhonchi, wheezes, rales CARDIAC Regular rate and rhythm, no edema. ABDOMINAL Soft, ND/NT. No evidence of fluid wave. No pulsatile masses on exam, r ebound tenderness, Marie sign or pain over Mcburney's point. MUSCLES/EXTREMITIES No abnormal range of motion, no swelling. SKIN Warm, pink and dry. No rashes, dermatoses, petechiae or lesions. NEUROLOGICAL Speech is clear and appropriate. Normal level of consciousness. Gait and coordination are normal. 5/5 strength in all extremities. PSYCH Normal mood and affect. Judgement/competence is appropriate Results & Data Results & Data Vital Signs (Past 12 Hours) Vital Signs Temp Pulse Resp BP Pulse Ox O2 Del Method 03/03/25 07:31 36.6 C 71 16 146/74 H 90 Room Air 03/02/25 21:54 Room Air PG Care Time/CCT Total # of Minutes Spent Total Time Spent with Patient: Total time spent is greater than 50% in coordination of care (as documented) at patient's floor/unit and/or counseling patient: Coding Level of Care Code 76529 SUB INP/OBS CARE 2/35MIN Diagnoses Fracture of right ulna S52.201A Encounter type: initial encounter Fracture type: closed Ulna location: shaft Closed pelvic ring fracture S32.810A Encounter type: initial encounter Pre-syncope R55 (1) Fracture of right ulna Encounter type: initial encounter Fracture type: closed Ulna location: shaft (2) Closed pelvic ring fracture Encounter type: initial encounter Qualified Code(s): S32.810A - Multiple fractures of pelvis with stable disruption of pelvic ring, initial encounter for closed fracture
--- NOTE | 2025-03-03 13:26 | XRay Report ---
XR hip RT 2V w pelvis CLINICAL HISTORY: right pubic ramus fracture COMPARISON: 02/23/2025 FINDINGS: Right pubic rami fractures have stable alignment. IMPRESSION: Stable alignment. ACT 112: Negative or not required by law. Electronically signed by: Darrion Jolly M.D. 03/03/2025 1:24 PM
[2025-03-04 07:06] VITALS: BP 158/75; PULSE 62; RESP 16; TEMP 97.9; O2SAT 97
--- NOTE | 2025-03-04 10:10 | Discharge Summary ---
Discharge Summary Date of Service March 04, 2025 Principal Dx & Hospital Course #1 = Principal Diagnosis (1) Fracture of right ulna: Arm in a cast (2) Closed pelvic ring fracture: Consult orthopedics nonoperative PT/OT recommends disposition to rehab, awaiting placement (3) Pre-syncope: -marino vasovagal Plan 89-year-old female with a history of dehydration leading to syncope in the past. presented with dizziness, no loss of consciousness, fall and was found to have right ulnar fracture and right pelvis fracture. had abnormal ua on intake awaiting urine culture Admission HPI Per Admitting Provider This is an 89-year-old female with a history of syncope in August due to dehydration, benign essential hypertension on 3 medications, history of breast cancer, GERD, obstructive sleep apnea (does not use CPAP), CKD stage III, presented with dizziness followed by a fall. She did not pass out this time. She fell on a chair. Her called the ambulance that brought her to the emergency room. She was multiple imaging done that showed a right ulnar fracture and a right pubic ramus fracture. She is being admitted for medical management, pain control and physical therapy. On further questioning about the dizziness, she revealed that this morning when she woke up from bed, she felt dizzy standing up from a sitting position. She was thinking of taking her "dizziness" medicine and thus came down to the kitchen cabinet. When she turned in the small space between the microwave and the sink, she felt dizzy again and fell. This time she did not pass out but she fell on a chair. She describes her dizziness as a feeling of wooziness like her eyes are going to close. She does not describe it as feeling like the room is spinning or the floor is moving. Patient complains of a little bit of pain in her groin only when she moves. Her right arm pain has resolved since they put it in a cast. When she is on bedrest, she is not in any pain. She says that she does not think she is allergic to morphine. Discharge Exam GENERAL APPEARANCE NAD, activity normal for age, well developed/ well nourished, no cyanosis, pallor, or diaphoresis. EYES lids/conjunctiva normal. EARS/NOSE/THROAT Mucous membranes moist, nares normal, lips/teeth normal uvula midline without oral pharyngeal erythema, exudate or swelling TMs normal bilaterally. No lymphangitis/lymphedema. HEAD/NECK normocephalic atraumatic, no facial trauma, neck is supple. RESPIRATORY respiratory effort normal, speaks in full sentences, no tripod position, no accessory muscle use. Lungs clear to auscultation without rhonchi, wheezes, rales CARDIAC Regular rate and rhythm, no edema. ABDOMINAL Soft, ND/NT. No evidence of fluid wave. No pulsatile masses on exam, rebound tenderness, Marie sign or pain over Mcburney's point. MUSCLES/EXTREMITIES No abnormal range of motion, no swelling. SKIN Warm, pink and dry. No rashes, dermatoses, petechiae or lesions. NEUROLOGICAL Speech is clear and appropriate. Normal level of consciousness. Gait and coordination are normal. 5/5 strength in all extremities. PSYCH Normal mood and affect. Judgement/competence is appropriate Discharge Plan Discharge Items Patient Disposition: Transfer Shelter Fac Reason For Visit: FALL Discharge Diagnosis: right ulnar fracture right pelvic fracture Condition on Discharge: Fair Activity: Per Instructions section Activity Comment: pt/ot instructions Non-emergency contact: Primary Care Provider Call non-emergency contact if: your symptoms worsen Follow-up/Referrals: Kailee Longoria MD [Primary Care Provider] - Diet: Regular Addtl Attending Provider Instructions: your blood pressure was lower during your admission and your typical blood pressure medicines were reduced, continue to follow your blood pressure for further recommendations Pending Studies at Discharge: No Stand-Alone Forms: My [facility] Skilled Items Patient informed of condition?: Yes DNR: No Discharge Level of Care: Acute rehab Communicable Disease: No Discharge Prognosis: Stable Lines: None Urinary Catheter: No Medications and DC Order Prescriptions: New acetaminophen 325 mg Tablet 650 mg PO Q4H PRN (Reason: pain) Qty: 30 0RF enoxaparin [Lovenox] 30 mg/0.3 mL Syringe 30 mg subcut DAILY Qty: 28 0RF amlodipine [Norvasc] 5 mg Tablet 5 mg PO QAM Qty: 30 0RF Continued fluorometholone 0.1 % Drops,Suspension 1 drp OPB [id number] Rx Instructions: mon/wed/fri Prolia 60 mg/mL Syringe 60 mg SUBCUT .EVERY 6 MONTHS Rx Instructions: UNABLE TO VERIFY paroxetine HCl 10 mg tablet 10 mg PO DAILY ondansetron 4 mg tablet,disintegrating 4 mg translingual DAILY PRN (Reason: Nausea) omeprazole 40 mg capsule,delayed release(DR/EC) 40 mg PO DAILY aspirin [Adult Low Dose Aspirin] 81 mg tablet,delayed release (DR/EC) 81 mg PO DAILY Qty: 30 0RF atorvastatin 40 mg tablet 40 mg PO HS cyanocobalamin (vitamin B-12) 1,000 mcg tablet 2,000 mcg PO DAILY Changed metoprolol succinate 25 mg tablet extended release 24 hr 12.5 mg PO HS Qty: 0 0RF Discontinued amlodipine 10 mg tablet 10 mg PO DAILY lisinopril 10 mg tablet 10 mg PO DAILY Qty: 30 0RF Discharge Orders: Discharge Order (Routine); Ordered 03/04/25 Ordered By: Gonzalo Forrester Admission Data Admit Date/Time: 02/23/25 17:05 Attending Provider: Gonzalo Forrester Admit Provider: Iman Chery Primary Care Provider: Kailee Longoria Other Providers: Hesham Knight; Iman Chery; [place]; [facility]; [facility] Hospital Stay Data Consultations 02/23/25 15:33 ED Decision to Admit Stat 02/23/25 17:08 Consult Orthopedic Surgery Stat Diagnostic Imagining Performed 02/23/25 13:11 CT abd pelvis wo con Stat CT cervical spine wo con Stat CT chest diagnostic wo con Stat CT head/brain wo con Stat Pending Results Patient Have Any Pending Studies at Discharge: No Discharge Instructions Given to Patient (Per Discharging Provider) your blood pressure was lower during your admission and your typical blood pressure medicines were reduced, continue to follow your blood pressure for further recommendations Total Time Total Time Spent Total Time Spent (In Minutes): 50 Coding Level of Care Code 40632 INP/OBS DISCH >30 MIN Diagnoses Fracture of right ulna S52.201A Encounter type: initial encounter Fracture type: closed Ulna location: shaft Closed pelvic ring fracture S32.810A Encounter type: initial encounter Pre-syncope R55
--- NOTE | 2025-03-05 10:46 | Coding Query ---
To promote full compliance with coding requirements relating to patient care, physician participation is requested in all cases of abalone fisherman uncertainty. Please assist us with the question(s) below: Coding Question(s): It was noted in the record that the patient has Osteoporosis. According to coding guidelines "a code for osteoporotic fracture, and not a traumatic fracture, should be used for any patient with known osteoporosis who suffers a fracture, even if the patient had a minor fall or trauma, if that fall or trauma would not usually break a normal, healthy bone." Please indicate below the type of fractures for the Right Ulna and the Pelvic/Pelvic Ring Fracture: Physician's Response(s): 1. Right Ulna Fracture: (x ) Osteoporotic fracture ( ) Traumatic fracture ( ) Other, please specify 2. Pelvic Fracture/Pelvic Ring Fracture: ( x ) Osteoporotic fracture ( ) Traumatic fracture ( ) Other, please specify MTDD
== END 2025-03-04 12:19 ==
LOC: ED 12:30 → 2N 17:05 → SUATTDRO 17:05 → 2N 17:42 → 3E 03-03 21:24

== ENCOUNTER 2025-03-30 19:11 | Observation (INO) ==
[2025-03-30] MEDS: ONDANSETRON INJ 2 MG/ML 2 ML VIAL ONE (19:34)
[2025-03-30] MEDS: SODIUM CHLORIDE 0.9% 500 ML IV ONE ×3 (19:40→23:41)
--- NOTE | 2025-03-30 19:40 | Emergency Department Note ---
Impression & Plan Hypotension, Diffuse abdominal pain, Vomiting, Colitis, GI bleed ED Provider Note NAME: ROSALVA ELLSWORTH AGE: 89 SEX: F : 1935 ARRIVES VIA: Ambulance INFORMANT: [Patient][, EMS] ED PROVIDER(S): [Shawn Riggins MD] CHIEF COMPLAINT: Illness HISTORY OF PRESENT ILLNESS: The patient is an 89-year-old female who states that an hour and a half ago, she suddenly became nauseated with dry heaves and vomiting. She had some lower abdominal pain like she had to move her bowels but could not. As per EMS, the patient had a low blood pressure at 70 some systolic when they arrived. She had felt like she might faint but there was no loss of consciousness. She has had no chest pain, she is not short of breath. The patient had felt well throughout the rest of the day today. Patient is not on blood thinning agents. PMHx/PSHx/Social Hx: See Below PHYSICAL EXAM: GENERAL: Patient is in no acute distress. Holding a vomit bag with some dry heaves. HEENT: No acute trauma, normocephalic atraumatic, mucous membranes moist, no nasal congestion. NECK: No stridor, no adenopathy, no meningismus, trachea is midline. LUNGS: Clear to auscultation bilaterally. No respiratory distress. Breath sounds diminished bilaterally. HEART: Regular rate and rhythm, subtle systolic murmur. ABDOMEN: Soft, mildly diffusely tender, no peritonitis. EXTREMITIES: No cyanosis. The patient does have a cast on the right forearm and wrist. NEUROLOGIC: Awake and alert, no acute motor or sensory deficits, no focal weakness. SKIN: No jaundice, no diaphoresis. DIFFERENTIAL DIAGNOSIS: Bowel obstruction, dehydration, foodborne or viral illness, NH, gastritis, biliary colic, GI bleeding, among others. EMERGENCY DEPARTMENT PROCEDURES: MEDICAL DECISION MAKING: There is no leukocytosis. A mild anemia is seen. There is a normal platelet count. No coagulopathy. Creatinine is somewhat high at 1.66, no electrolyte abnormality in need of emergent correction. No concerning liver enzyme elevation. The TSH is slightly high however, the T4 is normal. The ECG shows a sinus rhythm, no acute ST elevation. Cardiac enzyme testing x 1 is not consistent with acute cardiac injury. Urinalysis does not show infection. Chest x-ray does not show pneumonia or free air. Abdominal and pelvis CT shows colitis, no bowel obstruction. As per the nursing staff, the patient began having black/melanotic stool that did test heme positive. The patient received IV saline, 1.5 L. She was given IV Protonix, IV Zofran, IV Pepcid and IV Tylenol. Patient presents with vomiting and abdominal pain. She was found to have colitis and a presumed upper GI bleed. She will require a hospital stay and further workup. I spoke with the patient and case management, the on-call hospitalist was consulted. Of note, although the patient was reportedly hypotensive before arrival, her blood pressure remained adequate while in the ED. Prior/Outside records/notes reviewed: Today's EMS notes describing her presentation and transport to this hospital. ECG per my interpretation: Indication was nausea and vomiting. The ECG shows a sinus rhythm with some PVCs. The rate was 66. There was no acute ST elevation, QTc was 444. Continuous Cardiac Monitoring per my interpretation: An order was placed for continuous cardiac monitoring. The monitor shows a rate of 78 with normal sinus rhythm. Imaging/x-ray results per my interpretation: Chest x-ray does not show free air or pneumonia. Chronic Medical/Social conditions affecting care: Advanced age. Care/Management discussed with: Case management, the on-call hospitalist. Level of care consideration(s): After review of the information above and other included data: --I believe the patient requires escalation of care to admission Critical Care Note: I have personally spent 41 minutes of critical care time in the direct management of this patient. This includes bedside care, interpretation of diagnostic studies, and testing, discussion with consultants, patient, and family members, and other required patient management activities. This 41 minutes is in excess of all separately billable procedures. DISPOSITION: Admission Past Med/Surg History Problem List (Updated 03/31/25 @ 01:22 by Shawn Riggins MD) GI bleed (Acute) Colitis (Acute) Vomiting (Acute) Diffuse abdominal pain (Acute) Hypotension (Acute) Melena Right iliac artery stenosis Hiatal hernia Right shoulder pain Pre-syncope (Acute) Bradycardia (Acute) GERALD (acute kidney injury) (Acute) Dizziness (Acute) Pre-syncope Bradycardia Jaw pain (Acute) Rectal bleeding Rectal prolapse (Chronic) Osteoarthritis GERD (gastroesophageal reflux disease) controlled Medical History Fracture of right ulna Closed pelvic ring fracture Cancer L BREAST, DOUBLE MASTECTOMY - CHEMO (2016) Abnormal urinalysis CKD stage 3b, GFR 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 Drug reaction GERALD (acute kidney injury) Hypertension Limb alert care status LUE Osteoporosis Surgical History (Updated 03/30/25 @ 23:53 by Leon Fitzpatrick MD) Hx of cornea transplant BL Hx of mastectomy BILATERAL Hx of colonoscopy History of left knee replacement H/O cataract removal with insertion of prosthetic lens bilateral Family History Other Family history of diabetes mellitus Denies family history of Ovarian cancer Breast cancer Colorectal cancer Social History Smoking Status: Never smoker Second Hand Exposure: No; Do You Dip or Chew Tobacco: No; Hx Alcohol Use: No Hx Substance Use: No Preferred Language: Somali Communication Ability: Effective Visual Impairment: No Limitations [place] Required: No Beliefs That Will Affect Care: None Current Living Situation: Spouse Feels Safe at Home: Yes Assistive Devices: Wheelchair Allergies Allergies Allergy/AdvReac Type Severity Reaction Status Date / Time morphine Allergy Unknown RASH Verified 01/16/25 11:32 terazosin Allergy Verified 01/16/25 11:32 Home Meds Home Medications Medication Instructions Recorded Confirmed denosumab 60 mg/mL subcutaneous 60 mg subcut .EVERY 6 MONTHS 04/11/19 03/30/25 syringe (Prolia) fluorometholone 0.1 % eye 1 drp OPB 3XWK 04/11/19 03/30/25 drops,suspension ondansetron 4 mg disintegrating 4 mg translingual DAILY PRN Nausea 11/25/22 03/30/25 tablet paroxetine HCl 10 mg tablet 10 mg PO DAILY 11/25/22 03/30/25 omeprazole 40 mg capsule,delayed 40 mg PO DAILY 06/09/24 03/30/25 release atorvastatin 40 mg tablet 40 mg PO HS 08/15/24 03/30/25 cyanocobalamin (vitamin B-12) 2,000 mcg PO DAILY 02/23/25 03/30/25 1,000 mcg tablet acetaminophen 500 mg tablet 1,000 mg PO BID 03/30/25 03/30/25 amlodipine 10 mg tablet 10 mg PO DAILY 03/30/25 03/30/25 lisinopril 10 mg tablet 10 mg PO DAILY 03/30/25 03/30/25 metoprolol succinate 25 mg 25 mg PO HS 03/30/25 03/30/25 tablet,extended release 24 hr Previous Rx's Medication Instructions Recorded aspirin 81 mg tablet,delayed 81 mg PO DAILY #30 tabs 06/10/24 release (Adult Low Dose Aspirin) Results & Data (ED) Vital Signs Vital Signs - 24 hr 03/30/25 19:22 03/30/25 19:22 03/30/25 19:34 Temperature 36.3 C L Temperature Source Oral Pulse Rate 72 78 Pulse Rate [Apical] 73 Pulse Rate from SpO2 Sensor Pulse Rhythm Pulse Rhythm [Apical] Regular Pulse Strength [Apical] Normal Respiratory Rate 18 20 Respiratory Effort / Characteristics Non-Labored Spontaneous Non-Labored Spontaneous Respiratory Depth Normal Normal Respiratory Pattern Regular Blood Pressure 101/50 L Blood Pressure [Right Arm] 124/74 Blood Pressure Mean 67 Blood Pressure Mean [Right Arm] 90 Blood Pressure Position Lying Blood Pressure Position [Right Arm] Lying Pulse Oximetry 97 98 Oxygen Delivery Method Room Air Room Air Sepsis Recent Fever Within 48 Hours No Sepsis New/Unexplained Change in Mental Status N/A Sepsis Action Taken by Nursing No Action Required 03/30/25 19:34 03/30/25 20:00 03/30/25 20:00 Temperature Temperature Source Pulse Rate 71 63 Pulse Rate [Apical] Pulse Rate from SpO2 Sensor Pulse Rhythm Regular Pulse Rhythm [Apical] Pulse Strength [Apical] Respiratory Rate 20 24 Respiratory Effort / Characteristics Respiratory Depth Respiratory Pattern Blood Pressure 151/77 H 151/77 H Blood Pressure [Right Arm] Blood Pressure Mean 120 101 Blood Pressure Mean [Right Arm] Blood Pressure Position Blood Pressure Position [Right Arm] Pulse Oximetry 95 Oxygen Delivery Method Room Air Sepsis Recent Fever Within 48 Hours Sepsis New/Unexplained Change in Mental Status Sepsis Action Taken by Nursing 03/30/25 20:12 03/30/25 20:15 03/30/25 20:15 Temperature Temperature Source Pulse Rate 65 66 Pulse Rate [Apical] Pulse Rate from SpO2 Sensor Pulse Rhythm Pulse Rhythm [Apical] Pulse Strength [Apical] Respiratory Rate 15 13 Respiratory Effort / Characteristics Respiratory Depth Respiratory Pattern Blood Pressure 138/100 Blood Pressure [Right Arm] Blood Pressure Mean 104 Blood Pressure Mean [Right Arm] Blood Pressure Position Blood Pressure Position [Right Arm] Pulse Oximetry 94 Oxygen Delivery Method Sepsis Recent Fever Within 48 Hours Sepsis New/Unexplained Change in Mental Status Sepsis Action Taken by Nursing 03/30/25 20:27 03/30/25 20:46 03/30/25 20:57 Temperature Temperature Source Pulse Rate 64 64 Pulse Rate [Apical] Pulse Rate from SpO2 Sensor Pulse Rhythm Pulse Rhythm [Apical] Pulse Strength [Apical] Respiratory Rate 15 18 Respiratory Effort / Characteristics Respiratory Depth Respiratory Pattern Blood Pressure 104/50 L Blood Pressure [Right Arm] Blood Pressure Mean 63 Blood Pressure Mean [Right Arm] Blood Pressure Position Blood Pressure Position [Right Arm] Pulse Oximetry 95 Oxygen Delivery Method Sepsis Recent Fever Within 48 Hours Sepsis New/Unexplained Change in Mental Status Sepsis Action Taken by Nursing 03/30/25 21:00 03/30/25 21:45 03/30/25 21:45 Temperature Temperature Source Pulse Rate 69 Pulse Rate [Apical] Pulse Rate from SpO2 Sensor Pulse Rhythm Pulse Rhythm [Apical] Pulse Strength [Apical] Respiratory Rate 19 Respiratory Effort / Characteristics Respiratory Depth Respiratory Pattern Blood Pressure 113/63 113/63 Blood Pressure [Right Arm] Blood Pressure Mean 87 87 Blood Pressure Mean [Right Arm] Blood Pressure Position Blood Pressure Position [Right Arm] Pulse Oximetry Oxygen Delivery Method Sepsis Recent Fever Within 48 Hours Sepsis New/Unexplained Change in Mental Status Sepsis Action Taken by Nursing 03/30/25 21:48 03/30/25 21:51 03/30/25 22:15 Temperature Temperature Source Pulse Rate 67 67 Pulse Rate [Apical] Pulse Rate from SpO2 Sensor Pulse Rhythm Pulse Rhythm [Apical] Pulse Strength [Apical] Respiratory Rate 17 21 Respiratory Effort / Characteristics Respiratory Depth Respiratory Pattern Blood Pressure 135/61 Blood Pressure [Right Arm] Blood Pressure Mean 76 Blood Pressure Mean [Right Arm] Blood Pressure Position Blood Pressure Position [Right Arm] Pulse Oximetry Oxygen Delivery Method Sepsis Recent Fever Within 48 Hours Sepsis New/Unexplained Change in Mental Status Sepsis Action Taken by Nursing 03/30/25 22:15 03/30/25 22:18 03/30/25 22:24 Temperature Temperature Source Pulse Rate 65 66 Pulse Rate [Apical] Pulse Rate from SpO2 Sensor 65 67 Pulse Rhythm Pulse Rhythm [Apical] Pulse Strength [Apical] Respiratory Rate 17 19 Respiratory Effort / Characteristics Respiratory Depth Respiratory Pattern Blood Pressure 135/61 Blood Pressure [Right Arm] Blood Pressure Mean 76 Blood Pressure Mean [Right Arm] Blood Pressure Position Blood Pressure Position [Right Arm] Pulse Oximetry 94 93 Oxygen Delivery Method Sepsis Recent Fever Within 48 Hours Sepsis New/Unexplained Change in Mental Status Sepsis Action Taken by Nursing 03/30/25 22:30 03/30/25 22:30 03/30/25 22:30 Temperature Temperature Source Pulse Rate Pulse Rate [Apical] Pulse Rate from SpO2 Sensor Pulse Rhythm Pulse Rhythm [Apical] Pulse Strength [Apical] Respiratory Rate Respiratory Effort / Characteristics Respiratory Depth Respiratory Pattern Blood Pressure 119/62 119/62 119/62 Blood Pressure [Right Arm] Blood Pressure Mean 84 84 84 Blood Pressure Mean [Right Arm] Blood Pressure Position Blood Pressure Position [Right Arm] Pulse Oximetry Oxygen Delivery Method Sepsis Recent Fever Within 48 Hours Sepsis New/Unexplained Change in Mental Status Sepsis Action Taken by Nursing 03/30/25 22:33 03/30/25 22:45 03/30/25 22:45 Temperature Temperature Source Pulse Rate 72 67 Pulse Rate [Apical] Pulse Rate from SpO2 Sensor 70 66 Pulse Rhythm Pulse Rhythm [Apical] Pulse Strength [Apical] Respiratory Rate 24 17 Respiratory Effort / Characteristics Respiratory Depth Respiratory Pattern Blood Pressure 136/68 Blood Pressure [Right Arm] Blood Pressure Mean 91 Blood Pressure Mean [Right Arm] Blood Pressure Position Blood Pressure Position [Right Arm] Pulse Oximetry 94 93 Oxygen Delivery Method Sepsis Recent Fever Within 48 Hours Sepsis New/Unexplained Change in Mental Status Sepsis Action Taken by Nursing 03/30/25 23:00 03/30/25 23:00 03/30/25 23:03 Temperature Temperature Source Pulse Rate 68 Pulse Rate [Apical] Pulse Rate from SpO2 Sensor 68 Pulse Rhythm Pulse Rhythm [Apical] Pulse Strength [Apical] Respiratory Rate 20 Respiratory Effort / Characteristics Respiratory Depth Respiratory Pattern Blood Pressure 129/75 129/75 Blood Pressure [Right Arm] Blood Pressure Mean 95 95 Blood Pressure Mean [Right Arm] Blood Pressure Position Blood Pressure Position [Right Arm] Pulse Oximetry 95 Oxygen Delivery Method Sepsis Recent Fever Within 48 Hours Sepsis New/Unexplained Change in Mental Status Sepsis Action Taken by Nursing 03/30/25 23:15 03/30/25 23:29 03/31/25 00:00 Temperature Temperature Source Pulse Rate 66 69 70 Pulse Rate [Apical] Pulse Rate from SpO2 Sensor Pulse Rhythm Pulse Rhythm [Apical] Pulse Strength [Apical] Respiratory Rate 18 15 Respiratory Effort / Characteristics Respiratory Depth Respiratory Pattern Blood Pressure 130/61 146/69 H Blood Pressure [Right Arm] Blood Pressure Mean 67 94 Blood Pressure Mean [Right Arm] Blood Pressure Position Blood Pressure Position [Right Arm] Pulse Oximetry 92 96 Oxygen Delivery Method Room Air Room Air Sepsis Recent Fever Within 48 Hours Sepsis New/Unexplained Change in Mental Status Sepsis Action Taken by [facility] Medications Current Medication List: was personally reviewed by me Laboratory Data Attestation: I reviewed the patient's lab results. 03/30/25 19:26 03/30/25 19:26 Lab Results 03/30/25 03/30/25 03/30/25 Range/Units 19:26 21:10 23:03 WBC 4.77 L (4.8-10.8) K/ul RBC 3.86 L (4.20-5.40) M/uL Hgb 11.7 L (12.0-16.0) g/dl Hct 36.2 L (37.0-47.0) % MCV 93.8 (80.0-100.0) fL MCH 30.3 (25.0-34.0) pg MCHC 32.3 (32.0-36.0) g/dL RDW Std Deviation 51.6 H (36.4-46.3) fL RDW Coeff of Manfred 14.8 H (11.5-14.5) % Plt Count 261 (130-400) K/uL MPV 9.5 (9.4-12.4) fL Neutrophils % (Manual) 48 % Lymphocytes % (Manual) 16 % Reactive Lymphs % (Man) 30 % Monocytes % (Manual) 3 % Eosinophils % (Manual) 3 % Neutrophils # (Manual) 2.29 (1.40-6.50) K/uL Total Absolute Neuts 2.29 (1.4-6.5) K/uL Lymphocytes # (Manual) 0.76 L (1.2-3.4) K/uL Reactive Lymphs # 1.43 K/uL Total Abs Lymphocytes 2.19 (1.2-3.4) K/uL Monocytes # (Manual) 0.14 (0.11-0.59) K/uL Eosinophils # (Manual) 0.14 (0-0.50) K/uL PT 10.3 (9.0-12.0) Seconds INR 0.9 (0.9-1.1) APTT 22 (21-31) Seconds PTT Ratio 0.8 Sodium 134 L (136-145) mmol/L Potassium 4.1 (3.5-5.1) mmol/L Chloride 103 (98-107) mmol/L Carbon Dioxide 22 (21-32) mmol/L Anion Gap 9 (3-11) BUN 21 (6-23) mg/dl Creatinine 1.66 H (0.6-1.2) mg/dl Est Cr Clr Drug Dosing 17.3 ml/min eGFR 29.31 BUN/Creatinine Ratio 12.7 (10-20) Glucose 131 H (70-99(Fasting)) mg/dl Calcium 9.3 (8.6-10.3) mg/dl Magnesium 2.2 (1.7-2.4) mg/dl Total Bilirubin 0.4 (0.2-1.0) mg/dl AST 14 (13-39) U/L ALT 8 (7-52) U/L Alkaline Phosphatase 142 H (34-104) U/L Troponin I High Sens 13.1 (0-14) pg/ml Total Protein 6.7 (6.0-8.3) gm/dl Albumin 4.1 (3.4-5.0) gm/dl Globulin 2.6 (2.5-4.0) gm/dl Albumin/Globulin Ratio 1.6 (0.9-2) TSH 8.251 H (0.300-4.500) uIu/ml Free T4 0.93 (0.61-1.60) ng/dl Urine Color Yellow Urine Appearance Clear (Clear) Urine pH 6.5 (4.5-7.5) Ur Specific [place] 1.013 (1.000-1.030) Urine Protein Negative (Negative) Urine Glucose (UA) Negative (Negative) Urine Ketones Negative (Negative) Urine Blood Negative (Negative) Urine Nitrite Negative (Negative) Urine Bilirubin Negative (Negative) Urine Urobilinogen Negative (Negative) Ur Leukocyte Esterase Negative (Negative) Urine Comment Blood Type O Negative Antibody Screen NEGATIVE Administered Medications Lactated Ringer's (Lr) 1,000 mls @ 100 mls/hr IV .Q10H STA Stop: 03/31/25 10:28 Last Admin: 03/31/25 00:47 Dose: 100 mls/hr Documented By: KMB Discontinued Medications Sodium Chloride (Nss) 500 mls @ 999 mls/hr IV .Q31M ONE Stop: 03/30/25 20:03 Last Infusion: 03/30/25 21:46 Dose: Infused Documented By: Admin: 03/30/25 19:40 Dose: 999 mls/hr Documented By: GREER Acetaminophen (Ofirmev) 1,000 mg in 100 mls @ 400 mls/hr IV NOW STA Stop: 03/30/25 19:47 Last Infusion: 03/30/25 21:05 Dose: Infused Documented By: Admin: 03/30/25 19:41 Dose: 400 mls/hr Documented By: GREER Famotidine (Pepcid 20mg Iv Push) 20 mg in 5 mls @ 2.5 mls/min IV NOW STA Stop: 03/30/25 19:34 Last Admin: 03/30/25 19:41 Dose: 2.5 mls/min Documented By: GREER Pantoprazole Sodium 80 mg/ (Dextrose) 120 mls @ 400 mls/hr IV NOW ONE Stop: 03/30/25 20:54 Last Infusion: 03/30/25 21:46 Dose: Infused Documented By: Admin: 03/30/25 21:17 Dose: 400 mls/hr Documented By: GREER Sodium Chloride (Nss) 500 mls @ 999 mls/hr IV .Q31M ONE Stop: 03/30/25 22:12 Last Infusion: 03/30/25 22:41 Dose: Infused Documented By: Admin: 03/30/25 21:49 Dose: 999 mls/hr Documented By: GREER Sodium Chloride (Nss) 500 mls @ 999 mls/hr IV .Q31M ONE Stop: 03/30/25 23:46 Last Infusion: 03/31/25 00:16 Dose: Infused Documented By: Admin: 03/30/25 23:41 Dose: 999 mls/hr Documented By: LINDA Ioversol (Optiray 320 100ml) 93 ml IV ONCE ONE Stop: 03/30/25 22:03 Last Admin: 03/30/25 22:03 Dose: 93 ml Documented By: ISABELLA Ondansetron HCl (Ondansetron Inj 2 Mg/Ml 2 Ml Vial) Confirm Administered Dose 4 mg .ROUTE .STK-MED ONE Stop: 03/30/25 19:31 Last Admin: 03/30/25 19:34 Dose: 4 mg Documented By: [facility] Imaging Data Radiologist's Impression: Abdomen/Pelvis CT 03/30/25 19:33 Exam(s): CT ABDOMEN + PELVIS With Contrast IV Amt: OPTIRAY 320 93ML EXAM: CT Abdomen and Pelvis With Intravenous Contrast CLINICAL HISTORY: Reason for exam: vom, abd pain, possible obstruction. TECHNIQUE: Axial computed tomography images of the abdomen and pelvis with intravenous contrast. CTDI is 8.99 mGy and DLP is 402.83 mGy-cm. Automated exposure control was utilized for the study. A dose lowering technique was utilized adhering to the principles of ALARA. CONTRAST: Patient received OPTIRAY 320 93ML of IV contrast COMPARISON: 02/23/2025 FINDINGS: Lung bases: Unremarkable. No mass. No consolidation. Mediastinum: There is a 5.5 cm hiatal hernia located behind the heart. ABDOMEN: Liver: Unremarkable. No mass. Gallbladder and bile ducts: Gallbladder is fully distended but nondilated measuring 4.7 cm short axis diameter. There is at least 1 gallstone measuring 1.4 cm. No surrounding inflammation is seen. Pancreas: Unremarkable. No mass. No ductal dilation. Spleen: Unremarkable. No splenomegaly. Adrenals: Unremarkable. No mass. Kidneys and ureters: Unremarkable. No solid mass. No hydronephrosis. Stomach and bowel: Diverticulosis of the lower left and sigmoid colon without evidence of acute diverticulitis. There is fluid within the right and transverse colon suggesting ileus or enteritis and mild wall thickening involving the mid left colon consistent with mild colitis. No pneumoperitoneum or abscess. No obstruction. PELVIS: Appendix: No findings to suggest acute appendicitis. Bladder: Unremarkable. No mass. Reproductive: Unremarkable as visualized. ABDOMEN and PELVIS: Intraperitoneal space: See above. Bones/joints: Healing right superior and inferior pubic rami fractures as well as right sacral fracture. 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 No dislocation. Soft tissues: Unremarkable. 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 No signs of leakage. 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 Lymph nodes: Unremarkable. No enlarged lymph nodes. IMPRESSION: 1. Diverticulosis of the lower left and sigmoid colon without evidence of acute diverticulitis. There is fluid within the right and transverse colon suggesting ileus or enteritis and mild wall thickening involving the mid left colon consistent with mild colitis. No pneumoperitoneum or abscess. 2. 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 No signs of leakage. 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 3. There is a 5.5 cm hiatal hernia located behind the heart. Electronically signed by: Michel Brumfield MD 03/30/25 23:14 PM Chest X-Ray 03/30/25 19:34 Exam(s): XR CXR 1 VIEW EXAM: XR Chest, 1 View CLINICAL HISTORY: Reason for exam: weakness. TECHNIQUE: Frontal view of the chest. COMPARISON: 02/23/2025 FINDINGS: Lungs: Mild emphysematous changes in the lungs. No acute infiltrate or consolidation is seen. Pleural space: Unremarkable. No pneumothorax. Heart: The cardiac silhouette is mildly enlarged, similar to previous. 6.5 cm hiatal hernia projecting behind the heart, unchanged. Mediastinum: Unremarkable. Normal mediastinal contour. Bones/joints: Mild degenerative changes in the right shoulder. No acute fracture. Upper abdomen: Unremarkable as visualized. No pneumoperitoneum under the diaphragm. IMPRESSION: 1. The cardiac silhouette is mildly enlarged, similar to previous. 2. 6.5 cm hiatal hernia projecting behind the heart, unchanged. 3. Mild emphysematous changes in the lungs. No acute infiltrate or consolidation is seen. Electronically signed by: Michel Brumfield MD 03/30/25 22:58 PM Discharge Plan Visit Data Chief Complaint: Illness Stated Complaint: ILLNESS ED Provider: Shawn Riggins Discharge Problem: Hypotension, Diffuse abdominal pain, Vomiting, Colitis, GI bleed Patient Disposition: Admitted As Inpatient Condition: Serious Forms Stand Alone Forms: [facility] [employer] Prescriptions Prescriptions: No Action fluorometholone 0.1 % Drops,Suspension 1 drp OPB 3XWK Rx Instructions: mon/wed/fri Prolia 60 mg/mL Syringe 60 mg SUBCUT .EVERY 6 MONTHS Rx Instructions: UNABLE TO VERIFY paroxetine HCl 10 mg tablet 10 mg PO DAILY ondansetron 4 mg tablet,disintegrating 4 mg translingual DAILY PRN (Reason: Nausea) omeprazole 40 mg capsule,delayed release(DR/EC) 40 mg PO DAILY aspirin [Adult Low Dose Aspirin] 81 mg tablet,delayed release (DR/EC) 81 mg PO DAILY Qty: 30 0RF atorvastatin 40 mg tablet 40 mg PO HS cyanocobalamin (vitamin B-12) 1,000 mcg tablet 2,000 mcg PO DAILY metoprolol succinate 25 mg tablet extended release 24 hr 25 mg PO HS acetaminophen [Tylenol Ex Str Arthritis Pain] 500 mg Tablet 1,000 mg PO BID lisinopril 10 mg tablet 10 mg PO DAILY amlodipine 10 mg tablet 10 mg PO DAILY Referrals Referrals: Kailee Longoria MD [Primary Care Provider] - Discharge Problem: Hypotension Qualifiers: Hypotension type: unspecified hypotension type Qualified Code(s): I95.9 - Hypotension, unspecified Vomiting Qualifiers: Vomiting type: unspecified Nausea presence: with nausea Qualified Code(s): R 11.2 - Nausea with vomiting, unspecified GI bleed Qualifiers: GI bleed type/associated pathology: melena Qualified Code(s): K92.1 - Melena
[2025-03-30] MEDS: ACETAMINOPHEN 1,000 MG/100 ML VIAL IV STA (19:41)
[2025-03-30] MEDS: FAMOTIDINE 20MG IV PUSH 20 MG/5 ML SYR IV STA (19:41)
[2025-03-30 19:47] LABS: Hematocrit (blood only) 36.2 % (37.0-47.0); Hemoglobin 11.7 g/dl (12.0-16.0); Mean Corpuscular Hemoglobin 30.3 pg (25.0-34.0); Mean Corpuscular Hgb Conc 32.3 g/dL (32.0-36.0); Mean Corpuscular Volume 93.8 fL (80.0-100.0); Mean Platelet Volume 9.5 fL (9.4-12.4); Platelet Count 261 K/uL (130-400); RDW Coefficient of Variation 14.8 % (11.5-14.5); RDW Standard Deviation 51.6 fL (36.4-46.3); Red Blood Count 3.86 M/uL (4.20-5.40)
[2025-03-30 20:03] LABS: Albumin Globulin Ratio 1.6 (0.9-2); Albumin Level 4.1 gm/dl (3.4-5.0); BUN Creatinine Ratio 12.7 (10-20); Bilirubin,Total 0.4 mg/dl (0.2-1.0); Calcium 9.3 mg/dl (8.6-10.3); Creatinine Clr Calc Pharmacy 17.3 ml/min; Globulin 2.6 gm/dl (2.5-4.0); Magnesium 2.2 mg/dl (1.7-2.4); Potassium 4.1 mmol/L (3.5-5.1); Total Protein 6.7 gm/dl (6.0-8.3)
[2025-03-30 20:06] LABS: Neutrophils % (manual) 48 %
[2025-03-30 20:09] LABS: Troponin I High Sensitivity 13.1 pg/ml (0-14)
[2025-03-30 20:27] LABS: INR 0.9 (0.9-1.1); Partial Thromboplastin Ratio 0.8; Partial Thromboplastin Time 22 Seconds (21-31); Prothrombin Time 10.3 Seconds (9.0-12.0)
[2025-03-30 20:54] LABS: T4 Free Thyroxine 0.93 ng/dl (0.61-1.60)
[2025-03-30] MEDS: PANTOprazole 80 MG in DEXTROSE 5% 100 ML IV ONE (21:17)
[2025-03-30] MEDS: OPTIRAY 320 100ml IV ONE (22:03)
--- NOTE | 2025-03-30 22:59 | XRay Report ---
Exam(s): XR CXR 1 VIEW EXAM: XR Chest, 1 View CLINICAL HISTORY: Reason for exam: weakness. TECHNIQUE: Frontal view of the chest. COMPARISON: 02/23/2025 FINDINGS: Lungs: Mild emphysematous changes in the lungs. No acute infiltrate or consolidation is seen. Pleural space: Unremarkable. No pneumothorax. Heart: The cardiac silhouette is mildly enlarged, similar to previous. 6.5 cm hiatal hernia projecting behind the heart, unchanged. Mediastinum: Unremarkable. Normal mediastinal contour. Bones/joints: Mild degenerative changes in the right shoulder. No acute fracture. Upper abdomen: Unremarkable as visualized. No pneumoperitoneum under the diaphragm. IMPRESSION: 1. The cardiac silhouette is mildly enlarged, similar to previous. 2. 6.5 cm hiatal hernia projecting behind the heart, unchanged. 3. Mild emphysematous changes in the lungs. No acute infiltrate or consolidation is seen. Electronically signed by: Michel Brumfield MD 03/30/25 22:58 PM
[2025-03-30 23:14] LABS: Appearance Urine Clear (Clear); Bilirubin Urine Negative (Negative); Blood Urine Negative (Negative); Color Urine Yellow; Glucose Urine UA Negative (Negative); Ketones Urine Negative (Negative); Leukocyte Esterase Urine Negative (Negative); Nitrite Urine Negative (Negative); Protein Urine Negative (Negative); Specific Gravity Urine 1.013 (1.000-1.030); Urobilinogen Urine Negative (Negative); pH Urine 6.5 (4.5-7.5)
--- NOTE | 2025-03-30 23:15 | CT Scan Report ---
Exam(s): CT ABDOMEN + PELVIS With Contrast IV Amt: OPTIRAY 320 93ML EXAM: CT Abdomen and Pelvis With Intravenous Contrast CLINICAL HISTORY: Reason for exam: vom, abd pain, possible obstruction. TECHNIQUE: Axial computed tomography images of the abdomen and pelvis with intravenous contrast. CTDI is 8.99 mGy and DLP is 402.83 mGy-cm. Automated exposure control was utilized for the study. A dose lowering technique was utilized adhering to the principles of ALARA. CONTRAST: Patient received OPTIRAY 320 93ML of IV contrast COMPARISON: 02/23/2025 FINDINGS: Lung bases: Unremarkable. No mass. No consolidation. Mediastinum: There is a 5.5 cm hiatal hernia located behind the heart. ABDOMEN: Liver: Unremarkable. No mass. Gallbladder and bile ducts: Gallbladder is fully distended but nondilated measuring 4.7 cm short axis diameter. There is at least 1 gallstone measuring 1.4 cm. No surrounding inflammation is seen. Pancreas: Unremarkable. No mass. No ductal dilation. Spleen: Unremarkable. No splenomegaly. Adrenals: Unremarkable. No mass. Kidneys and ureters: Unremarkable. No solid mass. No hydronephrosis. Stomach and bowel: Diverticulosis of the lower left and sigmoid colon without evidence of acute diverticulitis. There is fluid within the right and transverse colon suggesting ileus or enteritis and mild wall thickening involving the mid left colon consistent with mild colitis. No pneumoperitoneum or abscess. No obstruction. PELVIS: Appendix: No findings to suggest acute appendicitis. Bladder: Unremarkable. No mass. Reproductive: Unremarkable as visualized. ABDOMEN and PELVIS: Intraperitoneal space: See above. Bones/joints: Healing right superior and inferior pubic rami fractures as well as right sacral fracture. 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 No dislocation. Soft tissues: Unremarkable. 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 No signs of leakage. 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 Lymph nodes: Unremarkable. No enlarged lymph nodes. IMPRESSION: 1. Diverticulosis of the lower left and sigmoid colon without evidence of acute diverticulitis. There is fluid within the right and transverse colon suggesting ileus or enteritis and mild wall thickening involving the mid left colon consistent with mild colitis. No pneumoperitoneum or abscess. 2. 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 No signs of leakage. 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 3. There is a 5.5 cm hiatal hernia located behind the heart. Electronically signed by: Michel Brumfield MD 03/30/25 23:14 PM
--- NOTE | 2025-03-30 23:43 | History & Physical Report ---
Date of Service March 30, 2025 Assessment & Plan (1) Hiatal hernia: (2) Right iliac artery stenosis: (3) Melena: (4) GI bleed: (5) Vomiting: Plan 89 year old female presents to the ER with nausea and vomiting. Stool noted to be black in the ER and heme positive with possible coffee ground vomiting. Weight loss 10lb in last month. 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 asymptomatic, follow up as outpatient VTE Prophylaxis - SCDs Disposition - admit to med/tele Admission and Anticipated Discharge Date Admission Date: March 30, 2025 History of Present Illness Chief Complaint: Nausea, vomiting Primary Care Provider: Kailee Longoria MD Alem Goldsmith is an 89 year old female who presents to the ER with generalized illness, nausea and vomiting. She reports her symptoms started around 6pm with nausea and vomiting with associated lightheadedness. She reports reduced bowel movements but with tenesmus, smaller harder bowel movements. No hematemesis, melena or hematochezia. No prior GI bleed, no NSAID use or recently change in medications. She takes aspirin daily for primary prophylaxis. She notes unintentional weight loss 10 lb in last month. Eating and drinking ok but her appetite has been worse. She takes omeprazole daily but is unsure why she is on this. She denies any knowledge of her hiatal hernia, reflux or acid taste in her mouth. While in the ER she had black stool which was heme positive. She also had some vomiting which was concerning for coffee-ground emesis. Allergies Allergy/AdvReac Type Severity Reaction Status Date / Time morphine Allergy Unknown RASH Verified 01/16/25 11:32 terazosin Allergy Verified 01/16/25 11:32 Home Medications Medication Instructions Recorded Confirmed Type denosumab 60 mg/mL subcutaneous 60 mg subcut .EVERY 6 MONTHS 04/11/19 03/30/25 History syringe (Prolia) fluorometholone 0.1 % eye 1 drp OPB [id number] 04/11/19 03/30/25 History drops,suspension ondansetron 4 mg disintegrating 4 mg translingual DAILY PRN Nausea 11/25/22 03/30/25 History tablet paroxetine HCl 10 mg tablet 10 mg PO DAILY 11/25/22 03/30/25 History omeprazole 40 mg capsule,delayed 40 mg PO DAILY 06/09/24 03/30/25 History release aspirin 81 mg tablet,delayed 81 mg PO DAILY #30 tabs 06/10/24 03/30/25 Rx release (Adult Low Dose Aspirin) atorvastatin 40 mg tablet 40 mg PO HS 08/15/24 03/30/25 History cyanocobalamin (vitamin B-12) 2,000 mcg PO DAILY 02/23/25 03/30/25 History 1,000 mcg tablet acetaminophen 500 mg tablet 1,000 mg PO BID 03/30/25 03/30/25 History amlodipine 10 mg tablet 10 mg PO DAILY 03/30/25 03/30/25 History lisinopril 10 mg tablet 10 mg PO DAILY 03/30/25 03/30/25 History metoprolol succinate 25 mg 25 mg PO HS 03/30/25 03/30/25 History tablet,extended release 24 hr Past Med/Surg History Problem List (Updated 03/31/25 @ 01:22 by Shawn Riggins MD) GI bleed (Acute) Colitis (Acute) Vomiting (Acute) Diffuse abdominal pain (Acute) Hypotension (Acute) Melena Right iliac artery stenosis Hiatal hernia Right shoulder pain Pre-syncope (Acute) Bradycardia (Acute) GERALD (acute kidney injury) (Acute) Dizziness (Acute) Pre-syncope Bradycardia Jaw pain (Acute) Rectal bleeding Rectal prolapse (Chronic) Osteoarthritis GERD (gastroesophageal reflux disease) controlled Medical History Fracture of right ulna Closed pelvic ring fracture Cancer L BREAST, DOUBLE MASTECTOMY - CHEMO (2015) Abnormal urinalysis CKD stage 3b, GFR 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 Drug reaction GERALD (acute kidney injury) Hypertension Limb alert care status LUE Osteoporosis Surgical History (Updated 03/30/25 @ 23:53 by Leon Fitzpatrick MD) Hx of cornea transplant BL Hx of mastectomy BILATERAL Hx of colonoscopy History of left knee replacement H/O cataract removal with insertion of prosthetic lens bilateral Family History Other Family history of diabetes mellitus Denies family history of Ovarian cancer Breast cancer Colorectal cancer Social History Smoking Status: Never smoker Second Hand Exposure: No; Do You Dip or Chew Tobacco: No; Hx Alcohol Use: No Hx Substance Use: No Preferred Language: [place] Communication Ability: Effective Visual Impairment: No Limitations Cost Accounting Analyst Required: No Beliefs That Will Affect Care: None Current Living Situation: Spouse Feels Safe at Home: Yes Assistive Devices: Wheelchair Review of Systems Review of Systems: All systems reviewed & are unremarkable except as noted in HPI & below Physical Exam Constitutional: WD/WN, vitals as above ENMT: external ear and nose normal, oropharynx normal Respiratory: normal respiratory effort, lungs clear to auscultation Cardiovascular: RRR, no murmur, no edema Gastrointestinal (Abdomen): Percussion/Palpation: + abdomen tender (mild lower abdomen and epigastric pain) and abdomen soft; no guarding and abdomen not rigid Skin: no rashes, warm and dry Neurologic: moves all extremities and awake; not confused Psychiatric: A+Ox3, euthymic affect Results & Data Results & Data Vital Signs (Past 12 Hours) Vital Signs Temp Pulse Pulse Resp BP BP Pulse Ox 03/30/25 23:29 69 03/30/25 23:03 68 20 95 03/30/25 23:00 129/75 03/30/25 23:00 129/75 03/30/25 22:45 136/68 03/30/25 22:45 67 17 93 03/30/25 22:33 72 24 94 03/30/25 22:30 119/62 03/30/25 22:30 119/62 03/30/25 22:30 119/62 03/30/25 22:24 66 19 93 03/30/25 22:18 65 17 94 03/30/25 22:15 135/61 03/30/25 22:15 135/61 03/30/25 21:51 67 21 03/30/25 21:48 67 17 03/30/25 21:45 113/63 03/30/25 21:45 113/63 03/30/25 21:00 69 19 03/30/25 20:57 64 18 95 03/30/25 20:46 104/50 L 03/30/25 20:27 64 15 03/30/25 20:15 66 13 94 03/30/25 20:15 138/100 03/30/25 20:12 65 15 03/30/25 20:00 63 24 151/77 H 03/30/25 20:00 151/77 H 03/30/25 19:34 71 20 95 03/30/25 19:34 73 20 124/74 98 03/30/25 19:22 36.3 C L 78 18 101/50 L 97 03/30/25 19:22 72 O2 Del Method 03/30/25 23:29 03/30/25 23:03 03/30/25 23:00 03/30/25 23:00 03/30/25 22:45 03/30/25 22:45 03/30/25 22:33 03/30/25 22:30 03/30/25 22:30 03/30/25 22:30 03/30/25 22:24 03/30/25 22:18 03/30/25 22:15 03/30/25 22:15 03/30/25 21:51 03/30/25 21:48 03/30/25 21:45 03/30/25 21:45 03/30/25 21:00 03/30/25 20:57 03/30/25 20:46 03/30/25 20:27 03/30/25 20:15 03/30/25 20:15 03/30/25 20:12 03/30/25 20:00 03/30/25 20:00 03/30/25 19:34 Room Air 03/30/25 19:34 Room Air 03/30/25 19:22 Room Air 03/30/25 19:22 Laboratory Results Abnormal lab results 03/30/25 Range/Units 19:26 WBC 4.77 L (4.8-10.8) K/ul RBC 3.86 L (4.20-5.40) M/uL Hgb 11.7 L (12.0-16.0) g/dl Hct 36.2 L (37.0-47.0) % RDW Std Deviation 51.6 H (36.4-46.3) fL RDW Coeff of Manfred 14.8 H (11.5-14.5) % Lymphocytes # (Manual) 0.76 L (1.2-3.4) K/uL Sodium 134 L (136-145) mmol/L Creatinine 1.66 H (0.6-1.2) mg/dl Glucose 131 H (70-99(Fasting)) mg/dl Alkaline Phosphatase 142 H (34-104) U/L TSH 8.251 H (0.300-4.500) uIu/ml Diagnostic Findings XR Chest, 1 View CLINICAL HISTORY: Reason for exam: weakness. TECHNIQUE: Frontal view of the chest. COMPARISON: 02/23/2025 FINDINGS: Lungs: Mild emphysematous changes in the lungs. No acute infiltrate or consolidation is seen. Pleural space: Unremarkable. No pneumothorax. Heart: The cardiac silhouette is mildly enlarged, similar to previous. 6.5 cm hiatal hernia projecting behind the heart, unchanged. Mediastinum: Unremarkable. Normal mediastinal contour. Bones/joints: Mild degenerative changes in the right shoulder. No acute fracture. Upper abdomen: Unremarkable as visualized. No pneumoperitoneum under the diaphragm. IMPRESSION: 1. The cardiac silhouette is mildly enlarged, similar to previous. 2. 6.5 cm hiatal hernia projecting behind the heart, unchanged. 3. Mild emphysematous changes in the lungs. No acute infiltrate or consolidation is seen. CT Abdomen and Pelvis With Intravenous Contrast CLINICAL HISTORY: Reason for exam: vom, abd pain, possible obstruction. TECHNIQUE: Axial computed tomography images of the abdomen and pelvis with intravenous contrast. CTDI is 8.99 mGy and DLP is 402.83 mGy-cm. Automated exposure control was utilized for the study. A dose lowering technique was utilized adhering to the principles of ALARA. CONTRAST: Patient received OPTIRAY 320 93ML of IV contrast COMPARISON: 02/23/2025 FINDINGS: Lung bases: Unremarkable. No mass. No consolidation. Mediastinum: There is a 5.5 cm hiatal hernia located behind the heart. ABDOMEN: Liver: Unremarkable. No mass. Gallbladder and bile ducts: Gallbladder is fully distended but nondilated measuring 4.7 cm short axis diameter. There is at least 1 gallstone measuring 1 .4 cm. No surrounding inflammation is seen. Pancreas: Unremarkable. No mass. No ductal dilation. Spleen: Unremarkable. No splenomegaly. Adrenals: Unremarkable. No mass. Kidneys and ureters: Unremarkable. No solid mass. No hydronephrosis. Stomach and bowel: Diverticulosis of the lower left and sigmoid colon without evidence of acute diverticulitis. There is fluid within the right and transverse colon suggesting ileus or enteritis and mild wall thickening involving the mid left colon consistent with mild colitis. No pneumoperitoneum or abscess. No obstruction. PELVIS: Appendix: No findings to suggest acute appendicitis. Bladder: Unremarkable. No mass. Reproductive: Unremarkable as visualized. ABDOMEN and PELVIS: Intraperitoneal space: See above. Bones/joints: Healing right superior and inferior pubic rami fractures as well as right sacral fracture. 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 No dislocation. Soft tissues: Unremarkable. 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 No signs of leakage. 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 Lymph nodes: Unremarkable. No enlarged lymph nodes. IMPRESSION: 1. Diverticulosis of the lower left and sigmoid colon without evidence of acute diverticulitis. There is fluid within the right and transverse colon suggesting ileus or enteritis and mild wall thickening involving the mid left colon consistent with mild colitis. No pneumoperitoneum or abscess. 2. 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 No signs of leakage. 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 3. There is a 5.5 cm hiatal hernia located behind the heart. Medications Administered ER Medications Given: Normal saline 500ml bolus x3 Acetaminophen 1000mg IV Famotidine 20mg IV Pantoprazole 80mg IV ECG Rate (beats per minute): 66 Rhythm: normal sinus Findings: + PVC Comparison ECG Date: from (August 15, 2024) Change: the following changes noted (T wave amplitude has decreased in lateral leads) Code Status & VTE Plan Code Status Full VTE Prophylaxis Plan VTE Prophylaxis will be ordered: Yes Reason for no VTE drug order: Contraindicated PG Care Time/CCT Total # of Minutes Spent Total Time Spent with Patient: Total time spent is greater than 50% in coordination of care (as documented) at patient's floor/unit and/or counseling patient: Coding Level of Care Code 30958 INT INP/OBS CARE 3/75MIN Diagnoses Hiatal hernia K44.9 Right iliac artery stenosis I77.1 Melena K92.1 GI bleed K92.1 GI bleed type/associated pathology: melena Vomiting R11.2 Nausea presence: with nausea Vomiting type: unspecified (4) GI bleed GI bleed type/associated pathology: melena Qualified Code(s): K92.1 - Melena (5) Vomiting Nausea presence: with nausea Vomiting type: unspecified Qualified Code(s): R11.2 - Nausea with vomiting, unspecified
[2025-03-31] MEDS: LACTATED RINGER'S 1,000 ML IV STA (00:47)
[2025-03-31] MEDS ORDERED: ONDANSETRON INJ 2 MG/ML 2 ML VIAL IV PRN (01:49)
[2025-03-31 03:10] LABS: Hematocrit (blood only) 30.2 % (37.0-47.0)
[2025-03-31 08:37] LABS: BUN Creatinine Ratio 13.3 (10-20); Calcium 7.9 mg/dl (8.6-10.3); Creatinine Clr Calc Pharmacy 21.3 ml/min; Potassium 4.6 mmol/L (3.5-5.1)
[2025-03-31] MEDS: PANTOprazole 40 MG/10 ML SYR IV SCH (09:16)
[2025-03-31] MEDS: ACETAMINOPHEN 500 MG TAB PO SCH (09:16)
[2025-03-31] MEDS: PARoxetine HCL 10 MG TAB PO SCH (09:17)
[2025-03-31 09:20] LABS: Hematocrit (blood only) 29.9 % (37.0-47.0); Mean Corpuscular Hgb Conc 33.4 g/dL (32.0-36.0); Mean Corpuscular Volume 92.6 fL (80.0-100.0); Mean Platelet Volume 9.6 fL (9.4-12.4); Platelet Count 204 K/uL (130-400); RDW Coefficient of Variation 14.9 % (11.5-14.5); RDW Standard Deviation 51.1 fL (36.4-46.3); Red Blood Count 3.23 M/uL (4.20-5.40); White Blood Count 9.79 K/ul (4.8-10.8)
--- NOTE | 2025-03-31 09:51 | Gastrointestinal Consultation ---
Date of Consultation March 31, 2025 Assessment & Plan (1) Melena: 89 year old female with history of hypertension, breast cancer, GERD, obstructive sleep apnea (does not use CPAP), CKD-3 and others below admitted through the ED w/ report of coffee ground emesis in the ED and dark, tarry stools which were heme positive. No vomiting today. DDX discussed: esophagitis, MWT, gastritis, ulcer, AVM vs other. Agreeable to EGD evaluation 1. Coffee ground emesis/melena NPO Will discuss EGD timing w/ attending Continue IV PPI Trend HGB Monitor and document GI output Transfuse PRN per primary service 2. Weight loss CTAP reviewed EGD inpatient She may follow up as an outpatient to discuss colonoscopy I spent a total of 60 minutes on the date of service in review of patient's record, and previously obtained information in person and appropriate medical visit, discussion and education of plan, with patient and/or caregiver, placing orders for tests/referral/procedures as medically necessary and documentation of pertinent clinical information in patient's medical records for their visit today. Supervising Physician Co-Signing Physician Notes Coffee-ground emesis. No vomiting since admission. No previous history. Catalino es abdominal pain though she states her abdomen is somewhat sore today which potentially could be related to her vomiting. CT showed some fluid may be enteritis. Patient denied any bowel change leading up to this though she did have diarrhea in the emergency room. For EGD today for coffee-ground emesis and dark stool. She does have a 6 cm hiatal hernia. This could contribute to the symptoms. Patient is post fall with pelvic fracture and wrist fracture. Remote colonoscopy. History of Present Illness Reason for Consultation: Melena, coffee emesis, unintentional weight loss Requesting Physician: Rossana Gutierrez MD Attending Physician: Rossana Gutierrez MD History of Present Illness 89 year old female with history of hypertension, breast cancer, GERD, obstructive sleep apnea (does not use CPAP), CKD-3 and others below admitted through the ED w/ report of abd pain, nausea/vomiting (report of coffee ground emesis) and report of melena. GI was asked to evaluate. Pt was seen and evaluated, chart reviewed. Notes that she developed symptoms maybe two days ago. As her pain and emesis persisted, she sought ED care. In the ED she was noted to have heme positive black stool and coffee ground emesis. HGB 10 BUN 18 ASA 81 daily Denies any other NSAIDs or AC to tx CTAP 2024: . Diverticulosis of the lower left and sigmoid colon without evidence of acute diverticulitis. There is fluid within the right and transverse colon suggesting ileus or enteritis and mild wall thickening involving the mid left colon consistent with mild colitis. No pneumoperitoneum or abscess. 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 No signs of leakage. 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 There is a 5.5 cm hiatal hernia located behind the heart. Allergies Allergy/AdvReac Type Severity Reaction Status Date / Time morphine Allergy Unknown RASH Verified 01/16/25 11:32 terazosin Allergy Verified 01/16/25 11:32 Home Medications Medication Instructions Recorded Confirmed Type denosumab 60 mg/mL subcutaneous 60 mg subcut .EVERY 6 MONTHS 04/11/19 03/30/25 History syringe (Prolia) fluorometholone 0.1 % eye 1 drp OPB [id number] 04/11/19 03/30/25 History drops,suspension ondansetron 4 mg disintegrating 4 mg translingual DAILY PRN Nausea 11/25/22 03/30/25 History tablet paroxetine HCl 10 mg tablet 10 mg PO DAILY 11/25/22 03/30/25 History omeprazole 40 mg capsule,delayed 40 mg PO DAILY 06/09/24 03/30/25 History release aspirin 81 mg tablet,delayed 81 mg PO DAILY #30 tabs 06/10/24 03/30/25 Rx release (Adult Low Dose Aspirin) atorvastatin 40 mg tablet 40 mg PO HS 08/15/24 03/30/25 History cyanocobalamin (vitamin B-12) 2,000 mcg PO DAILY 02/23/25 03/30/25 History 1,000 mcg tablet acetaminophen 500 mg tablet 1,000 mg PO BID 03/30/25 03/30/25 History amlodipine 10 mg tablet 10 mg PO DAILY 03/30/25 03/30/25 History lisinopril 10 mg tablet 10 mg PO DAILY 03/30/25 03/30/25 History metoprolol succinate 25 mg 25 mg PO HS 03/30/25 03/30/25 History tablet,extended release 24 hr Patient History Medical History Fracture of right ulna Closed pelvic ring fracture Cancer L BREAST, DOUBLE MASTECTOMY - CHEMO (2016) Abnormal urinalysis CKD stage 3b, GFR 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 Drug reaction GERALD (acute kidney injury) Hypertension Limb alert care status LUE Osteoporosis Surgical History Hx of cornea transplant BL Hx of mastectomy BILATERAL Hx of colonoscopy History of left knee replacement H/O cataract removal with insertion of prosthetic lens bilateral Family History Other Family history of diabetes mellitus Denies family history of Ovarian cancer Breast cancer Colorectal cancer Social History Smoking Status: Never smoker Second Hand Exposure: No; Do You Dip or Chew Tobacco: No; Hx Alcohol Use: No Hx Substance Use: No Preferred Language: Peruvian Communication Ability: Effective Visual Impairment: No Limitations Diagnostic Radiologic Technologist Required: No Beliefs That Will Affect Care: None Current Living Situation: Spouse Other Information That Helps Us Care for You: No Feels Safe at Home: Yes Safety Concerns: Feels Safe At This Time Assistive Devices: None Review of Systems Review of Systems: All other findings negative except as noted in HPI. Physical Exam Constitutional: WD/WN, vitals as above Respiratory: normal respiratory effort, lungs clear to auscultation Cardiovascular: Rate/Rhythm: regular rate Gastrointestinal (Abdomen): normal bowel sounds, soft, nontender, no hepatosplenomegaly Skin: no rashes, warm and dry Results & Data Vital Signs (Past 12 Hours) Vital Signs Temp Pulse Pulse Resp BP BP Pulse Ox 03/31/25 08:22 98.1 F 67 18 168/64 H 93 03/31/25 05:57 70 03/31/25 04:00 98.6 F 70 20 157/69 H 93 03/31/25 02:00 03/31/25 02:00 98.1 F 71 17 145/55 H 95 03/31/25 01:58 65 03/31/25 01:21 74 14 94 03/31/25 01:00 70 18 136/69 95 03/31/25 00:45 70 18 134/68 94 03/31/25 00:30 67 14 138/62 95 03/31/25 00:00 70 15 146/69 H 96 03/30/25 23:29 69 03/30/25 23:15 66 18 130/61 92 03/30/25 23:03 68 20 95 03/30/25 23:00 129/75 03/30/25 23:00 129/75 03/30/25 22:45 136/68 03/30/25 22:45 67 17 93 03/30/25 22:33 72 24 94 03/30/25 22:30 119/62 03/30/25 22:30 119/62 03/30/25 22:30 119/62 03/30/25 22:24 66 19 93 03/30/25 22:18 65 17 94 03/30/25 22:15 135/61 03/30/25 22:15 135/61 03/30/25 21:51 67 21 03/30/25 21:48 67 17 03/30/25 21:45 113/63 03/30/25 21:45 113/63 O2 Del Method 03/31/25 08:22 Room Air 03/31/25 05:57 03/31/25 04:00 Room Air 03/31/25 02:00 Room Air 03/31/25 02:00 Room Air 03/31/25 01:58 03/31/25 01:21 03/31/25 01:00 Room Air 03/31/25 00:45 Room Air 03/31/25 00:30 Room Air 03/31/25 00:00 Room Air 03/30/25 23:29 03/30/25 23:15 Room Air 03/30/25 23:03 03/30/25 23:00 03/30/25 23:00 03/30/25 22:45 03/30/25 22:45 03/30/25 22:33 03/30/25 22:30 03/30/25 22:30 03/30/25 22:30 03/30/25 22:24 03/30/25 22:18 03/30/25 22:15 03/30/25 22:15 03/30/25 21:51 03/30/25 21:48 03/30/25 21:45 03/30/25 21:45 Laboratory Results 03/31/25 03/31/25 03/31/25 Range/Units 09:05 08:43 07:49 WBC 9.79 Cancelled (4.8-10.8) K/ul RBC 3.23 L Cancelled (4.20-5.40) M/uL Hgb 10.0 L Cancelled (12.0-16.0) g/dl Hct 29.9 L Cancelled (37.0-47.0) % MCV 92.6 Cancelled (80.0-100.0) fL MCH 31.0 Cancelled (25.0-34.0) pg MCHC 33.4 Cancelled (32.0-36.0) g/dL RDW Std Deviation 51.1 H Cancelled (36.4-46.3) fL RDW Coeff of Manfred 14.9 H Cancelled (11.5-14.5) % Plt Count 204 Cancelled (130-400) K/uL MPV 9.6 Cancelled (9.4-12.4) fL Absolute Nucleated RBC Cancelled Nucleated RBC % (auto) Cancelled Neutrophils % (Manual) % Lymphocytes % (Manual) % Reactive Lymphs % (Man) % Monocytes % (Manual) % Eosinophils % (Manual) % Neutrophils # (Manual) (1.40-6.50) K/uL Total Absolute Neuts (1.4-6.5) K/uL Lymphocytes # (Manual) (1.2-3.4) K/uL Reactive Lymphs # K/uL Total Abs Lymphocytes (1.2-3.4) K/uL Monocytes # (Manual) (0.11-0.59) K/uL Eosinophils # (Manual) (0-0.50) K/uL Blood Smear Review Platelet Estimate Cancelled PT (9.0-12.0) Seconds INR (0.9-1.1) APTT (21-31) Seconds PTT Ratio Sodium 135 L (136-145) mmol/L Potassium 4.6 (3.5-5.1) mmol/L Chloride 107 (98-107) mmol/L Carbon Dioxide 22 (21-32) mmol/L Anion Gap 6 (3-11) BUN 18 (6-23) mg/dl Creatinine 1.35 H D (0.6-1.2) mg/dl Est Cr Clr Drug Dosing 21.3 ml/min eGFR 37.57 BUN/Creatinine Ratio 13.3 (10-20) Glucose 91 (70-99(Fasting)) mg/dl Calcium 7.9 L (8.6-10.3) mg/dl Magnesium (1.7-2.4) mg/dl Total Bilirubin (0.2-1.0) mg/dl AST (13-39) U/L ALT (7-52) U/L Alkaline Phosphatase (34-104) U/L Troponin I High Sens (0-14) pg/ml Total Protein (6.0-8.3) gm/dl Albumin (3.4-5.0) gm/dl Globulin (2.5-4.0) gm/dl Albumin/Globulin Ratio (0.9-2) TSH (0.300-4.500) uIu/ml Free T4 (0.61-1.60) ng/dl Urine Color Urine Appearance (Clear) Urine pH (4.5-7.5) Ur Specific [place] (1.000-1.030) Urine Protein (Negative) Urine Glucose (UA) (Negative) Urine Ketones (Negative) Urine Blood (Negative) Urine Nitrite (Negative) Urine Bilirubin (Negative) Urine Urobilinogen (Negative) Ur Leukocyte Esterase (Negative) Urine Comment Blood Type Antibody Screen 03/31/25 03/30/25 03/30/25 Range/Units 02:49 23:03 21:10 WBC (4.8-10.8) K/ul RBC (4.20-5.40) M/uL Hgb 10.0 L (12.0-16.0) g/dl Hct 30.2 L (37.0-47.0) % MCV (80.0-100.0) fL MCH (25.0-34.0) pg MCHC (32.0-36.0) g/dL RDW Std Deviation (36.4-46.3) fL RDW Coeff of Manfred (11.5-14.5) % Plt Count (130-400) K/uL MPV (9.4-12.4) fL Absolute Nucleated RBC Nucleated RBC % (auto) Neutrophils % (Manual) % Lymphocytes % (Manual) % Reactive Lymphs % (Man) % Monocytes % (Manual) % Eosinophils % (Manual) % Neutrophils # (Manual) (1.40-6.50) K/uL Total Absolute Neuts (1.4-6.5) K/uL Lymphocytes # (Manual) (1.2-3.4) K/uL Reactive Lymphs # K/uL Total Abs Lymphocytes (1.2-3.4) K/uL Monocytes # (Manual) (0.11-0.59) K/uL Eosinophils # (Manual) (0-0.50) K/uL Blood Smear Review Platelet Estimate PT (9.0-12.0) Seconds INR (0.9-1.1) APTT (21-31) Seconds PTT Ratio Sodium (136-145) mmol/L Potassium (3.5-5.1) mmol/L Chloride (98-107) mmol/L Carbon Dioxide (21-32) mmol/L Anion Gap (3-11) BUN (6-23) mg/dl Creatinine (0.6-1.2) mg/dl Est Cr Clr Drug Dosing ml/min eGFR BUN/Creatinine Ratio (10-20) Glucose (70-99(Fasting)) mg/dl Calcium (8.6-10.3) mg/dl Magnesium (1.7-2.4) mg/dl Total Bilirubin (0.2-1.0) mg/dl AST (13-39) U/L ALT (7-52) U/L Alkaline Phosphatase (34-104) U/L Troponin I High Sens (0-14) pg/ml Total Protein (6.0-8.3) gm/dl Albumin (3.4-5.0) gm/dl Globulin (2.5-4.0) gm/dl Albumin/Globulin Ratio (0.9-2) TSH (0.300-4.500) uIu/ml Free T4 (0.61-1.60) ng/dl Urine Color Yellow Urine Appearance Clear (Clear) Urine pH 6.5 (4.5-7.5) Ur Specific [place] 1.013 (1.000-1.030) Urine Protein Negative (Negative) Urine Glucose (UA) Negative (Negative) Urine Ketones Negative (Negative) Urine Blood Negative (Negative) Urine Nitrite Negative (Negative) Urine Bilirubin Negative (Negative) Urine Urobilinogen Negative (Negative) Ur Leukocyte Esterase Negative (Negative) Urine Comment Blood Type O Negative Antibody Screen NEGATIVE 03/30/25 Range/Units 19:26 WBC 4.77 L (4.8-10.8) K/ul RBC 3.86 L (4.20-5.40) M/uL Hgb 11.7 L (12.0-16.0) g/dl Hct 36.2 L (37.0-47.0) % MCV 93.8 (80.0-100.0) fL MCH 30.3 (25.0-34.0) pg MCHC 32.3 (32.0-36.0) g/dL RDW Std Deviation 51.6 H (36.4-46.3) fL RDW Coeff of Manfred 14.8 H (11.5-14.5) % Plt Count 261 (130-400) K/uL MPV 9.5 (9.4-12.4) fL Absolute Nucleated RBC Nucleated RBC % (auto) Neutrophils % (Manual) 48 % Lymphocytes % (Manual) 16 % Reactive Lymphs % (Man) 30 % Monocytes % (Manual) 3 % Eosinophils % (Manual) 3 % Neutrophils # (Manual) 2.29 (1.40-6.50) K/uL Total Absolute Neuts 2.29 (1.4-6.5) K/uL Lymphocytes # (Manual) 0.76 L (1.2-3.4) K/uL Reactive Lymphs # 1.43 K/uL Total Abs Lymphocytes 2.19 (1.2-3.4) K/uL Monocytes # (Manual) 0.14 (0.11-0.59) K/uL Eosinophils # (Manual) 0.14 (0-0.50) K/uL Blood Smear Review Platelet Estimate PT 10.3 (9.0-12.0) Seconds INR 0.9 (0.9-1.1) APTT 22 (21-31) Seconds PTT Ratio 0.8 Sodium 134 L (136-145) mmol/L Potassium 4.1 (3.5-5.1) mmol/L Chloride 103 (98-107) mmol/L Carbon Dioxide 22 (21-32) mmol/L Anion Gap 9 (3-11) BUN 21 (6-23) mg/dl Creatinine 1.66 H (0.6-1.2) mg/dl Est Cr Clr Drug Dosing 17.3 ml/min eGFR 29.31 BUN/Creatinine Ratio 12.7 (10-20) Glucose 131 H (70-99(Fasting)) mg/dl Calcium 9.3 (8.6-10.3) mg/dl Magnesium 2.2 (1.7-2.4) mg/dl Total Bilirubin 0.4 (0.2-1.0) mg/dl AST 14 (13-39) U/L ALT 8 (7-52) U/L Alkaline Phosphatase 142 H (34-104) U/L Troponin I High Sens 13.1 (0-14) pg/ml Total Protein 6.7 (6.0-8.3) gm/dl Albumin 4.1 (3.4-5.0) gm/dl Globulin 2.6 (2.5-4.0) gm/dl Albumin/Globulin Ratio 1.6 (0.9-2) TSH 8.251 H (0.300-4.500) uIu/ml Free T4 0.93 (0.61-1.60) ng/dl Urine Color Urine Appearance (Clear) Urine pH (4.5-7.5) Ur Specific [place] (1.000-1.030) Urine Protein (Negative) Urine Glucose (UA) (Negative) Urine Ketones (Negative) Urine Blood (Negative) Urine Nitrite (Negative) Urine Bilirubin (Negative) Urine Urobilinogen (Negative) Ur Leukocyte Esterase (Negative) Urine Comment Blood Type Antibody Screen PG Care Time/CCT Total # of Minutes Spent Total Time Spent with Patient: Total time spent is greater than 50% in coordination of care (as documented) at patient's floor/unit and/or counseling patient: Coding Level of Care Code 90519 INT INP/OBS CARE 2/55MIN Diagnoses Melena K92.1
--- NOTE | 2025-03-31 11:37 | Anesthesiology Consultation ---
Date of Service March 31, 2025 Assessment & Plan Chart Review Chart Review: Acceptable Risk for Surgery and Patient NOT seen in Pre Admission Testing Consults Requested none ASA ASA4 Proposed Anesthesia Anesthesia Type: MAC History Surgery Operation Date: 03/31/25 16:30 Proposed Procedures p Esophagogastroduodenoscopy Dr. Sebastian Cortes MD Height/Weight Height: 5 ft 1 in Weight: 52.8 kg Allergies Allergy/AdvReac Type Severity Reaction Status Date / Time morphine Allergy Unknown RASH Verified 01/16/25 11:32 terazosin Allergy Verified 01/16/25 11:32 Medications Home Medications Medication Instructions Recorded Confirmed Last Taken denosumab 60 mg/mL subcutaneous 60 mg subcut .EVERY 6 MONTHS 04/11/19 03/30/25 18 Months Ago syringe (Prolia) ~12/10/22 fluorometholone 0.1 % eye 1 drp OPB 3XWK 04/11/19 03/30/25 03/29/25 drops,suspension ondansetron 4 mg disintegrating 4 mg translingual DAILY PRN Nausea 11/25/22 03/30/25 03/30/25 tablet paroxetine HCl 10 mg tablet 10 mg PO DAILY 11/25/22 03/30/25 03/30/25 omeprazole 40 mg capsule,delayed 40 mg PO DAILY 06/09/24 03/30/25 03/30/25 release aspirin 81 mg tablet,delayed 81 mg PO DAILY #30 tabs 06/10/24 03/30/25 03/30/25 release (Adult Low Dose Aspirin) atorvastatin 40 mg tablet 40 mg PO HS 08/15/24 03/30/25 03/29/25 cyanocobalamin (vitamin B-12) 2,000 mcg PO DAILY 02/23/25 03/30/25 03/30/25 1,000 mcg tablet acetaminophen 500 mg tablet 1,000 mg PO BID 03/30/25 03/30/25 03/30/25 amlodipine 10 mg tablet 10 mg PO DAILY 03/30/25 03/30/25 03/30/25 lisinopril 10 mg tablet 10 mg PO DAILY 03/30/25 03/30/25 03/30/25 metoprolol succinate 25 mg 25 mg PO HS 03/30/25 03/30/25 03/29/25 tablet,extended release 24 hr Active Medications Generic Name Dose Route Start Last Admin Trade Name Freq PRN Reason Stop Dose Admin Acetaminophen 1,000 mg 03/31/25 09:00 03/31/25 09:16 Acetaminophen 500 Mg Tab PO 04/30/25 08:59 1,000 mg BID YO Administration Pantoprazole Sodium 40 mg in 10 mls @ 5 mls/min 03/31/25 09:00 03/31/25 09:16 Protonix IV 04/30/25 08:59 5 mls/min BID YO Administration Miscellaneous 1 each 03/31/25 08:00 03/31/25 09:12 Fluorometholone 0.1 % Drops,Suspension)~Order Awaiting Action N/A 04/30/25 07:59 Not Given QS YO Paroxetine HCl 10 mg 03/31/25 09:00 03/31/25 09:17 Paroxetine Hcl 10 Mg Tab PO 04/30/25 08:59 10 mg DAILY YO Administration Past Medical History Medical History Fracture of right ulna Closed pelvic ring fracture Cancer L BREAST, DOUBLE MASTECTOMY - CHEMO (2015) Abnormal urinalysis CKD stage 3b, GFR 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 Drug reaction GERALD (acute kidney injury) Hypertension Limb alert care status LUE Osteoporosis ASCVD Aorta H/H HLD Gerd 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 Anemia Exercise / Class Metabolic Activity III < 4 Walking/Shop/Light housework Past Family History Family History Other Family history of diabetes mellitus Denies family history of Ovarian cancer Breast cancer Colorectal cancer Past Surgical History Surgical History Hx of cornea transplant BL Hx of mastectomy BILATERAL Hx of colonoscopy History of left knee replacement H/O cataract removal with insertion of prosthetic lens bilateral Past Anesthesia History No Hx of Anesthesia Complications and No Family Hx of Anesthesia Complications History of PONV No Hx of PONV and No Hx of Motion Sickness Social History Smoking Status: Never smoker Do You Dip or Chew Tobacco: No Hx Alcohol Use: No Hx Substance Use: No substance use type: does not use Physical Exam Vital Signs Last Vital Signs Temp 36.7 C 06/16/25 08:22 Pulse 67 03/31/25 08:22 Resp 18 03/31/25 08:22 BP 168/64 H 03/31/25 08:22 Pulse Ox 93 03/31/25 08:22 O2 Del Method Room Air 03/31/25 10:50 Testing Laboratory Results 03/31/25 09:05 03/31/25 07:49 PT 10.3 Seconds (9.0-12.0) 03/30/25 19:26 INR 0.9 (0.9-1.1) 03/30/25 19:26 APTT 22 Seconds (21-31) 03/30/25 19:26 Urine Color Yellow 03/30/25 23:03 Urine Appearance Clear (Clear) 03/30/25 23:03 Urine pH 6.5 (4.5-7.5) 03/30/25 23:03 Ur Specific [place] 1.013 (1.000-1.030) 03/30/25 23:03 Urine Protein Negative (Negative) 03/30/25 23:03 Urine Glucose (UA) Negative (Negative) 03/30/25 23:03 Urine Ketones Negative (Negative) 03/30/25 23:03 Urine Nitrite Negative (Negative) 03/30/25 23:03 Ur Leukocyte Esterase Negative (Negative) 03/30/25 23:03 Blood Type O Negative 03/30/25 21:10 Antibody Screen NEGATIVE 03/30/25 21:10 Electrocardiogram Date: 03/30/25 Findings: + NSR @ (@ 66 w/ occas. PVC's;NS ST & T wave abnl) Chest X-Ray Date: 03/30/25 Findings: + NAD, + atherosclerosis of thoracic aorta and + other (mild emphysema;6.5 cm hiatal hernia) Echocardiogram Date: 06/10/24 EF: > 70% hyperdynamic LV Function: normal RWMA: + none Other Findings: + atrial enlargement (moderate LA dilation), + LVH (moderate) and + diastolic dysfunction (Grade 1) severe MAC
[2025-03-31 13:16] LABS: Large Granular Lymph # (manua 1.62 K/uL; Large Granular Lymph % (manual) 34 %
[2025-03-31 13:17] LABS: ALC (manual) 2.29 K/uL (1.2-3.4); ANC (manual) 2.15 K/uL (1.4-6.5); Lymphocytes % (manual) 14 %
[2025-03-31 13:18] LABS: Eosinophils % (manual) 6 %; Monocytes % (manual) 1 %; Neutrophils # (manual) 2.15 K/uL (1.40-6.50)
[2025-03-31 13:19] LABS: Lymphocytes # (manual) 0.67 K/uL (1.2-3.4); Monocytes # (manual) 0.05 K/uL (0.11-0.59)
[2025-03-31 13:20] LABS: Eosinophils # (manual) 0.29 K/uL (0-0.50)
[2025-03-31 13:30] LABS: White Blood Count 4.77 K/ul (4.8-10.8)
--- NOTE | 2025-03-31 13:44 | Anesthesiology Progress Note ---
Date of Service March 31, 2025 Anesthesia Post Procedure Vital Signs Vital Signs: Temp Pulse Pulse Pulse Resp BP BP 03/31/25 13:30 74 16 03/31/25 11:42 36.7 C 70 18 03/31/25 10:50 03/31/25 08:22 36.7 C 67 18 03/31/25 05:57 70 03/31/25 04:00 37.0 C 70 20 03/31/25 02:00 03/31/25 02:00 36.7 C 71 17 03/31/25 01:58 65 03/31/25 01:21 74 14 03/31/25 01:00 70 18 136/69 03/31/25 00:45 70 18 134/68 03/31/25 00:30 67 14 138/62 03/31/25 00:00 70 15 146/69 H 03/30/25 23:29 69 03/30/25 23:15 66 18 130/61 03/30/25 23:03 68 20 03/30/25 23:00 129/75 03/30/25 23:00 129/75 03/30/25 22:45 136/68 03/30/25 22:45 67 17 03/30/25 22:33 72 24 03/30/25 22:30 119/62 03/30/25 22:30 119/62 03/30/25 22:30 119/62 03/30/25 22:24 66 19 03/30/25 22:18 65 17 03/30/25 22:15 135/61 03/30/25 22:15 135/61 03/30/25 21:51 67 21 03/30/25 21:48 67 17 03/30/25 21:45 113/63 03/30/25 21:45 113/63 03/30/25 21:00 69 19 03/30/25 20:57 64 18 03/30/25 20:46 104/50 L 03/30/25 20:27 64 15 03/30/25 20:15 66 13 03/30/25 20:15 138/100 03/30/25 20:12 65 15 03/30/25 20:00 63 24 151/77 H 03/30/25 20:00 151/77 H 03/30/25 19:34 71 20 03/30/25 19:34 73 20 124/74 03/30/25 19:22 36.3 C L 78 18 101/50 L 03/30/25 19:22 72 BP Pulse Ox O2 Del Method O2 Flow Rate 03/31/25 13:30 98/62 L 94 Oxymask 5 03/31/25 11:42 149/63 H 93 Room Air 03/31/25 10:50 Room Air 03/31/25 08:22 168/64 H 93 Room Air 03/31/25 05:57 03/31/25 04:00 157/69 H 93 Room Air 03/31/25 02:00 Room Air 03/31/25 02:00 145/55 H 95 Room Air 03/31/25 01:58 03/31/25 01:21 94 03/31/25 01:00 95 Room Air 03/31/25 00:45 94 Room Air 03/31/25 00:30 95 Room Air 03/31/25 00:00 96 Room Air 03/30/25 23:29 03/30/25 23:15 92 Room Air 03/30/25 23:03 95 03/30/25 23:00 03/30/25 23:00 03/30/25 22:45 03/30/25 22:45 93 03/30/25 22:33 94 03/30/25 22:30 03/30/25 22:30 03/30/25 22:30 03/30/25 22:24 93 03/30/25 22:18 94 03/30/25 22:15 03/30/25 22:15 03/30/25 21:51 03/30/25 21:48 03/30/25 21:45 03/30/25 21:45 03/30/25 21:00 03/30/25 20:57 95 03/30/25 20:46 03/30/25 20:27 03/30/25 20:15 94 03/30/25 20:15 03/30/25 20:12 03/30/25 20:00 03/30/25 20:00 03/30/25 19:34 95 Room Air 03/30/25 19:34 98 Room Air 03/30/25 19:22 97 Room Air 03/30/25 19:22 Pain Intensity Abdomen: Pain Intensity: 6 Transfer of Care Handoff Completed per policy Notes Mental Status: alert / awake / arousable Patient Amnestic to Procedure: Yes Nausea / Vomiting: adequately controlled Pain: adequately controlled Airway Patency, RR, SpO2: stable & adequate BP & HR: stable & adequate Hydration State: stable & adequate Anesthetic Complications: no major complications apparent
--- NOTE | 2025-03-31 13:51 | GI REPORT ---
[facility] Patient: ROSALVA ELLSWORTH : 1935 Sex at : Female Age: 89 Years Procedure: Upper GI endoscopy Date: 03/31/2025 Attending Physician: Ilir Cortes MD Referring MD: Rossana Gutierrez Md Indications: - Coffee-ground emesis Medications: - Monitored Anesthesia Care Complications: - No immediate complications. Estimated Blood Loss: - Estimated blood loss: None. Procedure: - The egd scope was introduced through the mouth and advanced to the second part of the duodenum. - The upper GI endoscopy was accomplished without difficulty. - The patient tolerated the procedure well. Findings: - One benign-appearing, intrinsic mild stenosis was found at the gastroesophageal junction. The stenosis was traversed. A TTS dilator was passed through the scope. Dilation with an 18-19-20 mm balloon (to a maximum balloon size of 20 mm) dilator was performed 20 mm. The dilation site was examined and showed no change. - A large hiatal hernia was present. - A few erosions with no bleeding and no stigmata of recent bleeding were found in the cardia (on retroflexion). - The examined duodenum was normal. Impression: - Benign-appearing esophageal stenosis. Dilated with an 18-19-20 mm balloon (to a maximum balloon size of 20 mm). - Large hiatal hernia. - Erosive gastropathy with no bleeding and no stigmata of recent bleeding. - Normal examined duodenum. - No specimens collected. - Moderate to large hiatal hernia. This could be the source for her emesis. She has Marques type erosions traumatic erosions related to irritation at the gopi of the diaphragm. These can be the source for coffee-ground emesis. Patient also had a bout of diarrhea and nausea vomiting and diarrhea could be a enteritis. At present as her counts are reasonably stable today's test is normal this was a relatively acute onset symptoms I am inclined to take a watch and see attitude. Lets advance her diet. Will have her follow-up in outpatient GI office to make sure symptoms completely resolved. If you have persistent recurrent symptoms could consider colon evaluation. For heme positive stool. We discharged her on a single oral dose of PPI 20 mg/day indefinitely for hiatal hernia and esophageal stricture Recommendation: Procedure Code(s): - 46849, Esophagogastroduodenoscopy, flexible, transoral; with transendoscopic balloon dilation of esophagus (less than 30 mm diameter) Diagnosis Code(s): - K22.2, Esophageal obstruction - K44.9, Diaphragmatic hernia without obstruction or gangrene - K31.89, Other diseases of stomach and duodenum CPT(R) - 2022 copyright [employer]. All Rights Reserved. The CPT codes, CCI edits and ICD codes generated are intended as suggestions and were generated based on input data. These codes are preliminary and upon material specialist review may be revised to meet current compliance and payer requirements. The provider is responsible for the final determination of appropriate codes, and modifiers. Ilir Cortes MD This document has been electronically signed. Note Initiated:03/31/2025 Note Completed:03/31/2025 1:50 PM \\[email or web address]\Central\InterfaceData\Data\Provation\Results\LIVE\[id number]
[2025-03-31] MEDS: LIDOCAINE 2% 2 ML VIAL/AMP(20MG/ML) INFIL ONE (14:19)
[2025-03-31] MEDS: PROPOFOL IV EMULSION 10 MG/ML 20 ML VIAL IV ONE (14:19)
--- NOTE | 2025-03-31 16:51 | Hospitalist Progress Note ---
Date of Service March 31, 2025 Assessment & Plan (1) Hiatal hernia: (2) Right iliac artery stenosis: (3) Melena: (4) GI bleed: (5) Vomiting: Plan 89 year old female presents to the ER with nausea and vomiting. Stool noted to be black in the ER and heme positive with possible coffee ground vomiting. Weight loss 10lb in last month. 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 #Acute GI bleed/ melena / hiatal hernia / weight loss No known liver cirrhosis or NSAID use Consult gastroenterology - status post EGD 03/31 showing benign-appearing esophageal stenosis, large hiatal hernia, erosive gastropathy with no bleeding or recent stigmata of bleeding. Suspect that large hiatal hernia could be source of her emesis. Diarrhea could be enteritis. Send counts are stable we will take a watch and wait Approach. Recommend outpatient GI follow-up and colonoscopy. Continue PPI 20 mg a day indefinitely. #Hypertension Lisinopril and amlodipine held, will continue to held given her current blood pressures. 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 asymptomatic, follow up as outpatient VTE Prophylaxis - SCDs Disposition - continued inpatient stay, advancing diet and trending hemoglobin Admission and Anticipated Discharge Date Admission Date: March 30, 2025 Subjective patient seen prior to EGD having some upper abd pain that started yesterday no vomting today Review of Systems Review of Systems: All systems reviewed & are unremarkable except as noted in Subjective Physical Exam Physical Exam: General: NAD, VS as above Resp: normal respiratory effort, lungs clear to auscultation CV: RRR, no murmur, Abd: normal bowel sounds, mild epigastric pain Extremities: Moves all extremities, no edema Neuro: A&O x3, Skin: intact, no lesions noted Results & Data Results & Data Vital Signs (Past 12 Hours) Vital Signs Temp Pulse Pulse Pulse Resp BP Pulse Ox 03/31/25 15:16 98.2 F 78 16 114/77 90 03/31/25 14:50 67 03/31/25 14:00 71 16 151/69 H 96 03/31/25 13:45 73 16 123/58 L 96 03/31/25 13:30 74 16 98/62 L 94 03/31/25 11:42 98.1 F 70 18 149/63 H 93 03/31/25 10:50 03/31/25 08:22 98.1 F 67 18 168/64 H 93 03/31/25 05:57 70 O2 Del Method O2 Flow Rate 03/31/25 15:16 Room Air 03/31/25 14:50 03/31/25 14:00 Room Air 03/31/25 13:45 Room Air 03/31/25 13:30 Oxymask 5 03/31/25 11:42 Room Air 03/31/25 10:50 Room Air 03/31/25 08:22 Room Air 03/31/25 05:57 Laboratory Results cbc and chemistry reviewed Diagnostic Findings EGD reviewed PG Care Time/CCT Total # of Minutes Spent Total Time Spent with Patient: Total time spent is greater than 50% in coordination of care (as documented) at patient's floor/unit and/or counseling patient: Coding Level of Care Code 71246 SUB INP/OBS CARE 3/50MIN Diagnoses Hiatal hernia K44.9 Right iliac artery stenosis I77.1 Melena K92.1 GI bleed K92.1 GI bleed type/associated pathology: melena Vomiting R11.2 Nausea presence: with nausea Vomiting type: unspecified (4) GI bleed GI bleed type/associated pathology: melena Qualified Code(s): K92.1 - Melena (5) Vomiting Nausea presence: with nausea Vomiting type: unspecified Qualified Code(s): R11.2 - Nausea with vomiting, unspecified
[2025-03-31] MEDS: ATORVASTATIN 40 MG TAB PO SCH (20:00)
[2025-03-31] MEDS: METOPROLOL SUCC 25MG EXT REL TAB PO SCH (20:00)
[2025-04-01] MEDS ORDERED: MELATONIN 3 MG TAB PO PRN (00:20)
[2025-04-01 07:47] VITALS: RESP 17
[2025-04-01] MEDS: PANTOprazole 40 MG TAB PO SCH (09:00)
[2025-04-01] MEDS: amLODIPine BESYLATE 5 MG TAB PO SCH (09:05)
[2025-04-01 09:15] LABS: Hematocrit (blood only) 34.1 % (37.0-47.0); Hemoglobin 10.7 g/dl (12.0-16.0); Mean Corpuscular Hemoglobin 30.1 pg (25.0-34.0); Mean Corpuscular Hgb Conc 31.4 g/dL (32.0-36.0); Mean Corpuscular Volume 95.8 fL (80.0-100.0); Mean Platelet Volume 9.6 fL (9.4-12.4); Platelet Count 215 K/uL (130-400); RDW Coefficient of Variation 15.2 % (11.5-14.5); RDW Standard Deviation 53.9 fL (36.4-46.3); Red Blood Count 3.56 M/uL (4.20-5.40); White Blood Count 7.93 K/ul (4.8-10.8)
[2025-04-01 09:31] LABS: BUN Creatinine Ratio 12.6 (10-20); Calcium 8.4 mg/dl (8.6-10.3); Creatinine Clr Calc Pharmacy 25.9 ml/min; Potassium 4.5 mmol/L (3.5-5.1)
--- NOTE | 2025-04-01 10:17 | Discharge Summary ---
Discharge Summary Date of Service April 01, 2025 Principal Dx & Hospital Course #1 = Principal Diagnosis (1) Hiatal hernia: (2) Right iliac artery stenosis: (3) Melena: (4) GI bleed: (5) Vomiting: Plan #Acute GI bleed/ melena / hiatal hernia / weight loss 89 year old female presents to the ER with nausea and vomiting. Stool noted to be black in the ER and heme positive with possible coffee ground vomiting. Weigh t loss 10lb in last month. 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 GI was consulted, s/p EGD 03/31 showing benign- appearing esophageal stenosis, large hiatal hernia, erosive gastropathy with no bleeding or recent stigmata of bleeding. Suspect that large hiatal hernia could be source of her emesis. Diarrhea could be enteritis. Recommend outpatient GI follow-up and colonoscopy. Continue PPI 20 mg a day indefinitely. Hgb improving from day prior, abd pain has improved. Stable for d/c home, discussed life long PPI (will continue on Omeprazole) and small frequent meals. 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 asymptomatic, follow up as outpatient Dipso: discharge to home today with GI follow up Notes For Next Care Provider f/u on CT findings - stenosis of right common iliac, aneursymal dilation of infrarenal abdominal aorta Admission HPI Per Admitting Provider Alem Goldsmith is an 89 year old female who presents to the ER with generalized illness, nausea and vomiting. She reports her symptoms started around 6pm with nausea and vomiting with associated lightheadedness. She reports reduced bowel movements but with tenesmus, smaller harder bowel movements. No hematemesis, melena or hematochezia. No prior GI bleed, no NSAID use or recently change in medications. She takes aspirin daily for primary prophylaxis. She notes unintentional weight loss 10 lb in last month. Eating and drinking ok but her appetite has been worse. She takes omeprazole daily but is unsure why she is on this. She denies any knowledge of her hiatal hernia, reflux or acid taste in her mouth. While in the ER she had black stool which was heme positive. She also had some vomiting which was concerning for coffee-ground emesis. Discharge Exam General: NAD, VS as above Resp: normal respiratory effort, lungs clear to auscultation CV: RRR, no murmur, Abd: normal bowel sounds, nontender abdomen Extremities: Moves all extremities, cast on right arm Neuro: A&O x3, Discharge Plan Discharge Items Patient Disposition: Home - Self-Care Reason For Visit: ACUTE GI BLEED Discharge Diagnosis: Hiatal Hernia Condition on Discharge: Good Activity: Resume your previous activity Bathing: No limitations Driving/Machine Use: No limitations Weightbearing: Full weightbearing Non-emergency contact: Primary Care Provider and Sexual Health Physician Call non-emergency contact if: you have any medication questions, your symptoms worsen, your pain is worsening and your temperature is above 101 Follow-up/Referrals: Kailee Longoria MD [Primary Care Provider] - (PLEASE CALL YOUR PRIMARY CARE PROVIDER TO SCHEDULE A HOSPITAL FOLLOW-UP APPOINTMENT WITHIN 7-10 DAYS) Laura Rod CRNP [Nurse Practitioner] - 04/17/25 12:30 pm () Diet: Regular Addtl Attending Provider Instructions: Alem, You were hospitalized after a concern for a GI bleed. You were seen by the GI team and had and EGD (upper scope) which showed a narrow esophagus which was dilated and a large hiatal hernia. This is basically a pouching of your stomach that can get caught above the esophagus. There was no evidence of bleeding during the scope and it was thought that your nausea and vomiting could be caused from that. Thankfully, your hemoglobin (main blood count) has remained stable and seems less likely you have a GI bleed. There were concerns for blood in your stool, and for that reason you have been referred to outpatient GI. Their number is above and they should be contacting you this week. You should continue on smaller frequent meals. Continue omeprazole daily. Activity: You can do normal everyday activities as your body allows. Take rest breaks if you feel tired. Do not overexert. Stop activity if you have pain, shortness of breath or feel dizzy. Follow-up appointments: Make an appointment with your primary care physician within one week of discharge. A copy of this summary will be sent to them. Every time you see your primary care physician, or any other doctor, bring your medication list, and a list of questions. CONTACT YOUR PRIMARY CARE PROVIDER if you experience any of the following: Shortness of breath or difficulty breathing Fevers or chills Feeling tired with normal activity or experiencing dizziness or fainting Difficulty following your treatment plan, or difficulty taking medications CALL 911 OR GO TO THE EMERGENCY DEPARTMENT if you experience any of the following: Severe abdominal pain or nausea/vomiting Severe chest pain, or chest pain that radiates (moves) to your jaw or arm Sudden, severe shortness of breath or difficulty breathing Thank you for allowing us to participate in your care. Pending Studies at Discharge: No Stand-Alone Forms: My [facility] [email or web address], Smoking Cessation Medications and DC Order Prescriptions: Continued fluorometholone 0.1 % Drops,Suspension 1 drp OPB [id number] Rx Instructions: mon/wed/fri Prolia 60 mg/mL Syringe 60 mg SUBCUT .EVERY 6 MONTHS Rx Instructions: UNABLE TO VERIFY paroxetine HCl 10 mg tablet 10 mg PO DAILY ondansetron 4 mg tablet,disintegrating 4 mg translingual DAILY PRN (Reason: Nausea) omeprazole 40 mg capsule,delayed release(DR/EC) 40 mg PO DAILY aspirin [Adult Low Dose Aspirin] 81 mg tablet,delayed release (DR/EC) 81 mg PO DAILY Qty: 30 0RF atorvastatin 40 mg tablet 40 mg PO HS cyanocobalamin (vitamin B-12) 1,000 mcg tablet 2,000 mcg PO DAILY metoprolol succinate 25 mg tablet extended release 24 hr 25 mg PO HS acetaminophen 500 mg Tablet 1,000 mg PO BID lisinopril 10 mg tablet 10 mg PO DAILY amlodipine 10 mg tablet 10 mg PO DAILY Discharge Orders: Discharge Order (Routine); Ordered 04/01/25 Ordered By: Sarika Tucker/Other Patient Handouts: ED Hiatal Hernia Admission Data Admit Date/Time: 03/30/25 23:45 Attending Provider: Rossana Gutierrez Admit Provider: Leon Fitzpatrick Primary Care Provider: Kailee Longoria Other Providers: Leon Fitzpatrick; Evangelina Villalobos Jr Other Interventions: Discharge Summary Assessment (RN) Last Done: 04/01/25 12:14 Hospital Stay Data Consultations 03/30/25 23:24 ED Decision to Admit Stat 03/31/25 04:19 Consult Gastroenterology Routine Procedures Performed Operation Date: 03/31/25 16:30 Actual Procedures p EGD Dilatation - Ilir Cortes MD Diagnostic Imagining Performed Abdomen/Pelvis CT 03/30/25 19:33 Exam(s): CT ABDOMEN + PELVIS With Contrast IV Amt: OPTIRAY 320 93ML EXAM: CT Abdomen and Pelvis With Intravenous Contrast CLINICAL HISTORY: Reason for exam: vom, abd pain, possible obstruction. TECHNIQUE: Axial computed tomography images of the abdomen and pelvis with intravenous contrast. CTDI is 8.99 mGy and DLP is 402.83 mGy-cm. Automated exposure control was utilized for the study. A dose lowering technique was utilized adhering to the principles of ALARA. CONTRAST: Patient received OPTIRAY 320 93ML of IV contrast COMPARISON: 02/23/2025 FINDINGS: Lung bases: Unremarkable. No mass. No consolidation. Mediastinum: There is a 5.5 cm hiatal hernia located behind the heart. ABDOMEN: Liver: Unremarkable. No mass. Gallbladder and bile ducts: Gallbladder is fully distended but nondilated measuring 4.7 cm short axis diameter. There is at least 1 gallstone measuring 1.4 cm. No surrounding inflammation is seen. Pancreas: Unremarkable. No mass. No ductal dilation. Spleen: Unremarkable. No splenomegaly. Adrenals: Unremarkable. No mass. Kidneys and ureters: Unremarkable. No solid mass. No hydronephrosis. Stomach and bowel: Diverticulosis of the lower left and sigmoid colon without evidence of acute diverticulitis. There is fluid within the right and transverse colon suggesting ileus or enteritis and mild wall thickening involving the mid left colon consistent with mild colitis. No pneumoperitoneum or abscess. No obstruction. PELVIS: Appendix: No findings to suggest acute appendicitis. Bladder: Unremarkable. No mass. Reproductive: Unremarkable as visualized. ABDOMEN and PELVIS: Intraperitoneal space: See above. Bones/joints: Healing right superior and inferior pubic rami fractures as well as right sacral fracture. 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 No dislocation. Soft tissues: Unremarkable. 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 No signs of leakage. 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 Lymph nodes: Unremarkable. No enlarged lymph nodes. IMPRESSION: 1. Diverticulosis of the lower left and sigmoid colon without evidence of acute diverticulitis. There is fluid within the right and transverse colon suggesting ileus or enteritis and mild wall thickening involving the mid left colon consistent with mild colitis. No pneumoperitoneum or abscess. 2. 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 No signs of leakage. 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 3. There is a 5.5 cm hiatal hernia located behind the heart. Electronically signed by: Michel Brumfield MD 03/30/25 23:14 PM Chest X-Ray 03/30/25 19:34 Exam(s): XR CXR 1 VIEW EXAM: XR Chest, 1 View CLINICAL HISTORY: Reason for exam: weakness. TECHNIQUE: Frontal view of the chest. COMPARISON: 02/23/2025 FINDINGS: Lungs: Mild emphysematous changes in the lungs. No acute infiltrate or consolidation is seen. Pleural space: Unremarkable. No pneumothorax. Heart: The cardiac silhouette is mildly enlarged, similar to previous. 6.5 cm hiatal hernia projecting behind the heart, unchanged. Mediastinum: Unremarkable. Normal mediastinal contour. Bones/joints: Mild degenerative changes in the right shoulder. No acute fracture. Upper abdomen: Unremarkable as visualized. No pneumoperitoneum under the diaphragm. IMPRESSION: 1. The cardiac silhouette is mildly enlarged, similar to previous. 2. 6.5 cm hiatal hernia projecting behind the heart, unchanged. 3. Mild emphysematous changes in the lungs. No acute infiltrate or consolidation is seen. Electronically signed by: Michel Brumfield MD 03/30/25 22:58 PM Pending Results Patient Have Any Pending Studies at Discharge: No Discharge Instructions Given to Patient (Per Discharging Provider) Alem, You were hospitalized after a concern for a GI bleed. You were seen by the GI team and had and EGD (upper scope) which showed a narrow esophagus which was dilated and a large hiatal hernia. This is basically a pouching of your stomach that can get caught above the esophagus. There was no evidence of bleeding during the scope and it was thought that your nausea and vomiting could be caused from that. Thankfully, your hemoglobin (main blood count) has remained stable and seems less likely you have a GI bleed. There were concerns for blood in your stool, and for that reason you have been referred to outpatient GI. Their number is above and they should be contacting you this week. You should continue on smaller frequent meals. Continue omeprazole daily. Activity: You can do normal everyday activities as your body allows. Take rest breaks if you feel tired. Do not overexert. Stop activity if you have pain, shortness of breath or feel dizzy. Follow-up appointments: Make an appointment with your primary care physician within one week of discharge. A copy of this summary will be sent to them. Every time you see your primary care physician, or any other doctor, bring your medication list, and a list of questions. CONTACT YOUR PRIMARY CARE PROVIDER if you experience any of the following: Shortness of breath or difficulty breathing Fevers or chills Feeling tired with normal activity or experiencing dizziness or fainting Difficulty following your treatment plan, or difficulty taking medications CALL 911 OR GO TO THE EMERGENCY DEPARTMENT if you experience any of the following: Severe abdominal pain or nausea/vomiting Severe chest pain, or chest pain that radiates (moves) to your jaw or arm Sudden, severe shortness of breath or difficulty breathing Thank you for allowing us to participate in your care. Total Time Total Time Spent Total Time Spent (In Minutes): Time spent day of discharge 36 minutes including direct patient care, medication reconciliation, documentation, review of labs and images, and coordination of care. Coding Level of Care Code 72494 INP/OBS DISCH >30 MIN Diagnoses Hiatal hernia K44.9 Right iliac artery stenosis I77.1 Melena K92.1 GI bleed K92.1 GI bleed type/associated pathology: melena Vomiting R11.2 Nausea presence: with nausea Vomiting type: unspecified
[2025-04-01 11:13] VITALS: TEMP 98.1
[2025-04-01 15:23] VITALS: BP 143/61; PULSE 62; O2SAT 96
--- NOTE | 2025-04-03 04:12 | Electrocardiogram Report ---
Test Reason : Blood Pressure : */* mmHG Vent. Rate : 66 BPM Atrial Rate : 66 BPM P-R Int : 168 ms QRS Dur : 82 ms QT Int : 424 ms P-R-T Axes : 57 1 2 degrees QTcB Int : 444 ms Sinus rhythm with occasional Premature ventricular complexes Nonspecific ST and T wave abnormality Abnormal ECG When compared with ECG of 23-Feb-2025 13:03, Premature atrial complexes are no longer Present Confirmed by Robi Ceballos ([id number]) on 04/03/2025 4:12:21 AM Referred By: REFERRED SELF Confirmed By: Robi Ceballos
== END 2025-04-01 18:50 | disposition home or self-care (01) | DRG 379 ==
LOC: ED 19:11 → INTOOBSV 23:45 → SUATTDRO 23:45 → 2N 23:45